=== PATIENT | female | born 1980 | race African-American/Black ===

== ENCOUNTER 2017-06-02 11:42 | Emergency (ER) | payer OTHER ==
[~2017-06-02] VITALS: Ht 177.8 cm; Wt 49.9 kg
[~2017-06-02 11:42] MED LIST: AMOX; SULFA
[2017-06-02 12:04] VITALS: BP 132/82
== END 2017-06-02 12:30 | disposition home or self-care (01) ==
LOC: ER 11:42 → EDBD 11:42 → ER 12:30
DX: S20.361A Insect bite (nonvenomous) of right front wall of thorax, initial encounter (principal); S10.96XA Insect bite of unspecified part of neck, initial encounter; S40.861A Insect bite (nonvenomous) of right upper arm, initial encounter; F20.9 Schizophrenia, unspecified; Z21 Asymptomatic human immunodeficiency virus [HIV] infection status; Z88.6 Allergy status to analgesic agent; W57.XXXA Bitten or stung by nonvenomous insect and other nonvenomous arthropods, initial encounter; Y93.89 Activity, other specified; Y99.8 Other external cause status; Y92.89 Other specified places as the place of occurrence of the external cause

== ENCOUNTER 2017-12-26 18:55 | Emergency (ER) | payer OTHER ==
[~2017-12-26] VITALS: Ht 177.8 cm; Wt 59.0 kg
[2017-12-26 19:03] VITALS: BP 123/80
[2017-12-26] MEDS ORDERED: cefTRIAXone SOD 1,000 MG VL IM ONE (22:00)
[2017-12-26] MEDS ORDERED: methylPREDNISolone SOD SUCC 125 MG/2 ML VL IM ONE (22:00)
== END 2017-12-26 21:53 | disposition home or self-care (01) ==
LOC: ER 18:55 → EDBD 18:55 → ER 21:53
DX: K04.7 Periapical abscess without sinus (principal); Z88.6 Allergy status to analgesic agent; Z79.899 Other long term (current) drug therapy
CPT/HCPCS: 96372; 99284; J0696; J2930

== ENCOUNTER 2018-02-01 09:22 | Emergency (ER) | payer OTHER ==
[~2018-02-01] VITALS: Ht 177.8 cm; Wt 61.2 kg
[2018-02-01 10:27] LABS: Urine Pregnacy Test Negative (Negative)
[2018-02-01 10:31] LABS: Alcohol, Urine < 3.0 mg/dL (0-5); Amphetamine Screen, Urine POSITIVE (NEGATIVE); Barbiturate Scree,Urine NEGATIVE (NEGATIVE); Benzodiazephine Screen, Urine NEGATIVE (NEGATIVE); Cannabinoid Screen, Urine POSITIVE (NEGATIVE); Cocaine Screen, Urine NEGATIVE (NEGATIVE); Opiate Scree,Urine NEGATIVE (NEGATIVE); Phencyclidine Screen, Urine NEGATIVE (NEGATIVE)
[2018-02-01 10:41] LABS: Urine Bacteria NONE SEEN /hpf (None Seen); Urine Blood Negative /uL (Negative); Urine Mucus FEW (None Seen); Urine Specific Gravity 1.028 (1.001-1.035); Urine WBC 1 /hpf (0 - 5)
[2018-02-01] MEDS ORDERED: cefTRIAXone SOD 1,000 MG VL IM ONE (10:45)
[2018-02-01] MEDS ORDERED: diphenhdrAMINE HCL 50 MG/1 ML VL IM ONE (10:45)
[2018-02-01 11:45] VITALS: BP 143/87
== END 2018-02-01 11:44 | disposition home or self-care (01) ==
LOC: ER 09:22
DX: N76.0 Acute vaginitis (principal); F15.10 Other stimulant abuse, uncomplicated; Z20.2 Contact with and (suspected) exposure to infections with a predominantly sexual mode of transmission; Z88.6 Allergy status to analgesic agent; Z21 Asymptomatic human immunodeficiency virus [HIV] infection status
CPT/HCPCS: 80307; 81001; 81025; 87210; 96372; 99283; J0696; J1200

== ENCOUNTER 2023-12-08 20:28 | Inpatient (IN) | payer MEDICAID, OTHER ==
[~2023-12-08] VITALS: Ht 179.1 cm; Wt 45.5 kg
[2023-12-08] MEDS: SULFAMETH-TRIMETH 80/16MG-ML 15 ML in D5W 5% 500 ML IV ONE (23:00)
[2023-12-08 23:05] LABS: Basophils # (auto) 0 10 ^3/uL (0-0.2); Eosinophils # (auto) 0 10 ^3/uL (0-0.8); Eosinophils % (auto) 0.2 % (0.0-7.0); Monocytes # (auto) 0.3 10 ^3/uL (0-1.3); Monocytes % (auto) 4.4 % (0.0-12.0)
[2023-12-08 23:08] LABS: Basophils % (auto) 0.1 % (0.0-2.0); Hematocrit 30.1 % (36.0-46.0); Lymphocytes % (auto) 12.6 % (10.0-50.0); Mean Corpuscular Hemoglobin 27.2 pg (28.0-32.0); Mean Corpuscular Volume 82.2 fL (80.0-100.0); Neutrophils # (auto) 6.4 10 ^3/uL (1.6-8.6); Neutrophils % (auto) 82.7 % (37.0-80.0); Platelet Count (auto) 380 10^3/uL (140-450); Red Blood Cells 3.66 10^6/uL (4.0-5.20); Red Cell Distribution Width 19.8 % (11.8-14.3); White Blood Cell 7.8 10^3/uL (4.4-10.8)
[2023-12-08 23:24] LABS: Alanine Aminotransferase 19 U/L (7-40); Albumin 3.4 g/dL (3.2-4.8); Alkaline Phosphatase 116 U/L (46-116); Anion Gap 5 (5-15); Aspartate Aminotransferase 22 U/L (13-40); BUN/Creatinine Ratio 9.4 (10.0-20.0); Bilirubin, Total 0.2 mg/dL (0.2-1.0); Blood Urea Nitrogen 6 mg/dL (9-23); Calcium 9.3 mg/dL (8.7-10.4); Carbon Dioxide 28 mmol/L (20-31); Chloride 103 mmol/L (98-107); Glucose 81 mg/dL (74-106); Potassium 3.4 mmol/L (3.5-5.1); Sodium 136 mmol/L (136-145); Total Protein 9.1 g/dL (5.7-8.2)
[2023-12-09] VITALS (11 sets, daily range): BP systolic 103; BP diastolic 51; PULSE 80–133; RESP 16–20; TEMP 98; O2SAT 95–100
[2023-12-09] MEDS: levoFLOXacin 500MG 100 ML IV ONE
[2023-12-09] MEDS: FLUCONAZOLE 200MG/100ML 100 ML IV ONE
[2023-12-09] MEDS ORDERED: ACETAMINOPHEN 500 MG TAB PO PRN (03:15)
[2023-12-09] MEDS ORDERED: MORPHINE SULFATE INJ 2 MG/ml SYRG IV PRN (03:15)
[2023-12-09] MEDS: PANTOPRAZOLE 40 MG/10 ML VIAL INJ IV ONE (03:15)
[2023-12-09] MEDS: SODIUM CHLORIDE 0.9% 1,000 ML IV ONE ×2 (03:15→08:01)
[2023-12-09] MEDS: POTASSIUM CHL 20MEQ/100ML 100 ML IV SCH (03:15)
[2023-12-09] MEDS: THIAMINE 100mg/ml INJ (200mg/2ml VIAL) IV ONE (03:30)
[2023-12-09] MEDS: cefTRIAXone 1GM/50ML D5W 50 ML IV SCH (03:45)
[2023-12-09] MEDS: metroNIDAZOLE 500MG/100ML 100 ML IV SCH (03:45)
[2023-12-09] MEDS: IPRATROPIUM BROM 0.5 MG/2.5ML INH SOL NEB SCH ×2 (07:23→12:20)
[2023-12-09 07:36] LABS: Anion Gap 6 (5-15); Carbon Dioxide 29 mmol/L (20-31); Chloride 102 mmol/L (98-107); Potassium 3.7 mmol/L (3.5-5.1); Sodium 137 mmol/L (136-145)
[2023-12-09 07:37] LABS: Calcium 9.5 mg/dL (8.7-10.4)
[2023-12-09 07:41] LABS: Glucose 78 mg/dL (74-106)
[2023-12-09 07:42] LABS: BUN/Creatinine Ratio 12.7 (10.0-20.0); Basophils # (auto) 0 10 ^3/uL (0-0.2); Basophils % (auto) 0.1 % (0.0-2.0); Blood Urea Nitrogen 8 mg/dL (9-23); Eosinophils # (auto) 0 10 ^3/uL (0-0.8); Eosinophils % (auto) 0.3 % (0.0-7.0); Hemoglobin 10.6 g/dL (12.2-16.2); Magnesium 2.2 mg/dL (1.6-2.6); Monocytes # (auto) 0.4 10 ^3/uL (0-1.3); Monocytes % (auto) 5.2 % (0.0-12.0); Neutrophils # (auto) 5.7 10 ^3/uL (1.6-8.6); White Blood Cell 7.5 10^3/uL (4.4-10.8)
[2023-12-09 07:44] LABS: INR 1.11 (0.9-1.15); Partial Thromboplastin Time 27.1 SEC (24.5-34.5); Phosphorus 3.1 mg/dL (2.4-5.1); Prothrombin Time 11.7 sec (9.3-11.8)
[2023-12-09 07:48] LABS: Hematocrit 31.7 % (36.0-46.0); Lymphocytes # (auto) 1.3 10 ^3/uL (0.4-5.4); Lymphocytes % (auto) 17.6 % (10.0-50.0); Mean Corpuscular Hemoglobin 27.5 pg (28.0-32.0); Mean Corpuscular Hgb Conc. 33.5 g/dL (32.0-36.0); Mean Corpuscular Volume 82.1 fL (80.0-100.0); Neutrophils % (auto) 76.8 % (37.0-80.0); Nucleated Red Blood Cells % 0.2 %; Platelet Count (auto) 407 10^3/uL (140-450); Red Blood Cells 3.86 10^6/uL (4.0-5.20); Red Cell Distribution Width 19.7 % (11.8-14.3)
[2023-12-09] MEDS ORDERED: OMNIPAQUE 12mg/ml 500ml ORAL SOLUTION PO ONE (07:57)
[2023-12-09] MEDS ORDERED: LEVALBUTEROL HCL 1.25 MG/3 ML NEB NEB SCH (08:30)
[2023-12-09] MEDS ORDERED: IPRATROPIUM BROM 0.5 MG/2.5ML INH SOL NEB SCH (08:30)
[2023-12-09] MEDS: PANTOPRAZOLE 40 MG/10 ML VIAL INJ IV SCH (10:13)
[2023-12-09] MEDS: LEVALBUTEROL HCL 1.25 MG/3 ML NEB NEB SCH (12:20)
[2023-12-09] MEDS: ERGOCALCIFEROL 50,000 UNIT(1.25MG) CAP PO SCH (13:29)
[2023-12-09 13:30] LABS: Free T3 2.01 pg/mL (2.3-4.2)
[2023-12-09 13:35] LABS: Free T4 (Free Thyroxine) 1.14 ng/dL (0.89-1.76)
[2023-12-09] MEDS ORDERED: IOHEXOL 300 MG/ML 100ML BOTTLE IJ ONE (14:00)
[2023-12-09 15:53] LABS: % Iron Saturation 19.7 % (15-50)
[2023-12-09] MEDS: PIPERACILLIN-TAZOB 3.375GM 100 ML IV ONE (16:25)
[2023-12-09] MEDS: FLUCONAZOLE 200MG/100ML 100 ML IV SCH (16:29)
[2023-12-09] MEDS ORDERED: VANCOMYCIN PER PHARMACY 0 MG IV SCH (16:45)
[2023-12-09] MEDS: VANCOMYCIN 750mg/150ml 150 ML IV ONE (17:00)
[2023-12-09] MEDS: MORPHINE SULFATE INJ 2 MG/ml SYRG IV PRN (19:29)
[2023-12-09] MEDS ORDERED: DEXTROSE (50%) 50ML SYRG IV PRN (22:00)
[2023-12-09] MEDS: SODIUM CHLORIDE 0.9% 1,000 ML IV SCH (22:32)
[2023-12-09 23:52] LABS: COVID19 ANTIGEN SOFIA FIA NEGATIVE (NEGATIVE)
[2023-12-09 23:53] LABS: Rapid Influenza A Negative (Negative); Rapid Influenza B Negative (Negative)
[2023-12-10] MEDS: InsuLIN REG 1unit/0.01ml Soln (100units/ml) SC SCH
[2023-12-10] MEDS: PIPERACILLIN-TAZOB 3.375GM 100 ML IV SCH (00:17)
[2023-12-10 00:31] VITALS: BP 141/77; PULSE 84; RESP 16; TEMP 98.2; O2SAT 96
[2023-12-10] MEDS: ACCU-CHEK COMFORT CURVE STRIP VI SCH (00:34)
[2023-12-10 05:00] VITALS: BP 130/50; PULSE 94; RESP 18; TEMP 98.6; O2SAT 97
[2023-12-10 07:15] VITALS: PULSE 78; RESP 18; O2SAT 98
[2023-12-10 07:21] VITALS: PULSE 85; RESP 18; O2SAT 100
[2023-12-10 07:29] LABS: Basophils # (auto) 0 10 ^3/uL (0-0.2); Basophils % (auto) 0.3 % (0.0-2.0); Eosinophils # (auto) 0 10 ^3/uL (0-0.8); Eosinophils % (auto) 0.6 % (0.0-7.0); Hematocrit 26.8 % (36.0-46.0); Lymphocytes % (auto) 16.3 % (10.0-50.0); Mean Corpuscular Hemoglobin 27.3 pg (28.0-32.0); Mean Corpuscular Hgb Conc. 33.5 g/dL (32.0-36.0); Mean Corpuscular Volume 81.5 fL (80.0-100.0); Monocytes # (auto) 0.3 10 ^3/uL (0-1.3); Monocytes % (auto) 4.4 % (0.0-12.0); Neutrophils # (auto) 4.8 10 ^3/uL (1.6-8.6); Neutrophils % (auto) 78.4 % (37.0-80.0); Platelet Count (auto) 396 10^3/uL (140-450); Red Blood Cells 3.29 10^6/uL (4.0-5.20); Red Cell Distribution Width 19.4 % (11.8-14.3); White Blood Cell 6.1 10^3/uL (4.4-10.8)
[2023-12-10 08:10] LABS: Alanine Aminotransferase 10 U/L (7-40); Albumin 2.8 g/dL (3.2-4.8); Alkaline Phosphatase 96 U/L (46-116); Anion Gap 6 (5-15); Aspartate Aminotransferase 11 U/L (13-40); Bilirubin, Total < 0.2 mg/dL (0.2-1.0); Calcium 8.5 mg/dL (8.7-10.4); Carbon Dioxide 24 mmol/L (20-31); Chloride 108 mmol/L (98-107); Glucose 82 mg/dL (74-106); Potassium 3.4 mmol/L (3.5-5.1); Sodium 138 mmol/L (136-145); Total Protein 7.8 g/dL (5.7-8.2)
[2023-12-10 08:53] LABS: BUN/Creatinine Ratio 7.6 (10.0-20.0); Blood Urea Nitrogen 5 mg/dL (9-23)
[2023-12-10 09:00] VITALS: BP 113/76; PULSE 94; RESP 18; TEMP 97.7; O2SAT 97
[2023-12-10] MEDS: FLUCONAZOLE 200MG/100ML 100 ML IV SCH (09:43)
[2023-12-10 10:38] VITALS: BP 121/83; PULSE 84; RESP 18
[2023-12-11 05:06] LABS: Basos 1 % (Not Estab.); Eos 1 % (Not Estab.); Eos (Absolute) 0.1 x10E3/uL (0.0-0.4); Hematocrit 28.3 % (34.0-46.6); Immature Granulocytes (Abs) 0 x10E3/uL (0.0-0.1); Lymphs 20 % (Not Estab.); Lymphs (Absolute) 1.2 x10E3/uL (0.7-3.1); MCH 26.4 pg (26.6-33.0); MCHC 31.8 g/dL (31.5-35.7); MCV 83 fL (79-97); Monocytes 4 % (Not Estab.); Monocytes (Absolute) 0.3 x10E3/uL (0.1-0.9); Neutrophils 74 % (Not Estab.); Neutrophils (Absolute) 4.7 x10E3/uL (1.4-7.0); Platelets 393 x10E3/uL (150-450); RBC 3.41 x10E6/uL (3.77-5.28); RDW 17.5 % (11.7-15.4); WBC 6.3 x10E3/uL (3.4-10.8)
[2023-12-12 11:06] LABS: % CD 4 Pos Lymph 8.8 % (30.8-58.5); % CD 8 Pos Lymph 79.1 % (12.0-35.5); Absolute CD 4 Helper 106 /uL (359-1519); CD4/CD8 Ratio 0.11 (0.92-3.72)
== END 2023-12-10 13:56 | disposition left against medical advice (07) | DRG 892 ==
LOC: ER 20:28 → TELE 12-09 03:13 → TELE-WESTW 12-09 18:50
PROVIDERS: ADMIT Internal Medicine; ATTEND Internal Medicine
DX: J15.69 Pneumonia due to other Gram-negative bacteria (principal); B20 Human immunodeficiency virus [HIV] disease; K22.3 Perforation of esophagus; E43 Unspecified severe protein-calorie malnutrition; K29.71 Gastritis, unspecified, with bleeding; E88.A Wasting disease (syndrome) due to underlying condition; J15.9 Unspecified bacterial pneumonia; Z20.822 Contact with and (suspected) exposure to COVID-19; E87.6 Hypokalemia; F17.200 Nicotine dependence, unspecified, uncomplicated; E55.9 Vitamin D deficiency, unspecified; F20.9 Schizophrenia, unspecified; D53.9 Nutritional anemia, unspecified; K44.9 Diaphragmatic hernia without obstruction or gangrene; Z87.11 Personal history of peptic ulcer disease; Z87.440 Personal history of urinary (tract) infections; Z68.1 Body mass index [BMI] 19.9 or less, adult; Z88.8 Allergy status to other drugs, medicaments and biological substances; Z79.899 Other long term (current) drug therapy
CPT/HCPCS: 36415; 71045; 71260; 74176; 74177; 80048; 80053; 80320; 82306; 82607; 82746; 82962; 83036; 83540; 83550; 83735; 83880; 84100; 84439; 84443; 84481; 84484; 84702; 85025; 85610; 85730; 86360; 86703; 87070; 87077; 87205; 87389; 87426; 87804; 94640; G0378; J1450; J2470; J2543; J3490

== ENCOUNTER 2024-09-27 18:11 | Inpatient (IN) | payer MEDICAID ==
[~2024-09-27] VITALS: Ht 167.6 cm; Wt 63.3 kg
--- NOTE | 2024-09-27 18:30 | ED.PDOC ---
History of Present Illness HPI Comments 44-year-old female who comes in with chief complaint of bilateral leg swelling since September 13. The patient was admitted to [facility] for seven days for pneumonia and then discharged from [facility] on the 13 of September. The patient states that she is having some shortness a breath with exertion but denies any chest pain, nausea or vomiting. There has been no diarrhea or fever. 911 was called and the patient was transported to our facility without any difficulty. Time Seen by MD: 18:14 Primary Care Provider: N/A Reviewed Notes: Nurses Notes, Medications, Allergies (No allergies to medications) Allergies: Coded Allergies: Ibuprofen (Verified Allergy, Unknown, 01/03/14) Uncoded Allergies: NO KNOWN (Allergy, Unknown, 12/08/23) Home Meds No Active Prescriptions or Reported Meds Information Source: Patient Mode of Arrival: EMS Severity: Moderate Duration: Since onset Past Medical History PAST MEDICAL HISTORY: Anxiety, HIV, PUD, Schizophrenia Surgical History: Denies all surgeries ABRADING MACHINE TENDER History: No Pertinent ABRADING MACHINE TENDER History Family History Family History: No family hx of Cancer, No family hx of DM Social History Smoker: Non-Smoker Alcohol: Denies ETOH Use Drugs: Denies Drug Use Lives In: Home Constitutional: denies: chills, diaphoresis, fatigue, fever, malaise, sweats, weakness, others EENTM: denies: blurred vision, double vision, ear bleeding, ear discharge, ear drainage, ear pain, ear ringing, eye pain, eye redness, hearing loss, mouth pain, mouth swelling, nasal discharge, nose bleeding, nose congestion, nose pain, photophobia, tearing, throat pain, throat swelling, voice changes, others Respiratory: denies: cough, hemoptysis, orthopnea, SOB at rest, shortness of breath, SOB with excertion, stridor, wheezing, others Cardiovascular: denies: chest pain, dizzy spells, diaphoresis, Dyspnea on exertion, edema, irregular heart beat, left arm pain, lightheadedness, palpitations, PND, syncope, others Gastrointestinal: denies: abdomen distended, abdominal pain, blood streaked bowels, constipated, diarrhea, dysphagia, difficulty swallowing, hematemesis, melena, nausea, poor appetite, poor fluid intake, rectal bleeding, rectal pain, vomiting, others Genitourinary: denies: abnormal vagina bleeding, burning, dyspareunia, dysuria, flank pain, frequency, hematuria, incontinence, pain, , vagina discharge, urgency, others Neurological: denies: dizziness, fainting, headache, left sided numbness, left sided weakness, numbness, paresthesia, pre-existing deficit, right sided numbness, right sided weakness, seizure, speech problems, tingling, tremors, weakness, others Musculoskeletal: reports: joint swelling (b/l lower extremity); denies: back pain, gout, joint pain, muscle pain, muscle stiffness, neck pain, others Integumetry: denies: bruises, change in color, change in hair/nails, dryness, laceration, lesions, lumps, rash, wounds, others Allergic/Immunocompromised: denies: Difficulty Healing, Frequent Infections, Hives, Itching, others Hematologic/Lymphatic: denies: anemia, blood clots, easy bleeding, easy b ruising, swollen glands, others Endocrine: denies: excessive hunger, excessive sweating, excessive thirst, excessive urination, flushing, intolerance to cold, intolerance to heat, unexplained weight gain, unexplained weight loss, others Psychiatric: denies: anxiety, bipolar disorder, depression, hopeless, panic disorder, schizophrenia, sleepless, suicidal, others Physical Exam General Appearance: Moderate Distress HEENT: Normal ENT Inspection, Pharynx Normal, TMs Normal Neck: Full Range of Motion, Non-Tender, Normal, Normal Inspection Respiratory: Chest Non-Tender, Lungs Clear, No Accessory Muscle Use, No Respiratory Distress, Normal Breath Sounds Cardiovascular: No Edema, No JVD, No Murmur, No Gallop, Regular Rate/Rhythm Breast Exam: Deferred Gastrointestinal: No Organomegaly, Non Tender, No Pulsatile Mass, Normal Bowel Sounds, Soft Genitalia: Deferred Pelvic: Deferred Rectal: Deferred Extremities: No calf tenderness, Normal capillary refill, Normal inspection, Normal range of motion, Non-tender, No pedal edema Musculoskeletal : Apperance: Normal Neurologic: Alert, technical inspector II-XII nml as Tested, No Motor Deficits, Normal Affect, Normal Mood, No Sensory Deficits Cerebellar Function: Normal Reflexes: Normal Skin: Dry, Normal Color, Warm Lymphatic: No Adenopathy Was a procedure done? Was a procedure done?: No EKG EKG : Pulse Rate (adult): 106 [place]: Normal Cardiac Rhythm: ST ST: Nonsp (Low voltage) Differential Dx Considerations may include: Acute on chronic diastolic heart failure, CHF, pedal edema, electrolyte imbalance, renal failure X-Ray, Labs, Meds, VS Vital Signs Date Time Temp Pulse Resp B/P (MAP) Pulse Ox O2 Delivery O2 Flow Rate FiO2 09/27/24 20:00 117 16 112/76 (88) 97 09/27/24 19:36 118/87 09/27/24 19:04 106 09/27/24 19:01 102 18 96 Room Air* 0 21 09/27/24 18:46 97.9 110 22 103/73 99 97.9 09/27/24 18:44 98.2 105 24 88/61 (70) 97 98.2 09/27/24 18:24 106 Lab Test 09/27/24 19:26 09/27/24 18:26 Range/Units Troponin I High Sensitivity 24 24 </=34 ng/L White Blood Count 5.1 4.4-10.8 10^3/uL Red Blood Count 3.71 L 4.0-5.20 10^6/uL Hemoglobin 8.7 L 12.2-16.2 g/dL Hematocrit 27.7 L 36.0-46.0 % Mean Corpuscular Volume 74.7 L 80.0-100.0 fL Mean Corpuscular Hemoglobin 23.5 L 28.0-32.0 pg Mean Corpuscular Hemoglobin Concent 31.5 L 32.0-36.0 g/dL Red Cell Distribution Width 19.6 H 11.8-14.3 % Platelet Count 360 140-450 10^3/uL Mean Platelet Volume 6.8 L 6.9-10.8 fL Neutrophils (%) (Auto) 45.9 37.0-80.0 % Lymphocytes (%) (Auto) 43.8 10.0-50.0 % Monocytes (%) (Auto) 8.0 0.0-12.0 % Eosinophils (%) (Auto) 1.4 0.0-7.0 % Basophils (%) (Auto) 0.9 0.0-2.0 % Neutrophils # (Auto) 2.3 1.6-8.6 10 ^3/uL Lymphocytes # (Auto) 2.2 0.4-5.4 10 ^3/uL Monocytes # (Auto) 0.4 0-1.3 10 ^3/uL Eosinophils # (Auto) 0.1 0-0.8 10 ^3/uL Basophils # (Auto) 0 0-0.2 10 ^3/uL Nucleated Red Blood Cells 0.3 % Sodium Level 143 136-145 mmol/L Potassium Level 3.5 3.5-5.1 mmol/L Chloride Level 110 H 98-107 mmol/L Carbon Dioxide Level 23 20-31 mmol/L Anion Gap 10 5-15 Blood Urea Nitrogen 12 9-23 mg/dL Creatinine 0.79 0.550-1.02 mg/dL Glomerular Filtration Rate Calc 93 >90 mL/min BUN/Creatinine Ratio 15.2 10.0-20.0 Serum Glucose 85 74-106 mg/dL Calcium Level 8.7 8.7-10.4 mg/dL B-Type Natriuretic Peptide 1028.34 0-100 pg/mL Current Medications Medications (Trade) Dose Ordered Sig/Dilip Route Start Time Stop Time Status Last Admin Furosemide (Lasix Injection) 40 mg ONCE ONCE IV 09/27/24 18:15 09/27/24 18:17 DC 09/27/24 19:36 EXAM: XY CHEST PORTABLE IMPRESSION: Cardiomegaly, pulmonary vascular congestion, and right pleural effusion. The CBC is within normal limits except for a hemoglobin of 8.7 and hematocrit of 27.7 The platelets of 360 The chemistry panel is within normal limits The BNP is elevated at 1028 The chest x-ray shows some cardiomegaly with pulmonary vascular congestion The chest x-ray shows a right pleural effusion At this time, the patient is being admitted to the hospitalist Images Reviewed?: Images reviewed and evaluated by me Time of 1ST Reevaluation: 19:03 Reevaluation 1ST: Unchanged Patient Education/Counseling: Diagnosis, Treatment, Prognosis Family Education/Counseling: No Family Present SEPSIS Sepsis Screen Physician Orders Urinalysis (09/27/24 18:14) Chest Portable (09/27/24 18:14) Heplock Iv (09/27/24 18:14) Pulse Oximetry (09/27/24 18:14) Outpatient Physical Therapist Assistant (09/27/24 18:14) Blood Pressure (09/27/24 18:14) Drug Screen (09/27/24 18:14) Troponin-I Hs (09/27/24 21:14) Electrocardigram (09/27/24 19:14) Electrocardigram (09/27/24 21:14) Vital Signs Date Time Temp Pulse Resp B/P (MAP) Pulse Ox O2 Delivery O2 Flow Rate FiO2 09/27/24 20:00 117 16 112/76 (88) 97 09/27/24 19:36 118/87 09/27/24 19:04 106 09/27/24 19:01 102 18 96 Room Air* 0 21 09/27/24 18:46 97.9 110 22 103/73 99 97.9 09/27/24 18:44 98.2 105 24 88/61 (70) 97 98.2 09/27/24 18:24 106 Laboratory Tests Test 09/27/24 18:26 White Blood Count 5.1 10^3/uL (4.4-10.8) Medications Medications Dose Ordered Sig/Dilip Route Start Time Stop Time Status Last Admin Dose Admin Furosemide 40 mg ONCE ONCE IV 09/27/24 18:15 09/27/24 18:17 DC 09/27/24 19:36 Departure 1 Departure Time of Disposition: 19:02 Impression: Primary Impression: Acute diastolic heart failure Additional Impressions: Pedal edema Pleural effusion, right Disposition: ADMITTED INPATIENT Admit to: Tele Condition: Fair e-Prescriptions No Active Prescriptions or Reported Meds Critical Care Note Critical Care Time?: Yes (45 min-critical care time only) Stability Stability form required: Yes Unstable for transfer: Telemetry monitoring (Telemetry monitoring required), ED Physician Assesment (Clinical assesment) Heart Score Heart Score: Heart Score Response (Comments) Value History Moderate Suspicious 1 EKG Normal 0 Age 45-64 1 Risk Factors 1 or 2 risk factors 1 Troponin Normal limit 0 Total 3 I personally scribed for MIKAL POST MD ([email or web address]) on 09/27/24 at 19:42. Electronically submitted by Shannan Euceda ([facility]). I personally scribed for MIKAL POST MD ([email or web address]) on 09/27/24 at 19:44. Electronically submitted by Shannan Euceda ([facility]). MIKAL POST MD Sep 27, 2024 18:30
[2024-09-27 18:42] LABS: Hemoglobin 8.7 g/dL (12.2-16.2)
[2024-09-27 18:43] LABS: Hematocrit 27.7 % (36.0-46.0); Mean Corpuscular Hemoglobin 23.5 pg (28.0-32.0); Mean Corpuscular Volume 74.7 fL (80.0-100.0); Nucleated Red Blood Cells % 0.3 %
[2024-09-27 18:50] LABS: Sodium 143 mmol/L (136-145)
[2024-09-27 18:51] LABS: Anion Gap 10 (5-15); Carbon Dioxide 23 mmol/L (20-31)
[2024-09-27 18:56] LABS: BUN/Creatinine Ratio 15.2 (10.0-20.0); Blood Urea Nitrogen 12 mg/dL (9-23); Glucose 85 mg/dL (74-106)
[2024-09-27 19:01] VITALS: PULSE 102; RESP 18; O2SAT 96
[2024-09-27 19:01] LABS: Calcium 8.7 mg/dL (8.7-10.4); Chloride 110 mmol/L (98-107); Potassium 3.5 mmol/L (3.5-5.1)
--- NOTE | 2024-09-27 19:01 | ECG ---
[facility] Test Date: 2024-09-27 Test Time: 18:20:07 Pat Name: LILLIAN RAMIREZ Department: ED Room: [facility]24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
--- NOTE | 2024-09-27 19:34 | DVH ---
EXAM: XY CHEST PORTABLE CLINICAL HISTORY: sob TECHNIQUE: Single AP view of the chest WID: COMPARISON: None FINDINGS: Lines and tubes: None Chest: Cardiomegaly and pulmonary vascular congestion. Small right pleural effusion. No pneumothorax or left pleural effusion. The osseous structures are grossly intact. IMPRESSION: Cardiomegaly, pulmonary vascular congestion, and right pleural effusion.
[2024-09-27] MEDS: FUROSEMIDE 40 MG/4 ML VIAL IV ONE (19:36)
[2024-09-27 20:28] LABS: Urine Protein, UAD Negative (Negative)
[2024-09-27 20:44] LABS: Amphetamine Screen, Urine Pos (NEGATIVE); Barbiturate Scree,Urine Neg (NEGATIVE); Benzodiazephine Screen, Urine Neg (NEGATIVE); Cannabinoid Screen, Urine Neg (NEGATIVE); Cocaine Screen, Urine Neg (NEGATIVE); Opiate Scree,Urine Neg (NEGATIVE); Phencyclidine Screen, Urine Neg (NEGATIVE)
[2024-09-27] MEDS ORDERED: ONDANSETRON HCL 4 MG/2 ML VIAL IV PRN (20:45)
--- NOTE | 2024-09-27 20:46 | DVHHP2 ---
History of Present Illness Reason for Visit: Lower extremity swelling History of Present Illness 44-year-old female presents for evaluation of lower extremity swelling. Patient reports not taking her Lasix for the past two days. She reports worsening lower extremity swelling with associated chest tightness and mild shortness for breath. Denies fever or chills. Past Medical History Schizophrenia, HIV, congestive heart failure Past Surgical History Denies Family History Noncontributory Smoke: No ALCOHOL: none Drugs: None Lives: with Family Review of Systems Review of Systems Review of systems are currently negative otherwise addressed in HPI. Allergies: Coded Allergies: Ibuprofen (Verified Allergy, Unknown, 01/03/14) Uncoded Allergies: NO KNOWN (Allergy, Unknown, 12/08/23) Exam Vital Signs Vital Signs Date Time Temp Pulse Resp B/P (MAP) Pulse Ox O2 Delivery O2 Flow Rate FiO2 09/27/24 20:00 117 16 112/76 (88) 97 09/27/24 19:01 Room Air* 0 21 09/27/24 18:46 97.9 97.9 Exam Gen: 44-year-old female in mild distress Skin: Warm, dry, normal color and texture, no rash. HEENT: Normocephalic atraumatic, mucous membranes moist and pink. Neck: Cervical and supraclavicular nodes normal without enlargement, trachea is midline, thyroid gland is normal without masses. Pulmonary: Clear to auscultation and percussion bilaterally. Cardiac: Regular rate and rhythm. No murmur Abdomen: Soft, nontender, nondistended, bowel sounds present all 4 quadrants, no guarding, no rigidity, no organomegaly. Extremities: No cyanosis, clubbing, plus two bilateral lower extremity edema Neuro: Cranial nerves II through XII grossly intact, normal affect and speech, no focal motor deficits. Labs/Xrays ORDERING PHYSICIAN: MIKAL POST MD PROCEDURE(s): CXRP - CHEST PORTABLE REASON: sob ORDER NUMBER(s): [id number], ACCESSION NUMBER(s): [id number] EXAM: XY CHEST PORTABLE CLINICAL HISTORY: sob TECHNIQUE: Single AP view of the chest WID: COMPARISON: None FINDINGS: Lines and tubes: None Chest: Cardiomegaly and pulmonary vascular congestion. Small right pleural effusion. No pneumothorax or left pleural effusion. The osseous structures are grossly intact. IMPRESSION: Cardiomegaly, pulmonary vascular congestion, and right pleural effusion. Labs Test 09/27/24 19:26 09/27/24 18:26 09/27/24 18:14 Range/Units Troponin I High Sensitivity 24 </=34 ng/L White Blood Count 5.1 4.4-10.8 10^3/uL Red Blood Count 3.71 L 4.0-5.20 10^6/uL Hemoglobin 8.7 L 12.2-16.2 g/dL Hematocrit 27.7 L 36.0-46.0 % Mean Corpuscular Volume 74.7 L 80.0-100.0 fL Mean Corpuscular Hemoglobin 23.5 L 28.0-32.0 pg Mean Corpuscular Hemoglobin Concent 31.5 L 32.0-36.0 g/dL Red Cell Distribution Width 19.6 H 11.8-14.3 % Platelet Count 360 140-450 10^3/uL Mean Platelet Volume 6.8 L 6.9-10.8 fL Neutrophils (%) (Auto) 45.9 37.0-80.0 % Lymphocytes (%) (Auto) 43.8 10.0-50.0 % Monocytes (%) (Auto) 8.0 0.0-12.0 % Eosinophils (%) (Auto) 1.4 0.0-7.0 % Basophils (%) (Auto) 0.9 0.0-2.0 % Neutrophils # (Auto) 2.3 1.6-8.6 10 ^3/uL Lymphocytes # (Auto) 2.2 0.4-5.4 10 ^3/uL Monocytes # (Auto) 0.4 0-1.3 10 ^3/uL Eosinophils # (Auto) 0.1 0-0.8 10 ^3/uL Basophils # (Auto) 0 0-0.2 10 ^3/uL Nucleated Red Blood Cells 0.3 % Sodium Level 143 136-145 mmol/L Potassium Level 3.5 3.5-5.1 mmol/L Chloride Level 110 H 98-107 mmol/L Carbon Dioxide Level 23 20-31 mmol/L Anion Gap 10 5-15 Blood Urea Nitrogen 12 9-23 mg/dL Creatinine 0.79 0.550-1.02 mg/dL Glomerular Filtration Rate Calc 93 >90 mL/min BUN/Creatinine Ratio 15.2 10.0-20.0 Serum Glucose 85 74-106 mg/dL Calcium Level 8.7 8.7-10.4 mg/dL B-Type Natriuretic Peptide 1028.34 0-100 pg/mL Urine Color Colorless Yellow Urine Clarity Clear Clear Urine pH 6.0 5.0-9.0 Urine Specific [place] 1.008 1.001-1.035 Urine Protein Negative Negative Urine Ketones Negative Negative Urine Blood Negative Negative /uL Urine Nitrite Negative Negative Urine Bilirubin Negative Negative Urine Urobilinogen Normal Negative mg/dL Urine Leukocyte Esterase Trace Negative /uL Urine RBC 1 0 - 4 /hpf Urine Microscopic WBC 2 0-5 /HPF Urine Squamous Epithelial Cells Few <5 /hpf Urine Bacteria Few H None Seen /hpf Urine Glucose Normal Normal mg/dL SEPSIS Sepsis Screen Date sepsis recognized/suspect: Sep 27, 2024 Time Sepsis recognized/suspect: 1809 Recent Procedure: No On Antibiotic Therapy: No Respiratory Rate >20: Yes Heart Rate >90: Yes Temp<36 C (96.8 F) or >38.3 C: No SBP <90 or MAP <65 mmHG: No New Acute Mental Status Change: No Is the patient on CPAP, BIPAP,: No Physician Orders Chest Portable (09/27/24 18:14) Heplock Iv (09/27/24 18:14) Pulse Oximetry (09/27/24 18:14) Educational Technology Specialist (09/27/24 18:14) Blood Pressure (09/27/24 18:14) Drug Screen (09/27/24 18:14) Electrocardigram (09/27/24 19:14) Electrocardigram (09/27/24 21:14) Admit (09/27/24 20:24) Vital Signs Date Time Temp Pulse Resp B/P (MAP) Pulse Ox O2 Delivery O2 Flow Rate FiO2 09/27/24 20:00 117 16 112/76 (88) 97 09/27/24 19:36 118/87 09/27/24 19:04 106 09/27/24 19:01 102 18 96 Room Air* 0 21 09/27/24 18:46 97.9 110 22 103/73 99 97.9 09/27/24 18:44 98.2 105 24 88/61 (70) 97 98.2 09/27/24 18:24 106 Laboratory Tests Test 09/27/24 18:26 White Blood Count 5.1 10^3/uL (4.4-10.8) Medications Medications Dose Ordered Sig/Dilip Route Start Time Stop Time Status Last Admin Dose Admin Furosemide 40 mg ONCE ONCE IV 09/27/24 18:15 09/27/24 18:17 DC 09/27/24 19:36 40 MG Assessment/Plan Assessment/Plan Assessment Acute on chronic congestive heart failure Plan Admit the patient to [facility] to the hospitalist OLLIE Archibald Resume home medications Continue treatment per orders. Plan discussed with: Patient My Orders Orders - PRERNA KAN Procedure Category Date Status Time Admit ADMIT 09/27/24 Transmitted 20:24 Date of Service: Sep 27, 2024 Billing Provider: PRERNA KAN Common Visit Codes: [id number] INP/OBS CARE (HIGH) PRERNA KAN Sep 27, 2024 20:46
[2024-09-27 21:30] VITALS: PULSE 109; RESP 18; O2SAT 96
[2024-09-27] MEDS: ATORVASTATIN 20 MG TAB PO SCH (22:25)
[2024-09-27] MEDS: CARVEDILOL 3.125 MG TAB PO SCH (22:26)
[2024-09-28] VITALS (8 sets, daily range): BP systolic 90–113; BP diastolic 63–82; PULSE 82–102; RESP 14–21; TEMP 97.7–98.3; O2SAT 95–99
[2024-09-28 05:55] LABS: Calcium 8.9 mg/dL (8.7-10.4); Sodium 143 mmol/L (136-145)
[2024-09-28 05:56] LABS: Anion Gap 9 (5-15); Carbon Dioxide 26 mmol/L (20-31)
[2024-09-28] MEDS: FUROSEMIDE 20 MG/2 ML VIAL IV SCH (06:00)
[2024-09-28 06:01] LABS: BUN/Creatinine Ratio 12.5 (10.0-20.0); Blood Urea Nitrogen 10 mg/dL (9-23); Glucose 89 mg/dL (74-106)
[2024-09-28 06:09] LABS: Chloride 108 mmol/L (98-107); Potassium 3.2 mmol/L (3.5-5.1)
[2024-09-28 09:49] LABS: Alanine Aminotransferase 28.0 U/L (7-40); Alkaline Phosphatase 108.0 U/L (46-116); Bilirubin, Direct 0.2 mg/dL (<0.3); Bilirubin, Total 0.5 mg/dL (0.2-1.0); Total Protein 8.0 g/dL (5.7-8.2)
[2024-09-28 09:50] LABS: Albumin 3.0 g/dL (3.2-4.8)
[2024-09-28 09:51] LABS: Hematocrit 28.9 % (36.0-46.0); Hemoglobin 9.1 g/dL (12.2-16.2); Mean Corpuscular Hemoglobin 23.6 pg (28.0-32.0); Mean Corpuscular Volume 74.6 fL (80.0-100.0)
[2024-09-28 10:09] LABS: Total Cells Counted 100.0 (100)
[2024-09-28 10:56] LABS: Hepatitis B Surface Antigen Negative (Negative)
[2024-09-28 10:57] LABS: Hepatitis C Antibody Negative (Negative)
[2024-09-28] MEDS: POTASSIUM EFFERVESENT TAB 25 MEQ PO ONE (11:08)
[2024-09-28] MEDS: FUROSEMIDE 20 MG/2 ML VIAL IV ONE (13:15)
--- NOTE | 2024-09-28 14:49 | DVHPNRES ---
Progress Note Date Seen: Sep 28, 2024 Resident Creating Document: CHRISTOPHER BOWMAN RESIDENT Medical Necessity Reason Pt with a Central, PICC or Fol: No Subjective Review of Systems Patient is a 44 year old female with prior medical history of CHF, AIDS, and methamphetamine use who presented to the ED with chief complaint of bilateral leg swelling. Per the patient, she began to notice the bilateral leg swelling beginning in her feet after her discharge from [facility] on September 13, where she was admitted for pneumonia. She states that the swelling progressed and extended to her thighs, associated with pain when ambulating, and shortness of breath when walking from her car to her room, which prompted her to seek medical care. She denied chest pain, shortness of breath at rest, palpitations, fevers, chills, nausea, vomiting, and other symptoms. On evaluation in the ED, 12 Lead EKG shows sinus tachycardia, initial labs show CBC and CMP within normal range, troponins negative, BNP 1028.34, and UDS positive for amphetamines use. Chest Xray shows cardiomegaly, pulmonary vascular congestion, and right pleural effusion. She was started on IV Lasix and was admitted for further work up and monitoring. Surgical: Reconstructive surgery of the eye socket Social: Refers amphetamine use stating she last used 4 days ago, refers she smoked 1-2 cigarettes a week for about 9 years with cessation in May of 2024, denies alcohol use. Currently is a resident at [facility]. Patient seen at bedside. Patient is AOx3, states she feels better, leg swelling as reduced and she is able to ambulate better, and shortness of breath has resolved. She denies chest pain, shortness of breath, leg pain, palpitations, fever, nausea and vomiting. No adverse events over night. Patient was slightly hypotensive, but otherwise stable. Per the patient, in May she had an Echocardiogram done at [facility] which showed an EF of 15%, however she still has not seen a wood casket assembler and isn't on any treatment as of yet. Pending echocardiogram. Cardiology has been consulted for initiation of GDMT. Review of Systems: Constitutional: Denies weight loss, fever and chills. HEENT: Denies changes in vision and hearing. Respiratory: Denies shortness of breath and cough Cardiovascular: Denies chest discomfort or palpitations GI: Denies abdominal distention, abdominal pain, diarrhea : Denies dysuria and urinary frequency. Musculoskeletal: Denies symptoms Skin: Denies rash and pruritus. Neurological: denies dizziness headache vision or hearing problems Objective vital signs Vital Sign Date Time Temp Pulse Resp B/P (MAP) Pulse Ox O2 Delivery O2 Flow Rate FiO2 09/28/24 13:15 102/75 09/28/24 12:09 101 09/28/24 09:00 98.3 18 95 98.3 09/28/24 08:00 Room Air* 0 21 Total Intake and Output 09/27/24 09/27/24 09/28/24 15:00 23:00 07:00 Intake Total 200 ml Output Total 675 ml Balance -475 ml medications Current Medications Medications Dose Ordered Sig/Dilip Route Start Time Stop Time Status Last Admin Dose Admin Furosemide 20 mg BIDD IV 09/28/24 06:00 Aspirin 81 mg DAILY PO 09/28/24 10:00 09/28/24 11:09 81 MG Atorvastatin Calcium 40 mg HS PO 09/27/24 22:00 09/27/24 22:25 40 MG Acetaminophen 650 mg Q6HP PRN PO 09/27/24 20:45 Carvedilol 3.125 mg Q12HR PO 09/27/24 22:00 09/28/24 11:09 3.125 MG Examination General: Patient is comfortable, alert and oriented in person place and time. Patient following commands HEENT: Normocephalic, atraumatic, EOM intact, pink conjunctiva, pink moist mucous membrane Respiratory/pulmonary: Bilateral chest expansion, clear lungs bilaterally, vesicular murmurs present in almost all lung juarez, with crackles and inspiratory wheezes mainly in R lower lung field. Cardiovascular: Normal RRR, normal S1 and S2 Abdomen: Abdomen nondistended, normal bowel sounds, soft, no pain to palpation in any of the abdominal quadrants, no palpable masses. Extremities: No deformities, bilateral pedal edema present +1, normal pulses. Skin: No rashes or pruritus Neurological: Intact cranial nerves with no focal neurologic deficits laboratory and microbiology Laboratory Tests 09/28/24 05:10 09/28/24 05:01 Test 09/28/24 05:10 Range/Units Serum Glucose 89 74-106 mg/dL Problem List/Assessment/Plan Problem List/Assessment/Plan Assessment and Plan: Acute on Chronic HFrEF exacerbation -Furosemide 20 mg IV daily -Carvedilol 3.125 mg q12 hr PO -Pending Echo -Cardiology has been consulted -Fluid restriction: 1200 mL -Cardiac consistent diet -Strict Is and Os Right Pleural Effusion -Chest Xray: Cardiomegaly, pulmonary vascular congestion, and right pleural effusion. History of AIDS -CD4/CD8 ratio profile Methamphetamine Use -UDS: + amphetamine -Counseled on cessation for over 15 minutes Non-compliance with medications DVT prophylaxis: Ambulatory Case discussed with Dr. Tucker. Goals of care discussed with the patient for over 30 minutes. States she understands and agrees. Plan discussed with: Patient My Orders My Orders Orders - CHRISTOPHER BOWMAN Procedure Category Date Status Time * Cardiology Consult CONS 09/28/24 Transmitted 14:26 Date of Service: Sep 28, 2024 Billing Provider: LUDIVINA TUCKER MD Common Visit Codes: [id number] INP/OBS CARE(HIGH) Secondary Visit Codes: [id number] CARE PLAN 30 MINUTES CHRISTOPHER BOWMAN RESIDENT Sep 28, 2024 14:49 LUDIVINA TUCKER MD Sep 29, 2024 21:03
--- NOTE | 2024-09-28 16:08 | DVHINCON2 ---
Date Seen: Sep 28, 2024 Referring Physician MD Amrit resident History of Present Illness This is a 44-year-old female patient who presents to emergency room with chief complaint of bilateral lower extremity edema for two weeks prior to emergency room arrival. Cardiology has been consulted at this time for patient's history of congestive heart failure. Initial twelve lead electrocardiogram reveals sinus tachycardia with prolonged QTc interval. Initial troponin level of 24ng/L with flat trend thereafter. Initial BNP level of 1028.34pg/mL. Significant past medical history includes congestive heart failure, AIDS, tobacco use, and methamphetamine use. 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 Past Medical History Past medical history reviewed. No other significant than mentioned above. Past Surgical History Reconstruction of the eye socket Family History: Diabetes mellitus G8 MOTHER Hypertension G8 MOTHER Family History Family history reviewed. Social History Patient has history of tobacco use, states that she has recently tried to smoke cigarette and became on short of breath (prior history of 1-2 cigarettes per week) Patient admits to recent methamphetamine use, approximately four days prior to emergency room arrival Denies alcohol use Allergies: Coded Allergies: Ibuprofen (Verified Allergy, Unknown, 01/03/14) Uncoded Allergies: NO KNOWN (Allergy, Unknown, 12/08/23) Home Meds No Active Prescriptions or Reported Meds Current Medications Current Medications Medications (Trade) Dose Ordered Sig/Dilip Route PRN Reason Start Time Stop Time Status Last Admin Furosemide (Lasix Injection) 20 mg BIDD IV 09/28/24 06:00 Aspirin 81 mg DAILY PO 09/28/24 10:00 09/28/24 11:09 Atorvastatin Calcium (Lipitor) 40 mg HS PO 09/27/24 22:00 09/27/24 22:25 Ondansetron HCl (Zofran) 4 mg Q4HP PRN IV NAUSEA / VOMITING 09/27/24 20:45 09/28/24 09:30 DC Acetaminophen (Tylenol Tablet) 650 mg Q6HP PRN PO PAIN SCALE 1-3 OR TEMP>100.4 09/27/24 20:45 Carvedilol (Coreg Tablet) 3.125 mg Q12HR PO 09/27/24 22:00 09/28/24 11:09 Review of Systems Constitutional: No symptom reported Ears, Nose, & Throat: No symptom reported Eyes: No symptom reported Neurological: No symptoms reported Pulmonary/Respiratory: Shortness of breath Cardiovascular: Bilateral lower extremity edema Gastrointestinal: No symptom reported Genitourinary: No symptom reported Musculoskeletal: No symptom reported Skin: No symptom reported Psychiatric: No symptom reported Endocrine: No symptom reported Hematologic/Lymphatic: No symptom reported Vital Signs Vital Signs Date Time Temp Pulse Resp B/P (MAP) Pulse Ox O2 Delivery O2 Flow Rate FiO2 09/28/24 13:15 102/75 09/28/24 13:00 98.3 101 17 98 98.3 09/28/24 08:00 Room Air* 0 21 Physical Exam General Appearance: Cooperative. Well-developed. Well-nourished. No acute distress. Pulmonary/Respiratory: Coarse sounds throughout all lung juarez Cardiovascular/Chest: Regular rate and rhythm. Peripheral Pulses: 2+ Radial (R). 2+ Radial (L). 2+ Pedal (R). 2+ Pedal (L) Abdominal Exam: Normal bowel sounds. Ankle Exam: +pitting edema Lower extremities: 1+ pitting edema Neuro/Mental Status: A/OX4, coherent. Thoughts/Psych: Normal thought pattern. Appropriate mood and affect. Good ju dgment and insight. Appearance: No acute distress. Skin Exam: Normal inspection. Normal color. Warm and dry. Labs/Diagnostic Data Labs Test 09/28/24 14:58 09/28/24 05:10 09/28/24 05:01 09/27/24 19:26 Range/Units Sodium Level 143 136-145 mmol/L Potassium Level 3.2 L 3.5-5.1 mmol/L Chloride Level 108 H 98-107 mmol/L Carbon Dioxide Level 26 20-31 mmol/L Anion Gap 9 5-15 Blood Urea Nitrogen 10 9-23 mg/dL Creatinine 0.80 0.550-1.02 mg/dL Glomerular Filtration Rate Calc 92 >90 mL/min BUN/Creatinine Ratio 12.5 10.0-20.0 Serum Glucose 89 74-106 mg/dL Calcium Level 8.9 8.7-10.4 mg/dL Hepatitis B Surface Antigen Negative Negative Hepatitis C Antibody Negative Negative Mean Platelet Volume 7.4 6.9-10.8 fL Neutrophils # (Auto) 1.6-8.6 10 ^3/uL Lymphocytes # (Auto) 0.4-5.4 10 ^3/uL Monocytes # (Auto) 0-1.3 10 ^3/uL Differential Total Cells Counted 100.0 100 Neutrophils % (Manual) 41 37.0-80.0 Band Neutrophils % (Manual) 0 Lymphocytes % (Manual) 52 H 10.0-50.0 Monocytes % (Manual) 3 0-12 Eosinophils % (Manual) 3 0-7 Basophils % (Manual) 0 0.0-2.0 Metamyelocytes % (manual) 0 Myelocytes % (Manual) 0 Promyelocytes % (Manual) 0 Blast Cells % (Manual) 0 Reactive Lymphocytes 1 Platelet Estimate Adequate Hypochromasia (manual) Slight Microcytosis Moderate Magnesium Level 2.0 1.6-2.6 mg/dL Total Bilirubin 0.5 0.2-1.0 mg/dL Direct Bilirubin 0.2 <0.3 mg/dL Aspartate Amino Transferase (AST) 40 13-40 U/L Alanine Aminotransferase (ALT) 28 7-40 U/L Alkaline Phosphatase 108 46-116 U/L Total Protein 8.0 5.7-8.2 g/dL Albumin 3.0 L 3.2-4.8 g/dL Troponin I High Sensitivity 24 </=34 ng/L Test 09/27/24 18:26 09/27/24 18:14 Range/Units Eosinophils # (Auto) 0.1 0-0.8 10 ^3/uL Basophils # (Auto) 0 0-0.2 10 ^3/uL B-Type Natriuretic Peptide 1028.34 0-100 pg/mL Urine Color Colorless Yellow Urine Clarity Clear Clear Urine pH 6.0 5.0-9.0 Urine Specific [place] 1.008 1.001-1.035 Urine Protein Negative Negative Urine Ketones Negative Negative Urine Blood Negative Negative /uL Urine Nitrite Negative Negative Urine Bilirubin Negative Negative Urine Urobilinogen Normal Negative mg/dL Urine Leukocyte Esterase Trace Negative /uL Urine RBC 1 0 - 4 /hpf Urine Microscopic WBC 2 0-5 /HPF Urine Squamous Epithelial Cells Few <5 /hpf Urine Bacteria Few H None Seen /hpf Urine Glucose Normal Normal mg/dL Urine Opiates Screen Neg NEGATIVE Urine Fentanyl Screen Neg NEGATIVE Urine Barbiturates Screen Neg NEGATIVE Urine Phencyclidine Screen Neg NEGATIVE Urine Amphetamines Screen Pos NEGATIVE Urine Benzodiazepines Screen Neg NEGATIVE Urine Cocaine Screen Neg NEGATIVE Urine Cannabinoids Screen Neg NEGATIVE Assessment Acute on chronic decompensated HFrEF, NYHA class III Pleural effusion, right-sided Hypokalemia History of AIDS/HIV Methamphetamine use Tobacco use Medical noncompliance Plan/Recommendation We will continue with the following plan/recommendations (Dr. Stringer): * Transthoracic echocardiogram to evaluate cardiac function * Initiate guideline directed medical therapy for CHF as tolerated by BP * Add SGLT2i (Jardiance) if BP remains stable * Strict intake and output, daily weights, maintain fluid restriction * Preload and afterload reduction * Close Cardiac surveillance * Risk factor modifications, counseled * Cessation of amphetamine use After discussion with the patient, patient is unsure if she ever underwent coronary angiogram for ischemic workup. Given the patient's medical noncompliance and current amphetamine use, patient not an ideal candidate at this time. The patient may benefit from eventual ischemic workup. In the meantime, we will continue with medical management. Thank you for allowing us to care for this patient. Please call with any questions or concerns. Critical care time spent: 44 minutes This medical document was created using an electronic medical record system with voice recognition software and computerized dictation system. Although this document has been carefully reviewed, there might still be some phonetic and typographical errors. Occasional wrong-word or ``sound-alike substitutions may have occurred due to the inherent limitations of voice recognition software. These areas are purely typographical due to imperfections of the software programs and do not reflect any compromise in the patient's medical care. Please read the chart carefully and recognize, using context, where these substitutions have occurred. Plan discussed with: Patient NYHA Physical activity limitations: Class3(Marked) ordinary (activity causes symtoms) Date of Service: Sep 28, 2024 Billing Provider: LAURA CHAVEZ Cardiology Common Codes: 26710-WVBDDMX INP/OBS CARE (High) Cardiology Consultation Codes: [id number] CONSULT <45MIN LAURA CHAVEZ Sep 28, 2024 16:08
[2024-09-28 17:12] LABS: Triglycerides 81 mg/dL (< 150)
[2024-09-28 17:14] LABS: Cholesterol 89 mg/dL (< 200)
[2024-09-28 17:32] LABS: HDL Cholesterol 24 mg/dL (40-59)
[2024-09-28] MEDS: SACUBITRIL-VALSARTAN 24mg/26mg TAB PO SCH (21:18)
[2024-09-29] VITALS (7 sets, daily range): BP systolic 97–106; BP diastolic 62–85; PULSE 89–102; RESP 20; TEMP 97.4–98.1; O2SAT 96–99
[2024-09-29] MEDS: ACETAMINOPHEN 325 MG TAB PO PRN (02:01)
[2024-09-29 07:14] LABS: Hematocrit 29.6 % (36.0-46.0); Hemoglobin 9.5 g/dL (12.2-16.2); Mean Corpuscular Hemoglobin 23.8 pg (28.0-32.0); Mean Corpuscular Volume 74.3 fL (80.0-100.0); Nucleated Red Blood Cells % 0.2 %
[2024-09-29 07:21] LABS: Anion Gap 8 (5-15); Carbon Dioxide 27 mmol/L (20-31); Chloride 106 mmol/L (98-107); Sodium 141 mmol/L (136-145)
[2024-09-29 07:27] LABS: BUN/Creatinine Ratio 13.1 (10.0-20.0); Blood Urea Nitrogen 13 mg/dL (9-23)
[2024-09-29 07:28] LABS: Calcium 8.1 mg/dL (8.7-10.4); Glucose 125 mg/dL (74-106); Potassium 3.3 mmol/L (3.5-5.1)
[2024-09-29] MEDS: POTASSIUM CHL 20 Meq TABLET PO ONE (08:45)
[2024-09-29] MEDS: SPIRONOLACTONE 25 MG TAB PO SCH (09:26)
--- NOTE | 2024-09-29 15:03 | DVHSR ---
APPROVED REPORT EXAM: Two-dimensional and M-mode echocardiogram with Doppler and color Doppler. Blood Pressure: 93/65 mmHg INDICATION Heart Failure RISK FACTORS Height: 5'6", Weight: 132 DIMENSIONS LVDd6.0 (3.8-5.7cm)LA (2D)4.4 (1.9-4.0cm)Aortic Root3.0 (2.0-3.7cm) LVDs5.5 (2.5-4.0cm)LA (MM) (1.9-4.0cm)Aortic Cusp Exc1.8 (1.5-2.0cm) EF (%) 18.0 (55-70%)Rt. Atrium5.8 (1.9-4.0cm)Asc. Aorta2.7 cm IVSd0.7 (0.7-1.1cm)RV (D)4.7 (1.8-2.4cm) PWd0.7 (0.7-1.1cm) Mitral Valve MitralMitral Stenosis E wave1.15m/sMV Mean GR.mmHg A wave0.73m/sMV Peak GR.mmHg E/A ratio1.62D MVAcm2 DECEL [id number] 1/2 Timems Aortic Valve Aortic ValveAortic Stenosis V10.72m/Adenike Mean GR.3mmHg V21.07m/Adenike Peak GR.5mmHg LVOT Diameter2.1 (1.8-2.4cm)Doppler AVA2.33cm2 Pulmonic Valve V20.79m/s Tricuspid Valve TR Velocity2.75m/s [id number] Conclusion REMARKABLY DILATED ALL CARDIAC CHAMBERS SEVERE GLOBAL LV AND RV HYPOKINESIS LV EF IS ONLY 18% IT IS END STAGE DILATED CARDIOMYOPATHY NORMAL VALVES SEVERE MR NO EFFUSION
--- NOTE | 2024-09-29 15:28 | DVHPNRES ---
Progress Note Date Seen: Sep 29, 2024 Resident Creating Document: CHRISTOPHER BOWMAN RESIDENT Medical Necessity Reason Pt with a Central, PICC or Fol: No Subjective Review of Systems Patient is a 44 year old female with prior medical history of CHF, AIDS, and methamphetamine use who presented to the ED with chief complaint of bilateral leg swelling. Per the patient, she began to notice the bilateral leg swelling beginning in her feet after her discharge from [facility] on September 13, where she was admitted for pneumonia. She states that the swelling progressed and extended to her thighs, associated with pain when ambulating, and shortness of breath when walking from her car to her room, which prompted her to seek medical care. She denied chest pain, shortness of breath at rest, palpitations, fevers, chills, nausea, vomiting, and other symptoms. On evaluation in the ED, 12 Lead EKG shows sinus tachycardia, initial labs show CBC and CMP within normal range, troponins negative, BNP 1028.34, and UDS positive for amphetamines use. Chest Xray shows cardiomegaly, pulmonary vascular congestion, and right pleural effusion. She was started on IV Lasix and was admitted for further work up and monitoring. Per the patient, in May she had an Echocardiogram done at [facility] which showed an EF of 15%, she was discharged with PO Lasix, however the patient was noncompliant and hadn't established care with a shaker out. Patient seen at bedside. Patient is AOx4, states she feels well, refers some pain in her leg, but is able to ambulate with no difficulty. Additionally, complains of intermittent wet cough. She denies chest pain, shortness of breath, palpitations, fever, nausea and vomiting. No adverse events over night. blood pressure has improved and vitals have remained stable overnight. Follow up labs indicative of microcytic anemia, hepatitis panel negative. Patient was slightly hypokalemic, PO potassium was ordered however patient refused. She was educated on the importance of adherence, she still refused. Preliminary blood cultures show no growth after 24 hours. He was seen by echocardiogram shows remarkably dilated all cardiac chambers, severe global LV and RV hypokinesis, LVEF 18%, end stage dilated cardiomyopathy, severe MR. Cardiology who recommended initiation of GDM T, Jardiance will be started once her blood pressure permits. Objective vital signs Vital Sign Date Time Temp Pulse Resp B/P (MAP) Pulse Ox O2 Delivery O2 Flow Rate FiO2 09/29/24 13:00 97.9 102 20 100/62 (75) 98 97.9 09/29/24 08:00 Room Air* 0 21 Total Intake and Output 09/28/24 09/28/24 09/29/24 15:00 23:00 07:00 Intake Total 650 ml 600 ml Output Total 2200 ml 1200 ml Balance -1550 ml -600 ml medications Current Medications Medications Dose Ordered Sig/Dilip Route Start Time Stop Time Status Last Admin Dose Admin Furosemide 20 mg BIDD IV 09/28/24 06:00 Aspirin 81 mg DAILY PO 09/28/24 10:00 09/29/24 09:22 81 MG Atorvastatin Calcium 40 mg HS PO 09/27/24 22:00 09/27/24 22:25 40 MG Acetaminophen 650 mg Q6HP PRN PO 09/27/24 20:45 09/29/24 02:01 650 MG Carvedilol 3.125 mg Q12HR PO 09/27/24 22:00 09/29/24 09:22 3.125 MG Spironolactone 25 mg DAILY PO 09/29/24 10:00 Sacubitril/ Valsartan 0.5 tab BID PO 09/28/24 22:00 09/29/24 09:23 0.5 TAB laboratory and microbiology Laboratory Tests 09/29/24 06:00 Test 09/29/24 06:00 Range/Units Serum Glucose 125 H 74-106 mg/dL Microbiology Date/Time Source Procedure Growth Status 09/28/24 11:37 Blood Blood Culture - Preliminary NO GROWTH AFTER 24 HOURS OF INCUBATION. Resulted 09/27/24 00:00 Voided Urine Urine Culture - Preliminary Resulted Problem List/Assessment/Plan Problem List/Assessment/Plan Assessment and Plan: Acute on Chronic HFrEF exacerbation -Furosemide 20 mg IV daily -> held by nursing due low blood pressure -Carvedilol 3.125 mg q12 hr PO -Spirinolactone 25 mg PO daily -Entresto 0.5 mg PO BID -Echocardiogram: Remarkably dilated all cardiac chambers, severe global LV and RV hypokinesis, LVEF is only 18%, it is end stage dilated cardiomyopathy, normal valves, severe MR, no effusion. -Cardiology: Initiate GDMT as tolerated by BP, will start Jardiance if BP remains stable. Patient is not a candidate for angiogram at this time due to noncompliance and amphetamine use. 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 Hypokalemia, 3.3 -Potassium 40 mEq PO once, patient refused medication Microcytic anemia History of HIV/AIDS -CD4/CD8 ratio profile pending Methamphetamine Use -UDS: + amphetamine -Counseled on cessation for over 15 minutes Medical noncompliance DVT prophylaxis: Ambulatory Case discussed with Dr. Tucker. Goals of care discussed with the patient for over 30 minutes. States she understands and agrees. Plan discussed with: Patient Date of Service: Sep 29, 2024 Billing Provider: LUDIVINA TUCKER MD Common Visit Codes: [id number] INP/OBS CARE(HIGH) [place] RESIDENT Sep 29, 2024 15:28 LUDIVINA TUCKER MD Sep 29, 2024 21:03
--- NOTE | 2024-09-29 23:37 | ECG ---
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
[2024-09-30] VITALS (7 sets, daily range): BP systolic 101–112; BP diastolic 70–79; PULSE 81–95; RESP 16–20; TEMP 36.5; O2SAT 96–100
[2024-09-30 05:07] LABS: Hematocrit 32.1 % (34.0-46.6); Hemoglobin 9.8 g/dL (11.1-15.9); MCH 23.5 pg (26.6-33.0); MCHC 30.5 g/dL (31.5-35.7); MCV 77 fL (79-97); RBC 4.17 x10E6/uL (3.77-5.28); RDW 17.6 % (11.7-15.4); WBC 4.4 x10E3/uL (3.4-10.8)
[2024-09-30 07:30] LABS: Hematocrit 32.8 % (36.0-46.0); Hemoglobin 10.4 g/dL (12.2-16.2); Mean Corpuscular Hemoglobin 23.5 pg (28.0-32.0); Mean Corpuscular Volume 74.1 fL (80.0-100.0); Nucleated Red Blood Cells % 0.2 %
[2024-09-30 07:41] LABS: Chloride 107 mmol/L (98-107); Sodium 143 mmol/L (136-145)
[2024-09-30 07:42] LABS: Anion Gap 9 (5-15); Carbon Dioxide 27 mmol/L (20-31); Potassium 3.5 mmol/L (3.5-5.1)
[2024-09-30 07:43] LABS: Calcium 8.3 mg/dL (8.7-10.4)
[2024-09-30 07:47] LABS: BUN/Creatinine Ratio 12.9 (10.0-20.0); Blood Urea Nitrogen 11 mg/dL (9-23); Glucose 104 mg/dL (74-106)
[2024-09-30] MEDS: POTASSIUM CHL 20 Meq TABLET PO ONE (11:45)
[2024-09-30 15:06] LABS: CD4/CD8 Ratio 0.08 (0.92-3.72)
--- NOTE | 2024-09-30 15:13 | DVHDSRES ---
Discharge Summary Date of Admission Resident Creating Document: CHRISTOPHER BOWMAN RESIDENT Sep 27, 2024 at 20:24 Date of Discharge: Sep 30, 2024 Admitting Diagnosis Bilateral leg swelling Labs/Diagnostic Data: Laboratory Results Test 09/30/24 07:02 09/29/24 15:41 09/28/24 17:30 09/28/24 05:10 White Blood Count 5.1 10^3/uL (4.4-10.8) Red Blood Count 4.42 10^6/uL (4.0-5.20) Hemoglobin 10.4 g/dL (12.2-16.2) Hematocrit 32.8 % (36.0-46.0) Mean Corpuscular Volume 74.1 fL (80.0-100.0) Mean Corpuscular Hemoglobin 23.5 pg (28.0-32.0) Mean Corpuscular Hemoglobin Concent 31.7 g/dL (32.0-36.0) Red Cell Distribution Width 19.8 % (11.8-14.3) Platelet Count 342 10^3/uL (140-450) Mean Platelet Volume 7.0 fL (6.9-10.8) Neutrophils (%) (Auto) 41.4 % (37.0-80.0) Lymphocytes (%) (Auto) 45.8 % (10.0-50.0) Monocytes (%) (Auto) 9.1 % (0.0-12.0) Eosinophils (%) (Auto) 3.0 % (0.0-7.0) Basophils (%) (Auto) 0.7 % (0.0-2.0) Neutrophils # (Auto) 2.1 10 ^3/uL (1.6-8.6) Lymphocytes # (Auto) 2.4 10 ^3/uL (0.4-5.4) Monocytes # (Auto) 0.5 10 ^3/uL (0-1.3) Eosinophils # (Auto) 0.2 10 ^3/uL (0-0.8) Basophils # (Auto) 0 10 ^3/uL (0-0.2) Nucleated Red Blood Cells 0.2 % Sodium Level 143 mmol/L (136-145) Potassium Level 3.5 mmol/L (3.5-5.1) Chloride Level 107 mmol/L (98-107) Carbon Dioxide Level 27 mmol/L (20-31) Anion Gap 9 (5-15) Blood Urea Nitrogen 11 mg/dL (9-23) Creatinine 0.85 mg/dL (0.550-1.02) Glomerular Filtration Rate Calc 86 mL/min (>90) BUN/Creatinine Ratio 12.9 (10.0-20.0) Serum Glucose 104 mg/dL (74-106) Calcium Level 8.3 mg/dL (8.7-10.4) Absolute Neutrophils (auto) 1.4 x10E3/uL (1.4-7.0) Absolute Lymphocytes (auto) 2.4 x10E3/uL (0.7-3.1) Absolute Monocytes (auto) 0.4 x10E3/uL (0.1-0.9) Absolute Eosinophils (auto) 0.1 x10E3/uL (0.0-0.4) Absolute Basophils (auto) 0.1 x10E3/uL (0.0-0.2) Immature Granulocytes % 0 % (Not Estab.) Immature Granulocytes # 0 x10E3/uL (0.0-0.1) Immature Blood Cells (.) Hematology Comments (.) Percent CD4 Cells 6.7 % (30.8-58.5) Absolute CD4 Count 161 /uL (359-1519) T-Lymphocyte CD4/CD8 Ratio 0.08 (0.92-3.72) Percent CD8 Cells 88.0 % (12.0-35.5) Absolute CD8 Count 2112 /uL (109-897) Hemoglobin A1c 6.5 % A1C (<5.7) Hepatitis B Surface Antigen Negative (Negative) Hepatitis C Antibody Negative (Negative) Test 09/28/24 05:01 09/27/24 19:26 09/27/24 18:26 09/27/24 18:14 Differential Total Cells Counted 100.0 (100) Neutrophils % (Manual) 41 (37.0-80.0) Band Neutrophils % (Manual) 0 Lymphocytes % (Manual) 52 (10.0-50.0) Monocytes % (Manual) 3 (0-12) Eosinophils % (Manual) 3 (0-7) Basophils % (Manual) 0 (0.0-2.0) Metamyelocytes % (manual) 0 Myelocytes % (Manual) 0 Promyelocytes % (Manual) 0 Blast Cells % (Manual) 0 Reactive Lymphocytes 1 Platelet Estimate Adequate Hypochromasia (manual) Slight Microcytosis Moderate Magnesium Level 2.0 mg/dL (1.6-2.6) Total Bilirubin 0.5 mg/dL (0.2-1.0) Direct Bilirubin 0.2 mg/dL (<0.3) Aspartate Amino Transferase (AST) 40 U/L (13-40) Alanine Aminotransferase (ALT) 28 U/L (7-40) Alkaline Phosphatase 108 U/L (46-116) Total Protein 8.0 g/dL (5.7-8.2) Albumin 3.0 g/dL (3.2-4.8) Triglycerides Level 81 mg/dL (< 150) Cholesterol Level 89 mg/dL (< 200) LDL Cholesterol 58 mg/dL (< 100) HDL Cholesterol 24 mg/dL (40-59) Thyroid Stimulating Hormone (TSH) 0.68 uIU/mL (0.55-4.78) Troponin I High Sensitivity 24 ng/L (</=34) B-Type Natriuretic Peptide 1028.34 pg/mL (0-100) Urine Color Colorless (Yellow) Urine Clarity Clear (Clear) Urine pH 6.0 (5.0-9.0) Urine Specific [place] 1.008 (1.001-1.035) Urine Protein Negative (Negative) Urine Ketones Negative (Negative) Urine Blood Negative /uL (Negative) Urine Nitrite Negative (Negative) Urine Bilirubin Negative (Negative) Urine Urobilinogen Normal mg/dL (Negative) Urine Leukocyte Esterase Trace /uL (Negative) Urine RBC 1 /hpf (0 - 4) Urine Microscopic WBC 2 /HPF (0-5) Urine Squamous Epithelial Cells Few /hpf (<5) Urine Bacteria Few /hpf (None Seen) Urine Glucose Normal mg/dL (Normal) Urine Opiates Screen Neg (NEGATIVE) Urine Fentanyl Screen Neg (NEGATIVE) Urine Barbiturates Screen Neg (NEGATIVE) Urine Phencyclidine Screen Neg (NEGATIVE) Urine Amphetamines Screen Pos (NEGATIVE) Urine Benzodiazepines Screen Neg (NEGATIVE) Urine Cocaine Screen Neg (NEGATIVE) Urine Cannabinoids Screen Neg (NEGATIVE) Other Laboratory Tests 09/30/24 07:02 Brief Hx & Hospital Course: Patient is a 44 year old female with prior medical history of CHF, AIDS, and methamphetamine use who presented to the ED with chief complaint of bilateral leg swelling. Per the patient, she began to notice the bilateral leg swelling beginning in her feet after her discharge from [place] on September 13, where she was admitted for pneumonia. She states that the swelling progressed and extended to her thighs, associated with pain when ambulating, and shortness of breath when walking from her car to her room, which prompted her to seek medical care. She denied chest pain, shortness of breath at rest, palpitations, fevers, chills, nausea, vomiting, and other symptoms. On evaluation in the ED, 12 Lead EKG shows sinus tachycardia, initial labs show CBC and CMP within normal range, troponins negative, BNP 1028.34, and UDS positive for amphetamines use. Chest Xray shows cardiomegaly, pulmonary vascular congestion, and right pleural effusion. She was started on IV Lasix and was admitted for further work up and monitoring. Per the patient, in May she had an Echocardiogram done at [facility] which showed an EF of 15%, she was discharged with PO Lasix, however the patient was noncompliant and hadn't established care with a caster operator. Patient seen at bedside. Patient is AOx4, states she feels well, refers some pain in her leg, but is able to ambulate with no difficulty. Additionally, complains of intermittent wet cough. She denies chest pain, shortness of breath, palpitations, fever, nausea and vomiting. No adverse events over night. blood pressure has improved and vitals have remained stable overnight. Follow up labs indicative of microcytic anemia, hepatitis panel negative. Patient was slightly hypokalemic, PO potassium was ordered however patient refused. She was educated on the importance of adherence, she still refused. Preliminary blood cultures show no growth after 24 hours. He was seen by echocardiogram shows remarkably dilated all cardiac chambers, severe global LV and RV hypokinesis, LVEF 18%, end stage dilated cardiomyopathy, severe MR. Cardiology who recommended initiation of GDM T, Jardiance will be started once her blood pressure permits. On evaluation today, she states she is well, pain is manageable. Her vitals have remained stable for discharge home, follow up visit in discharge clinic within 1 week. All medications and recommendations were thoroughly explained and the patient states he understands and agrees. Detailed discussion held with patient at bedside were all questions were answered and concerns were addressed. Electrocardiogram shows Sinus rhythm, Borderline T abnormalities, lateral leads, Prolonged QT interval. Operations or Procedures EXAM: XY CHEST PORTABLE CLINICAL HISTORY: sob TECHNIQUE: Single AP view of the chest WID: COMPARISON: None FINDINGS: Lines and tubes: None Chest: Cardiomegaly and pulmonary vascular congestion. Small right pleural effusion. No pneumothorax or left pleural effusion. The osseous structures are grossly intact. IMPRESSION: Cardiomegaly, pulmonary vascular congestion, and right pleural effusion. --------- PROCEDURE(s): EKG - ELECTROCARDIGRAM ORDER NUMBER(s): [id number], ACCESSION NUMBER(s): [id number] [facility] Test Date: 2024-09-29 Test Time: 23:33:01 Pat Name: LILLIAN RAMIREZ Department: Room: 0244A 3 Gender: F Foot Gatherer: : 1980 Requested By: CHRISTOPHER BOWMAN Order Number: [id number] Reading MD: Measurements Intervals [place] Rate: 98 P: 50 MO: 127 QRS: 46 QRSD: 71 T: 27 QT: 415 QTc: 530 Interpretive Statements Sinus rhythm Borderline T abnormalities, lateral leads Prolonged QT interval Please click the below link to view image of tracing. DICTATED BY: DICTATED DATE/TIME:09/29/24 2333 --------- EXAM: Two-dimensional and M-mode echocardiogram with Doppler and color Doppler. Blood Pressure: 93/65 mmHg INDICATION Heart Failure RISK FACTORS Height: 5'6", Weight: 132 DIMENSIONS LVDd 6.0 (3.8-5.7cm) LA (2D) 4.4 (1.9-4.0cm) Aortic Root 3.0 (2.0- 3.7cm) LVDs 5.5 (2.5-4.0cm) LA (MM) (1.9-4.0cm) Aortic Cusp Exc 1.8 (1.5- 2.0cm) EF (%) 18.0 (55-70%) Rt. Atrium 5.8 (1.9-4.0cm) Asc. Aorta 2.7 cm IVSd 0.7 (0.7-1.1cm) RV (D) 4.7 (1.8-2.4cm) PWd 0.7 (0.7-1.1cm) Mitral Valve Mitral Mitral Stenosis E wave 1.15m/s MV Mean GR. mmHg A wave 0.73m/s MV Peak GR. mmHg E/A ratio 1.6 2D MVA cm2 DECEL Time 115ms PRESS 1/2 Time ms Aortic Valve Aortic Valve Aortic Stenosis V1 0.72m/s AO Mean GR. 3mmHg V2 1.07m/s AO Peak GR. 5mmHg LVOT Diameter 2.1 (1.8-2.4cm) Doppler BRANDON 2.33cm2 Pulmonic Valve V2 0.79m/s Tricuspid Valve TR Velocity 2.75m/s RVSP 33mmHg Conclusion REMARKABLY DILATED ALL CARDIAC CHAMBERS SEVERE GLOBAL LV AND RV HYPOKINESIS LV EF IS ONLY 18% IT IS END STAGE DILATED CARDIOMYOPATHY NORMAL VALVES SEVERE MR NO EFFUSION SIGNED BY: TAMMI SIMS MD SIGNED DATE/TIME: 09/29/24 1503 --------- PROCEDURE(s): EKG - ELECTROCARDIGRAM ORDER NUMBER(s): [id number], ACCESSION NUMBER(s): [id number] Date: 2024-09-27 Test Time: 18:20:07 Pat Name: LILLIAN RAMIREZ Department: ED Room: Gender: F Foot Gatherer: BRIDGETT : 1980 Requested By: MIKAL POST Order Number: [id number] Reading MD: Measurements Intervals [place] Rate: 106 P: 60 MO: 134 QRS: 79 QRSD: 67 T: 5 QT: 392 QTc: 521 Interpretive Statements Sinus tachycardia Borderline low voltage, extremity leads Prolonged QT interval Please click the below link to view image of tracing. DICTATED BY: DICTATED DATE/TIME:09/27/24 1820 - -------- RUN DATE: 09/30/24 PAGE 1 RUN TIME: 1356 [facility] [address] [place] [address] Belia Carlisle M.D., Laboratory [employer] - PATIENT: LILLIAN RAMIREZ ACCT: [id number] LOC: [facility] U: [id number] AGE/SX: 44/F ROOM: 0244ADS RE09/27/[address]: SB LUJAN : 1980 BED: 3 DIS: STATUS: ADM IN TLOC: - SPEC #: [id number] MICA: 09/28/24 STATUS: RES REQ #: [id number] RECD: 09/28/24 [facility] DR: DAINA MERINO SOURCE: BLOOD ENTR: 09/28/[address]: PRERNA KAN AGACNP [facility]: ORDERED: BCULT - Procedure Result - Blood Culture Preliminary NO GROWTH AFTER 48 HOURS OF INCUBATION. NO GROWTH AFTER 48 HOURS OF INCUBATION. RUN DATE: 09/30/24 PAGE 1 RUN TIME: 4170 [facility] [address] [place], [place] [address] Belia Carlisle M.D., Laboratory [employer] - PATIENT: LILLIAN RAMIREZ ACCT: [id number] LOC: [facility] U: [id number] AGE/SX: 44/F ROOM: 0244ADS RE09/27/[address]: SB LUJAN : 1980 BED: 3 DIS: STATUS: ADM IN TLOC: - SPEC #: [id number] MICA: 09/28/24-1109 STATUS: RES REQ #: [id number] RECD: 09/28/24-[address]: DAINA MERINO [facility] SOURCE: BLOOD ENTR: 09/28/[address]: PRERNA KAN AGACNP [facility]: ORDERED: BCULT - Procedure Result - Blood Culture Preliminary NO GROWTH AFTER 48 HOURS OF INCUBATION. NO GROWTH AFTER 48 HOURS OF INCUBATION. --------- RUN DATE: 09/30/24 PAGE 1 RUN TIME: 5076 [facility] [address] [address] [place] [address] Belia Carlisle M.D., Laboratory [employer] - PATIENT: LILLIAN RAMIREZ ACCT: [id number] LOC: [facility] U: [id number] AGE/SX: 44/F ROOM: 0244ADS RE09/27/[address]: SB LUJAN : 1980 BED: 3 DIS: STATUS: ADM IN TLOC: - SPEC #: [id number] MICA: 09/27/24-0000 STATUS: COMP REQ #: [id number] RECD: 09/28/24-[address]: DAINA MERINO RESIDENT SOURCE: VOID ENTR: 09/28/[address] [facility] DR: PRERNA KAN AGACNP [facility]: ORDERED: URC - Procedure Result - Urine Bacterial Culture Final Organism 1 Escherichia coli - ESBL QUANTITATION APPROXIMATELY 80,000 CFU/ML NOTE: 1. Escherichia coli - ESBL This organism is an Extended Spectrum Beta Lactamase (ESBL) event producer exhibiting unusual resistance. Consultation with an infectious disease practitioner and/or pharmacist is recommended. Called results to: BABS GARRETT RN at 09/30/24,1352 by [employer]. Verbal readback confirmed. Left message to [facility] - Infection Control Department (ext. [phone]) at 1352 on 09/30/24 by [employer]. 2. Approximately 20,000 CFU/mL Mixed Gram Positive [place]. Resembles urogenital contaminants. CONTINUED ON NEXT PAGE RUN DATE: 09/30/24 PAGE 2 RUN TIME: 1356 [facility] [address] [place], [place] [address] Belia Carlisle M.D., Laboratory [employer] - SPEC: [id number] PATIENT: LILLIAN RAMIREZ [id number] (Continued) - - Procedure Result - Urine Bacterial Culture Final (continued) EC ESBL M.I.C. RX --------- --- Ampicillin >16 R Ampicillin/Sulbactam 16/8 I Aztreonam >16 R Cefepime >16 R Ceftazidime >16 R Ceftriaxone >2 R Ciprofloxacin >2 R Ertapenem <=0.5 S Gentamicin >8 R Levofloxacin >4 R Meropenem <=1 S Nitrofurantoin <=32 S Tobramycin >8 R Trimethoprim/Sulfamethoxazole >2/38 R Piperacillin/Tazobactam <=8 S *SERAFIN value in ug/ml Condition at Discharge: Stable (RN) Final Diagnosis/Problems List # Acute on Chronic HFrEF exacerbation # End Stage Dilated Cardiomyopathy, likely drug induced # Right Pleural Effusion # Hypokalemia, 3.3 # Microcytic anemia # History of HIV/AIDS # Methamphetamine Use Discharge Disposition: Home Discharge Instruct/Medications Diet: Cardiac 2g Na,low cholest Activity: No Restrictions, As Tolerated Follow Up/Referral: Follow up with d/c clinic within 1 week. Follow up with PCP within 1 week. Medications: -as per EMR -continue home medications Scheduled Aspirin (Aspirin Low Dose), 81 MG PO DAILY Atorvastatin Calcium (Atorvastatin Calcium), 40 MG PO HS Carvedilol (Coreg), 3.125 MG PO Q12HR Furosemide (Lasix), 1 TAB PO DAILY Nitrofurantoin (Nitrofurantoin), 1 CAP PO BID Sacubitril-Valsartan (Entresto 24-26 mg), 0.5 TAB PO BID Spironolactone (Aldactone), 25 MG PO DAILY Discharge Statement: "Patient was advised to return to the ER or call 911 if any headaches, dizziness, shortness of breath, chest pain, abdominal pain, bleeding, fevers, or worsening of medical condition. Patient was counseled about treatment plan, medications, possible side effects, patientverbalized understanding. All questions were answered to the best of my ability. This discharge took greater then 30 minutes in planning, reviewing documentation, counseling the patient, and discussing with other team members." ASSESSMENT ASSESSMENT Assessment # Acute on Chronic HFrEF exacerbation # End Stage Dilated Cardiomyopathy, likely drug induced # Right Pleural Effusion # Hypokalemia, 3.3 # Microcytic anemia # History of HIV/AIDS # Methamphetamine Use Date of Service: Sep 30, 2024 Billing Provider: LUDIVINA PARRA MD Common Visit Codes: 61137-AXL/OBS DISCH DAY >30min ELVA ZEPEDA RESIDENT Sep 30, 2024 15:13 LUDIVINA PARRA MD Sep 30, 2024 21:55
[2024-09-30] MEDS ORDERED: NITR-52 PO (15:32)
[2024-09-30] MEDS ORDERED: FURO1TAB33 PO (15:33)
[2024-09-30] MEDS ORDERED: SACU1TAB PO (15:33)
[2024-09-30] MEDS ORDERED: ASPI-325 PO (15:33)
[2024-09-30] MEDS ORDERED: SPIR25TA PO (15:33)
[2024-09-30] MEDS ORDERED: CARV-214 PO (15:33)
[2024-09-30] MEDS ORDERED: ATOR20TA50 PO (15:33)
== END 2024-09-30 16:30 | disposition home or self-care (01) | DRG 194 ==
LOC: EDUNIT# 18:11 → ER 18:11 → EDBD 18:11 → OVERFLOW 20:24 → EAST 23:47
PROVIDERS: ADMIT Internal Medicine Geriatric Medicine; ATTEND Internal Medicine Geriatric Medicine
DX: I50.23 Acute on chronic systolic (congestive) heart failure (principal); I42.0 Dilated cardiomyopathy; E88.09 Other disorders of plasma-protein metabolism, not elsewhere classified; E87.6 Hypokalemia; F15.90 Other stimulant use, unspecified, uncomplicated; F41.9 Anxiety disorder, unspecified; F17.210 Nicotine dependence, cigarettes, uncomplicated; D64.9 Anemia, unspecified; F20.9 Schizophrenia, unspecified; Z82.49 Family history of ischemic heart disease and other diseases of the circulatory system; Z83.3 Family history of diabetes mellitus; Z87.11 Personal history of peptic ulcer disease; Z88.6 Allergy status to analgesic agent; Z91.199 Patient's noncompliance with other medical treatment and regimen due to unspecified reason
CPT/HCPCS: 36415; 71045; 80048; 80061; 80076; 80307; 81001; 83036; 83735; 83880; 84443; 84484; 85007; 85025; 85027; 86360; 86803; 87040; 87070; 87086; 87088; 87186; 87205; 87340; 93005; 93306; 96374; 96376; 99291; G0378

== ENCOUNTER 2024-10-16 18:23 | Inpatient (IN) | payer MEDICAID ==
[~2024-10-16] VITALS: Ht 177.8 cm; Wt 49.7 kg
[~2024-10-16 18:23] MED LIST changes: -AMOX; +ASPI-325 PO; +ATOR20TA50 PO; +CARV-214 PO; +FURO1TAB33 PO; +NITR-52 PO; +SACU1TAB PO; +SPIR25TA PO; -SULFA
--- NOTE | 2024-10-16 18:56 | ED.PDOC ---
SOB-HPI HPI Comments 44 year old female presents to the ED with a chief complaint of shortness of breath onset 1 day. Patient states she began experiencing shortness of breath yesterday as well as chest pain, worsens with ambulation. Patient states she was recently admitted at [facility] due to CHF exacerbation, was discharged about 4 days ago. 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 She has not been able to take medication prescribed to her. Denies fever, chills, abdominal pain, nausea, vomiting, diarrhea, headache, dizziness, numbness/tingling. No other symptoms or modifying factors present at this time. Chief Complaint: Shortness of Breath Time Seen by MD: 18:40 Primary Care Provider: N/A Reviewed notes: Medications, Allergies Information Source: Patient Mode of Arrival: Ambulatory Severity: Moderate Timing: Days Duration: Since onset Context: At Rest PE Risk Factors: None History of: CHF Prehospital treatment: None Modifying Factors: Nothing Associated Signs and Symptoms: Chest Pain Quality: Sharp Radiation: No Radiation Location: Chest (L) Past Medical History PAST MEDICAL HISTORY: Anxiety, CHF, HIV, PUD, Schizophrenia Surgical History: Denies all surgeries DYNAMITE RECLAIMER History: No Pertinent DYNAMITE RECLAIMER History Family History Family History: No family hx of Cancer, No family hx of DM Social History Smoker: Non-Smoker Alcohol: Denies ETOH Use Drugs: Methamphetamine Lives In: Home Constitutional: denies: chills, diaphoresis, fatigue, fever, malaise, sweats, weakness, others EENTM: denies: blurred vision, double vision, ear bleeding, ear discharge, ear drainage, ear pain, ear ringing, eye pain, eye redness, hearing loss, mouth pain, mouth swelling, nasal discharge, nose bleeding, nose congestion, nose pain, photophobia, tearing, throat pain, throat swelling, voice changes, others Respiratory: reports: shortness of breath; denies: cough, hemoptysis, orthopnea, SOB at rest, SOB with excertion, stridor, wheezing, others Cardiovascular: reports: chest pain; denies: dizzy spells, diaphoresis, Dyspnea on exertion, edema, irregular heart beat, left arm pain, lightheadedness, palpi tations, PND, syncope, others Gastrointestinal: denies: abdomen distended, abdominal pain, blood streaked bowels, constipated, diarrhea, dysphagia, difficulty swallowing, hematemesis, melena, nausea, poor appetite, poor fluid intake, rectal bleeding, rectal pain, vomiting, others Genitourinary: denies: abnormal vagina bleeding, burning, dyspareunia, dysuria, flank pain, frequency, hematuria, incontinence, pain, , vagina discharge, urgency, others Neurological: denies: dizziness, fainting, headache, left sided numbness, left sided weakness, numbness, paresthesia, pre-existing deficit, right sided numbness, right sided weakness, seizure, speech problems, tingling, tremors, weakness, others Musculoskeletal: denies: back pain, gout, joint pain, joint swelling, muscle pain, muscle stiffness, neck pain, others Integumetry: denies: bruises, change in color, change in hair/nails, dryness, laceration, lesions, lumps, rash, wounds, others Allergic/Immunocompromised: denies: Difficulty Healing, Frequent Infections, Hives, Itching, others Hematologic/Lymphatic: denies: anemia, blood clots, easy bleeding, easy bru ising, swollen glands, others Endocrine: denies: excessive hunger, excessive sweating, excessive thirst, e xcessive urination, flushing, intolerance to cold, intolerance to heat, unexplained weight gain, unexplained weight loss, others Psychiatric: denies: anxiety, bipolar disorder, depression, hopeless, panic disorder, schizophrenia, sleepless, suicidal, others All Other Systems: Reviewed and Negative Physical Exam General Appearance: Normal HEENT: Normal ENT Inspection, Pharynx Normal, TMs Normal Neck: Full Range of Motion, Non-Tender, Normal, Normal Inspection Respiratory: Chest Non-Tender, Lungs Clear, No Accessory Muscle Use, No Respiratory Distress, Normal Breath Sounds Cardiovascular: No Edema, No JVD, No Murmur, No Gallop, Normal Peripheral Pulses, Regular Rate/Rhythm Breast Exam: Deferred Gastrointestinal: No Organomegaly, Non Tender, No Pulsatile Mass, Normal Bowel Sounds, Soft Genitalia: Deferred Pelvic: Deferred Rectal: Deferred Extremities: No calf tenderness, Normal capillary refill, Normal inspection, Normal range of motion, Non-tender, No pedal edema Musculoskeletal : Apperance: Normal Neurologic: Alert, applied behavior specialist II-XII nml as Tested, No Motor Deficits, Normal Affect, Normal Mood, No Sensory Deficits Cerebellar Function: Normal Reflexes: Normal Skin: Dry, Normal Color, Warm Lymphatic: No Adenopathy EKG EKG : Pulse Rate (adult): 120 Cardiac Rhythm: ST Was a procedure done? Was a procedure done?: No Differential Dx Differential Diagnosis: Asthma, CHF, COPD, Hypertension, Myocardial infarction, Pneumonia, Pneumothorax, Other X-Ray, Labs, Meds, VS Vital Signs Date Time Temp Pulse Resp B/P (MAP) Pulse Ox O2 Delivery O2 Flow Rate FiO2 10/16/24 20:13 97.5 120 17 120/75 (90) 94 97.5 10/16/24 18:56 120 10/16/24 18:32 120 10/16/24 18:25 98.3 117 22 124/85 97 98.3 Lab Test 10/16/24 21:46 10/16/24 20:45 Range/Units Troponin I High Sensitivity Pending 24 </=34 ng/L White Blood Count 6.6 4.4-10.8 10^3/uL Red Blood Count 4.74 4.0-5.20 10^6/uL Hemoglobin 11.2 L 12.2-16.2 g/dL Hematocrit 35.3 L 36.0-46.0 % Mean Corpuscular Volume 74.5 L 80.0-100.0 fL Mean Corpuscular Hemoglobin 23.6 L 28.0-32.0 pg Mean Corpuscular Hemoglobin Concent 31.7 L 32.0-36.0 g/dL Red Cell Distribution Width 21.0 H 11.8-14.3 % Platelet Count 452 H 140-450 10^3/uL Mean Platelet Volume 7.1 6.9-10.8 fL Neutrophils (%) (Auto) 54.8 37.0-80.0 % Lymphocytes (%) (Auto) 33.8 10.0-50.0 % Monocytes (%) (Auto) 9.0 0.0-12.0 % Eosinophils (%) (Auto) 2.1 0.0-7.0 % Basophils (%) (Auto) 0.3 0.0-2.0 % Neutrophils # (Auto) 3.6 1.6-8.6 10 ^3/uL Lymphocytes # (Auto) 2.2 0.4-5.4 10 ^3/uL Monocytes # (Auto) 0.6 0-1.3 10 ^3/uL Eosinophils # (Auto) 0.1 0-0.8 10 ^3/uL Basophils # (Auto) 0 0-0.2 10 ^3/uL Nucleated Red Blood Cells 0.4 % Prothrombin Time 11.9 H 9.3-11.8 sec Prothrombin Time INR 1.14 0.9-1.15 Activated Partial Thromboplast Time 24.7 24.5-34.5 SEC Sodium Level 140 136-145 mmol/L Potassium Level 3.7 3.5-5.1 mmol/L Chloride Level 105 98-107 mmol/L Carbon Dioxide Level 27 20-31 mmol/L Anion Gap 8 5-15 Blood Urea Nitrogen 10 9-23 mg/dL Creatinine 0.77 0.550-1.02 mg/dL Glomerular Filtration Rate Calc 96 >90 mL/min BUN/Creatinine Ratio 13.0 10.0-20.0 Serum Glucose 89 74-106 mg/dL Calcium Level 9.3 8.7-10.4 mg/dL Total Bilirubin 0.3 0.2-1.0 mg/dL Aspartate Amino Transferase (AST) 53 H 13-40 U/L Alanine Aminotransferase (ALT) 42 H 7-40 U/L Alkaline Phosphatase 146 H 46-116 U/L B-Type Natriuretic Peptide Pending Total Protein 10.1 H 5.7-8.2 g/dL Albumin 4.3 3.2-4.8 g/dL Time of 1ST Reevaluation: 19:10 Reevaluation 1ST: Unchanged Patient Education/Counseling: Diagnosis, Treatment, Prognosis Family Education/Counseling: No Family Present SEPSIS Sepsis Screen Date sepsis recognized/suspect: Oct 16, 2024 Time Sepsis recognized/suspect: 1826 Recent Procedure: No On Antibiotic Therapy: No Respiratory Rate >20: No Heart Rate >90: Yes Temp<36 C (96.8 F) or >38.3 C: No SBP <90 or MAP <65 mmHG: No New Acute Mental Status Change: No Is the patient on CPAP, BIPAP,: No Physician Orders Electrocardigram (10/16/24 18:40) Troponin-I Hs (10/17/24 00:00) Troponin-I Hs (10/17/24 03:00) Troponin-I Hs (10/17/24 06:00) Chest Portable (10/16/24 20:14) Troponin-I Hs (10/16/24 23:14) B-Type Natriuretic Peptide (10/16/24 20:14) Vital Signs Date Time Temp Pulse Resp B/P (MAP) Pulse Ox O2 Delivery O2 Flow Rate FiO2 10/16/24 20:13 97.5 120 17 120/75 (90) 94 97.5 10/16/24 18:56 120 10/16/24 18:32 120 10/16/24 18:25 98.3 117 22 124/85 97 98.3 Laboratory Tests Test 10/16/24 20:45 White Blood Count 6.6 10^3/uL (4.4-10.8) Departure 1 Departure Time of Disposition: 22:08 Impression: Primary Impression: Acute diastolic heart failure Additional Impressions: HIV (human immunodeficiency virus infection) Pleural effusion, right Drug abuse Disposition: ADMITTED INPATIENT Admit to: Tele Condition: Guarded Comments 44-year-old female with a history of HIV and congestive heart failure now with shortness of breath even at rest. Chest x-ray shows recurrent pleural effusion and pulmonary vascular congestion. I ordered aspirin and Lasix. Patient admits to cocaine/methamphetamine abuse. Patient will need admission for supportive care and further workup Critical Care Note Critical Care Time?: Yes (35 min-critical care time only) Critical care comment: Total critical care time: Approximately 36 minutes Due to a high probability of clinically significant, life threatening deterio ration, the patient required my highest level of preparedness to intervene emergently and I personally spent this critical care time directly and personally managing the patient. This critical care time included obtaining a history; examining the patient; pulse oximetry; ordering and review of studies; arranging urgent treatment with development of a management plan; evaluation of patient's response to treatment; frequent reassessment; and, discussions with other providers. This critical care time was performed to assess and manage the high probability of imminent, life-threatening deterioration that could result in multi-organ failure. It was exclusive of separately billable procedures and treating other patients. Stability Stability form required: No Heart Score Heart Score: Heart Score Response (Comments) Value History Moderate Suspicious 1 EKG Repolarization Disturb 1 Age 45-64 1 Risk Factors >3 or Hx ASHD 2 Troponin Normal limit 0 Total 5 I personally scribed for NIGEL DE JESUS MD ([email or web address]) on 10/16/24 at 18:56. Electronically submitted by Mana Gtz ([email or web address]). NIGEL DE JESUS MD Oct 16, 2024 18:56
--- NOTE | 2024-10-16 20:46 | DVH ---
CHEST RADIOGRAPH Indication: SOB Technique: Single frontal view of the chest was obtained Comparison: XY CHEST PORTABLE on DOS: 09/27/24, CT CT CHEST/AB/PL W CON- IV ONLY on DOS: 12/09/23, XY CHEST XRAY 1 VIEW on DOS: 12/09/23 FINDINGS: Lines and Tubes: None Lungs: Improving pulmonary vascular congestion. No significant change in the right pleural effusion. Pleura: No effusion. No pneumothorax. Cardiomediastinal contours: Stable cardiomegaly Bones: No acute osseous abnormality. IMPRESSION: 1. Stable cardiomegaly. 2. Improving pulmonary vascular persistent infiltrate or atelectasis in the right base.
[2024-10-16 20:59] LABS: Hematocrit 35.3 % (36.0-46.0); Hemoglobin 11.2 g/dL (12.2-16.2); Mean Corpuscular Hemoglobin 23.6 pg (28.0-32.0)
[2024-10-16 21:01] LABS: Mean Corpuscular Volume 74.5 fL (80.0-100.0); Nucleated Red Blood Cells % 0.4 %
[2024-10-16 21:14] LABS: Albumin 4.3 g/dL (3.2-4.8); Anion Gap 8 (5-15); BUN/Creatinine Ratio 13.0 (10.0-20.0); Bilirubin, Total 0.3 mg/dL (0.2-1.0); Blood Urea Nitrogen 10 mg/dL (9-23); Calcium 9.3 mg/dL (8.7-10.4); Carbon Dioxide 27 mmol/L (20-31); Chloride 105 mmol/L (98-107); Glucose 89 mg/dL (74-106); Potassium 3.7 mmol/L (3.5-5.1); Sodium 140 mmol/L (136-145)
[2024-10-16 21:20] LABS: Alanine Aminotransferase 42 U/L (7-40); Alkaline Phosphatase 146 U/L (46-116); Total Protein 10.1 g/dL (5.7-8.2)
[2024-10-16 21:24] LABS: INR 1.14 (0.9-1.15); Partial Thromboplastin Time 24.7 SEC (24.5-34.5); Prothrombin Time 11.9 sec (9.3-11.8)
[2024-10-16 23:35] LABS: Urine Amorphous Crystal FEW /hpf (None Seen); Urine Protein, UAD 1+ (Negative)
[2024-10-16 23:42] LABS: Opiate Scree,Urine Neg (NEGATIVE)
[2024-10-16 23:46] LABS: Amphetamine Screen, Urine Neg (NEGATIVE); Barbiturate Scree,Urine Neg (NEGATIVE); Benzodiazephine Screen, Urine Neg (NEGATIVE); Cannabinoid Screen, Urine Neg (NEGATIVE); Cocaine Screen, Urine Neg (NEGATIVE); Phencyclidine Screen, Urine Neg (NEGATIVE)
[2024-10-17] VITALS (7 sets, daily range): BP systolic 96–127; BP diastolic 69–87; PULSE 96–111; RESP 16–22; TEMP 97.6–98.6; O2SAT 95–97
[2024-10-17] MEDS: FUROSEMIDE 20 MG/2 ML VIAL IV ONE (00:21)
[2024-10-17] MEDS: ACETAMINOPHEN 325 MG TAB PO PRN (02:23)
--- NOTE | 2024-10-17 04:16 | DVHHP2 ---
History of Present Illness Reason for Visit: Shortness for breath History of Present Illness 44-year-old female presents for evaluation of shortness for breath. Patient endorses a one day history of shortness for breath with associated chest tightness. Patient reports not taking her medications for the past two days. Denies cough or fever. No other acute complaints reported. Past Medical History Schizophrenia, HIV, CHF, hypertension, anxiety Past Surgical History Denies Family History Noncontributory Smoke: No ALCOHOL: none Drugs: Other (Methamphetamine) Lives: with Family Review of Systems Review of Systems Review of systems are currently negative otherwise addressed in HPI. Allergies: Coded Allergies: Ibuprofen (Verified Allergy, Unknown, 01/03/14) Uncoded Allergies: NO KNOWN (Allergy, Unknown, 12/08/23) Medications Current Medications Medications Dose Ordered Sig/Dilip Route Start Time Stop Time Status Last Admin Dose Admin Furosemide 20 mg DAILY IV 10/17/24 10:00 Atorvastatin Calcium 40 mg HS PO 10/17/24 22:00 Sacubitril/ Valsartan 0.5 tab BID PO 10/17/24 10:00 UNV Spironolactone 25 mg DAILY PO 10/17/24 10:00 Losartan Potassium 25 mg DAILY PO 10/17/24 10:00 UNV Temazepam 15 mg QHSP PRN PO 10/16/24 23:45 Ondansetron HCl 4 mg Q4HP PRN IV 10/16/24 23:45 Acetaminophen 650 mg Q6HP PRN PO 10/16/24 23:45 10/17/24 02:23 650 MG Exam Vital Signs Vital Signs Date Time Temp Pulse Resp B/P (MAP) Pulse Ox O2 Delivery O2 Flow Rate FiO2 10/17/24 03:43 110 16 96 Room Air* 0 21 21 10/17/24 02:21 98.6 111/82 (92) 98.6 Exam Gen: 44-year-old female in mild distress Skin: Warm, dry, normal color and texture, no rash. HEENT: Normocephalic atraumatic, mucous membranes moist and pink. Neck: Cervical and supraclavicular nodes normal without enlargement, trachea is midline, thyroid gland is normal without masses. Pulmonary: Clear to auscultation and percussion bilaterally. Cardiac: Regular rate and rhythm. No murmur Abdomen: Soft, nontender, nondistended, bowel sounds present all 4 quadrants, no guarding, no rigidity, no organomegaly. Extremities: No cyanosis, clubbing, no edema Neuro: Cranial nerves II through XII grossly intact, normal affect and speech, no focal motor deficits. Labs/Xrays ORDERING PHYSICIAN: PRERNA KAN PROCEDURE(s): ECIDC - ECHO 2D MODE CARDIAC DOP REASON: CHF ORDER NUMBER(s): [id number], ACCESSION NUMBER(s): [id number] APPROVED REPORT EXAM: Two-dimensional and M-mode echocardiogram with Doppler and color Doppler. Blood Pressure: 93/65 mmHg INDICATION Heart Failure RISK FACTORS Height: 5'6", Weight: 132 DIMENSIONS LVDd 6.0 (3.8-5.7cm) LA (2D) 4.4 (1.9-4.0cm) Aortic Root 3.0 (2.0- 3.7cm) LVDs 5.5 (2.5-4.0cm) LA (MM) (1.9-4.0cm) Aortic Cusp Exc 1.8 (1.5- 2.0cm) EF (%) 18.0 (55-70%) Rt. Atrium 5.8 (1.9-4.0cm) Asc. Aorta 2.7 cm IVSd 0.7 (0.7-1.1cm) RV (D) 4.7 (1.8-2.4cm) PWd 0.7 (0.7-1.1cm) Mitral Valve Mitral Mitral Stenosis E wave 1.15m/s MV Mean GR. mmHg A wave 0.73m/s MV Peak GR. mmHg E/A ratio 1.6 2D MVA cm2 DECEL Time 115ms PRESS 1/2 Time ms Aortic Valve Aortic Valve Aortic Stenosis V1 0.72m/s AO Mean GR. 3mmHg V2 1.07m/s AO Peak GR. 5mmHg LVOT Diameter 2.1 (1.8-2.4cm) Doppler BRANDON 2.33cm2 Pulmonic Valve V2 0.79m/s Tricuspid Valve TR Velocity 2.75m/s RVSP 33mmHg Conclusion REMARKABLY DILATED ALL CARDIAC CHAMBERS SEVERE GLOBAL LV AND RV HYPOKINESIS LV EF IS ONLY 18% IT IS END STAGE DILATED CARDIOMYOPATHY NORMAL VALVES SEVERE MR NO EFFUSION SIGNED BY: TAMMI SIMS MD SIGNED DATE/TIME: 09/29/24 0272 ORDERING PHYSICIAN: NIGEL DE JESUS MD PROCEDURE(s): CXRP - CHEST PORTABLE REASON: SOB ORDER NUMBER(s): [id number], ACCESSION NUMBER(s): [id number] CHEST RADIOGRAPH Indication: SOB Technique: Single frontal view of the chest was obtained Comparison: XY CHEST PORTABLE on DOS: 09/27/24, CT CT CHEST/AB/PL W CON- IV ONLY on DOS: 12/09/23, XY CHEST XRAY 1 VIEW on DOS: 12/09/23 FINDINGS: Lines and Tubes: None Lungs: Improving pulmonary vascular congestion. No significant change in the right pleural effusion. Pleura: No effusion. No pneumothorax. Cardiomediastinal contours: Stable cardiomegaly Bones: No acute osseous abnormality. IMPRESSION: 1. Stable cardiomegaly. 2. Improving pulmonary vascular persistent infiltrate or atelectasis in the right base. Labs Test 10/16/24 22:22 10/16/24 21:46 10/16/24 20:45 Range/Units Urine Color Light-yellow Yellow Urine Clarity Turbid H Clear Urine pH 7.5 5.0-9.0 Urine Specific [place] 1.022 1.001-1.035 Urine Protein 1+ H Negative Urine Ketones Negative Negative Urine Blood Negative Negative /uL Urine Nitrite Negative Negative Urine Bilirubin Negative Negative Urine Urobilinogen Normal Negative mg/dL Urine Leukocyte Esterase Negative Negative /uL Urine RBC None seen 0 - 4 /hpf Urine Microscopic WBC < 1 0-5 /HPF Urine Squamous Epithelial Cells Few <5 /hpf Urine Amorphous Crystals Few None Seen /hpf Urine Bacteria None seen None Seen /hpf Urine Glucose Trace Normal mg/dL Urine Opiates Screen Neg NEGATIVE Urine Fentanyl Screen Neg NEGATIVE Urine Barbiturates Screen Neg NEGATIVE Urine Phencyclidine Screen Neg NEGATIVE Urine Amphetamines Screen Neg NEGATIVE Urine Benzodiazepines Screen Neg NEGATIVE Urine Cocaine Screen Neg NEGATIVE Urine Cannabinoids Screen Neg NEGATIVE Troponin I High Sensitivity 26 </=34 ng/L White Blood Count 6.6 4.4-10.8 10^3/uL Red Blood Count 4.74 4.0-5.20 10^6/uL Hemoglobin 11.2 L 12.2-16.2 g/dL Hematocrit 35.3 L 36.0-46.0 % Mean Corpuscular Volume 74.5 L 80.0-100.0 fL Mean Corpuscular Hemoglobin 23.6 L 28.0-32.0 pg Mean Corpuscular Hemoglobin Concent 31.7 L 32.0-36.0 g/dL Red Cell Distribution Width 21.0 H 11.8-14.3 % Platelet Count 452 H 140-450 10^3/uL Mean Platelet Volume 7.1 6.9-10.8 fL Neutrophils (%) (Auto) 54.8 37.0-80.0 % Lymphocytes (%) (Auto) 33.8 10.0-50.0 % Monocytes (%) (Auto) 9.0 0.0-12.0 % Eosinophils (%) (Auto) 2.1 0.0-7.0 % Basophils (%) (Auto) 0.3 0.0-2.0 % Neutrophils # (Auto) 3.6 1.6-8.6 10 ^3/uL Lymphocytes # (Auto) 2.2 0.4-5.4 10 ^3/uL Monocytes # (Auto) 0.6 0-1.3 10 ^3/uL Eosinophils # (Auto) 0.1 0-0.8 10 ^3/uL Basophils # (Auto) 0 0-0.2 10 ^3/uL Nucleated Red Blood Cells 0.4 % Prothrombin Time 11.9 H 9.3-11.8 sec Prothrombin Time INR 1.14 0.9-1.15 Activated Partial Thromboplast Time 24.7 24.5-34.5 SEC Sodium Level 140 136-145 mmol/L Potassium Level 3.7 3.5-5.1 mmol/L Chloride Level 105 98-107 mmol/L Carbon Dioxide Level 27 20-31 mmol/L Anion Gap 8 5-15 Blood Urea Nitrogen 10 9-23 mg/dL Creatinine 0.77 0.550-1.02 mg/dL Glomerular Filtration Rate Calc 96 >90 mL/min BUN/Creatinine Ratio 13.0 10.0-20.0 Serum Glucose 89 74-106 mg/dL Calcium Level 9.3 8.7-10.4 mg/dL Total Bilirubin 0.3 0.2-1.0 mg/dL Aspartate Amino Transferase (AST) 53 H 13-40 U/L Alanine Aminotransferase (ALT) 42 H 7-40 U/L Alkaline Phosphatase 146 H 46-116 U/L B-Type Natriuretic Peptide 520.86 0-100 pg/mL Total Protein 10.1 H 5.7-8.2 g/dL Albumin 4.3 3.2-4.8 g/dL SEPSIS Sepsis Screen Date sepsis recognized/suspect: Oct 16, 2024 Time Sepsis recognized/suspect: 1826 Recent Procedure: No On Antibiotic Therapy: No Respiratory Rate >20: No Heart Rate >90: Yes Temp<36 C (96.8 F) or >38.3 C: No SBP <90 or MAP <65 mmHG: No New Acute Mental Status Change: No Is the patient on CPAP, BIPAP,: No Physician Orders Chest Portable (10/16/24 20:14) Furosemide Injection (Lasix Injection) (10/17/24 10:00) Atorvastatin (Lipitor) (10/17/24 22:00) Sacubitril-Valsartan (Entresto 24-26 Mg (10/17/24 10:00) Spironolactone (Aldactone) (10/17/24 10:00) Losartan Tablet (Cozaar Tablet) (10/17/24 10:00) Admit (10/16/24 23:41) Temazepam (Restoril) (10/16/24 23:45) Ondansetron Hcl (Zofran) (10/16/24 23:45) Cardiac Diet-2gna,Lofat,Lochol (10/17/24 Breakfast) Condition: Stable (10/16/24 23:41) Acetaminophen Tablet (Tylenol Tablet) (10/16/24 23:45) Bedrest With Bathroom Privileg (10/16/24 23:41) Vital Signs Date Time Temp Pulse Resp B/P (MAP) Pulse Ox O2 Delivery O2 Flow Rate FiO2 10/17/24 03:43 110 16 96 Room Air* 0 21 21 10/17/24 02:21 98.6 113 16 111/82 (92) 96 98.6 10/17/24 00:23 115 16 95 Room Air 10/17/24 00:08 98.1 115 16 104/78 (87) 95 98.1 10/16/24 22:30 97.9 59 16 111/76 (88) 97 97.9 10/16/24 20:13 97.5 120 17 120/75 (90) 94 97.5 Laboratory Tests Test 10/16/24 20:45 White Blood Count 6.6 10^3/uL (4.4-10.8) Medications Medications Dose Ordered Sig/Dilip Route Start Time Stop Time Status Last Admin Dose Admin Acetaminophen 650 mg Q6HP PRN PO 10/16/24 23:45 10/17/24 02:23 650 MG Assessment/Plan Assessment/Plan Assessment Acute on chronic congestive heart failure History of HIV Noncompliant Hypertension Plan Admit the patient to Med surge to the hospitalist OLLIE Archibald Resume medications Continue treatment per orders. Plan discussed with: Patient My Orders Orders - PRERNA KAN Procedure Category Date Status Time Furosemide Injection PHA 10/17/24 In Process (Lasix Injection) 10:00 Atorvastatin (Lipitor) PHA 10/17/24 In Process 22:00 Sacubitril-Valsartan PHA 10/17/24 Pending (Entresto 24-26 Mg 10:00 Spironolactone PHA 10/17/24 In Process (Aldactone) 10:00 Losartan Tablet PHA 10/17/24 Pending (Cozaar Tablet) 10:00 Admit ADMIT 10/16/24 Transmitted 23:41 Temazepam (Restoril) PHA 10/16/24 In Process 23:45 Ondansetron Hcl PHA 10/16/24 In Process (Zofran) 23:45 Cardiac DIET 10/17/24 Transmitted Diet-2gna,Lofat,Lochol Breakfast Condition: Stable PEDRO LUIS 10/16/24 In Process 23:41 Acetaminophen Tablet PHA 10/16/24 In Process (Tylenol Tablet) 23:45 Bedrest With Bathroom PEDRO LUIS 10/16/24 In Process Privileg 23:41 Date of Service: Oct 16, 2024 Billing Provider: PRERNA KAN Common Visit Codes: [id number] INP/OBS CARE (HIGH) PRERNA KAN Oct 17, 2024 04:16
--- NOTE | 2024-10-17 08:59 | DVHPNRES ---
Progress Note Date Seen: Oct 17, 2024 Resident Creating Document: TITI STRICKLAND RESIDENT Medical Necessity Reason Pt with a Central, PICC or Fol: No Subjective Review of Systems Geeta Monet 44-year-old female with past medical history of HFrEF, recurrent pneumonia, PTSD, AIDS, presented to the ER with chief complain of chest pain, shortness of breaths. Chest pain was sharp, 8 on 10, substernal, increases with coughing and inspiration. Shortness of breath worsens when talking and walking. No history of fever, chills, palpitations, change in bowel or bladder movements, abdominal pain. Vitals show tachycardia, tachypnea on admission PMHx: HFrEF, recurrent pneumonia, PTSD, AIDS PSHx: Reconstructive surgery of left eye 2012 Social history: Reports quitting smoking 2 months ago, denies alcohol use, history of drug use polysubstance abuse, quit methamphetamine 2 weeks back Home medication: Donavat, Bactrim Allergic history: Ibuprofen ROS: Constitutional: Denies weight loss, fever and chills. HEENT: Denies changes in vision and hearing. Respiratory: Shortness of breath and cough Cardiovascular: Chest pain, palpitations GI: Denies abdominal pain, nausea, vomiting and diarrhea. : Denies dysuria and urinary frequency. Musculoskeletal: Denies myalgias and joint pain Skin: Denies rash and pruritus. Neurological: Denies dizziness, headache, vision or hearing problems She was examined at bedside today, vitals show tachycardia, tachypnea. She complains of shortness of breaths. Echo ordered Objective vital signs Vital Sign Date Time Temp Pulse Resp B/P (MAP) Pulse Ox O2 Delivery O2 Flow Rate FiO2 10/17/24 04:30 111 20 110/68 (82) 100 10/17/24 03:43 Room Air* 0 21 21 10/17/24 02:21 98.6 98.6 medications Current Medications Medications Dose Ordered Sig/Dilip Route Start Time Stop Time Status Last Admin Dose Admin Furosemide 20 mg DAILY IV 10/17/24 10:00 Atorvastatin Calcium 40 mg HS PO 10/17/24 22:00 Sacubitril/ Valsartan 0.5 tab BID PO 10/17/24 10:00 Future Hold Spironolactone 25 mg DAILY PO 10/17/24 10:00 Losartan Potassium 25 mg DAILY PO 10/17/24 10:00 Future Hold Temazepam 15 mg QHSP PRN PO 10/16/24 23:45 Ondansetron HCl 4 mg Q4HP PRN IV 10/16/24 23:45 Acetaminophen 650 mg Q6HP PRN PO 10/16/24 23:45 10/17/24 02:23 650 MG Examination General: Patient alert and oriented in person, place and time. Patient following commands. HEENT: Normocephalic, atraumatic, moist mucous membranes Respiratory/pulmonary: Bilateral wheezing lungs Cardiovascular: Hyperdynamic precordium Abdomen: Abdomen nondistended, there is no pain to palpation in any of the abdominal quadrants, no palpable masses. Extremities: There is no peripheral edema present at the lower extremities. Peripheral Pulses: 3+ Radial (R). 3+ Radial (L). 3+ Dorsalis pedis (R). 3+ Dorsalis pedis(L) Skin: No rashes or pruritus, there is no sacral edema present at this time. Neurological: Intact cranial nerves with no focal neurologic deficits laboratory and microbiology Laboratory Tests 10/16/24 20:45 Test 10/16/24 20:45 Range/Units Serum Glucose 89 74-106 mg/dL Problem List/Assessment/Plan Problem List/Assessment/Plan Acute exacerbation of HFrEF Pleural effusion Labs show BNP elevated. Negative toxicology screen, UA turbid, PT elevated CXR: Stable cardiomegaly. Improving pulmonary vascular persistent infiltrate or atelectasis in the right base. EKG reveals sinus rhythm CT chest ordered Continue atorvastatin, losartan, spironolactone, Entresto, furosemide Pain control, Zofran Chronic insomnia Immunocompromised state History of recurrent pneumonia History of HIV, AIDS Microcytic, microchromic anemia, due to ALAYNA Reactive thrombocytosis Hypertension, ruled out on history History of polysubstance abuse Health to moderate Protein calorie malnutrition DIET: Cardiac DVT PROPHYLAXIS: Ambulatory CODE STATUS: Goals of care discussed with patient at bedside for more than 35 minutes. Full code DISPOSITION: Med/surge Patient's status and plan discussed with the patient. Case discussed with Dr. Cramer. Plan discussed with: Patient Date of Service: Oct 17, 2024 Billing Provider: SCOOTER CRAMER MD Common Visit Codes: [id number] INP/OBS CARE(HIGH) TITI STRICKLAND RESIDENT Oct 17, 2024 08:59 SCOOTER CRAMER MD Oct 17, 2024 22:35
[2024-10-17] MEDS ORDERED: LOS25T PO (09:52)
[2024-10-17] MEDS ORDERED: FAMO-12 PO (09:52)
[2024-10-17] MEDS ORDERED: FLUC40SU7 (09:52)
[2024-10-17] MEDS ORDERED: METO25TA93 PO (09:52)
[2024-10-17] MEDS ORDERED: LOSARTAN POTASSIUM 25 MG TAB PO SCH (10:00)
[2024-10-17] MEDS ORDERED: SACUBITRIL-VALSARTAN 24mg/26mg TAB PO SCH (10:00)
--- NOTE | 2024-10-17 11:48 | ECG ---
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
--- NOTE | 2024-10-17 12:15 | ECG ---
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
[2024-10-17] MEDS: FUROSEMIDE 20 MG/2 ML VIAL IV SCH (12:23)
[2024-10-17] MEDS: SPIRONOLACTONE 25 MG TAB PO SCH (12:23)
[2024-10-17] MEDS: ACETAMINOPHEN 325 MG TAB PO SCH (14:00)
[2024-10-17] MEDS: KETOROLAC TROMETH 30 MG/ML 1ML VIAL IV ONE (14:27)
[2024-10-17] MEDS: ONDANSETRON HCL 4 MG/2 ML VIAL IV PRN (14:28)
[2024-10-17] MEDS ORDERED: KETOROLAC TROMETH 30 MG/ML 1ML VIAL IV PRN (20:00)
[2024-10-17] MEDS: ATORVASTATIN 20 MG TAB PO SCH (21:11)
[2024-10-18] VITALS (7 sets, daily range): BP systolic 92–110; BP diastolic 61–81; PULSE 68–131; RESP 18–20; TEMP 97.6–98.7; O2SAT 97–100
[2024-10-18] MEDS: HYDROcodone-ACET 5/325MG TAB PO ONE (02:40)
--- NOTE | 2024-10-18 08:32 | DVH ---
Procedure: CT CHEST WITHOUT CONTRAST Reason for study/Clinical History: to eval nodule seen on CXR Comparison Study: XY CHEST PORTABLE on DOS: 10/16/24, XY CHEST PORTABLE on DOS: 09/27/24, XY CHEST XRAY 1 VIEW on DOS: 12/09/23 TECHNIQUE: Multidetector CT of the chest was performed from the lung apices to the upper abdomen with out the use of intravenous contract. Axial, coronal and sagittal multiplanar reformats were performed . Radiation Dose Information: CT Dose: CTDI volume is 4.56 mGy. Dose-length product is 182.71 mGy*cm The dose indicators for CT are the volume Computed Tomography (CT) Dose Index (CTDIvol) and the Dose Length Product (DLP), and are measured in units of mGy and mGy-cm, respectively. These indicators are not patient dose, but values generated from the CT scanner acquisition factors. The report includes radiation exposure data for exposures received during this examination. FINDINGS: Lower neck: Moderate to severe nonspecific thickening of the mid to distal esophagus. Lungs: Right lower lobe posteromedial airspace consolidation. Patchy multifocal airspace opacities an d nodularity are likely infectious or inflammatory. Heart/Vascular Structures: Normal heart size. No pericardial effusion. Lymph Nodes: No adenopathy Pleura: No pleural effusion or significant pneumothorax. Musculoskeletal: No acute osseous abnormality. Soft tissues: Normal. Upper abdomen: Limited portions of the upper abdomen are unremarkable. IMPRESSION: Multifocal airspace disease with more focal consolidation in the posteromedial right lower lobe. Perez mmend repeat imaging after treatment to ensure complete resolution. Nonspecific indeterminate moderate to severe thickening of the mid to distal esophagus. EGD could be considered to further evaluate if clinically indicated.
[2024-10-18 11:55] LABS: Hematocrit 34.8 % (36.0-46.0); Hemoglobin 10.8 g/dL (12.2-16.2); Mean Corpuscular Hemoglobin 23.0 pg (28.0-32.0); Mean Corpuscular Volume 73.7 fL (80.0-100.0); Nucleated Red Blood Cells % 0.1 %
[2024-10-18 11:56] LABS: Chloride 102 mmol/L (98-107); Potassium 4.3 mmol/L (3.5-5.1)
[2024-10-18 11:57] LABS: Anion Gap 9 (5-15); Calcium 8.9 mg/dL (8.7-10.4); Carbon Dioxide 24 mmol/L (20-31)
[2024-10-18 11:59] LABS: Sodium 135 mmol/L (136-145)
[2024-10-18 12:02] LABS: BUN/Creatinine Ratio 18.2 (10.0-20.0); Blood Urea Nitrogen 16 mg/dL (9-23); Glucose 94 mg/dL (74-106)
--- NOTE | 2024-10-18 13:35 | DVHPNRES ---
Progress Note Date Seen: Oct 18, 2024 Resident Creating Document: TITI STRICKLAND RESIDENT Medical Necessity Reason Pt with a Central, PICC or Fol: No Subjective Review of Systems Geeta Monet 44-year-old female with past medical history of HFrEF, recurrent pneumonia, PTSD, AIDS, presented to the ER with chief complain of chest pain, shortness of breaths. Chest pain was sharp, 8 on 10, substernal, increases with coughing and inspiration. Shortness of breath worsens when talking and walking. No history of fever, chills, palpitations, change in bowel or bladder movements, abdominal pain. Vitals show tachycardia, tachypnea on admission PMHx: HFrEF, recurrent pneumonia, PTSD, AIDS PSHx: Reconstructive surgery of left eye 2012 Social history: Reports quitting smoking 2 months ago, denies alcohol use, history of drug use polysubstance abuse, quit methamphetamine 2 weeks back Home medication: Donavat, Bactrim Allergic history: Ibuprofen ROS: Constitutional: Denies weight loss, fever and chills. HEENT: Denies changes in vision and hearing. Respiratory: Shortness of breath and cough Cardiovascular: Chest pain, palpitations GI: Denies abdominal pain, nausea, vomiting and diarrhea. : Denies dysuria and urinary frequency. Musculoskeletal: Denies myalgias and joint pain Skin: Denies rash and pruritus. Neurological: Denies dizziness, headache, vision or hearing problems She was examined at bedside today, vitals show tachycardia, tachypnea. She complains of shortness of breaths. Echo ordered Objective vital signs Vital Sign Date Time Temp Pulse Resp B/P (MAP) Pulse Ox O2 Delivery O2 Flow Rate FiO2 10/18/24 10:42 96/68 10/18/24 08:30 97.7 110 18 98 97.7 10/18/24 08:00 Room Air* 0 21 Total Intake and Output 10/17/24 10/17/24 10/18/24 15:00 23:00 07:00 Intake Total 250 ml 0 ml Output Total 4 ml Balance 246 ml 0 ml medications Current Medications Medications Dose Ordered Sig/Dilip Route Start Time Stop Time Status Last Admin Dose Admin Furosemide 20 mg DAILY IV 10/17/24 10:00 10/18/24 10:42 20 MG Atorvastatin Calcium 40 mg HS PO 10/17/24 22:00 10/17/24 21:11 40 MG Sacubitril/ Valsartan 0.5 tab BID PO 10/17/24 10:00 Hold Spironolactone 25 mg DAILY PO 10/17/24 10:00 10/18/24 09:31 25 MG Losartan Potassium 25 mg DAILY PO 10/17/24 10:00 Hold Temazepam 15 mg QHSP PRN PO 10/16/24 23:45 Ondansetron HCl 4 mg Q4HP PRN IV 10/16/24 23:45 10/17/24 14:28 4 MG Acetaminophen 650 mg Q6H PO 10/17/24 14:00 10/18/24 08:15 650 MG Ketorolac Tromethamine 15 mg Q6HPRN PRN IV 10/17/24 20:00 10/22/24 12:00 Examination General: Patient alert and oriented in person, place and time. Patient following commands. HEENT: Normocephalic, atraumatic, moist mucous membranes Respiratory/pulmonary: Bilateral wheezing lungs Cardiovascular: Hyperdynamic precordium Abdomen: Abdomen nondistended, there is no pain to palpation in any of the abdominal quadrants, no palpable masses. Extremities: There is no peripheral edema present at the lower extremities. Peripheral Pulses: 3+ Radial (R). 3+ Radial (L). 3+ Dorsalis pedis (R). 3+ Dorsalis pedis(L) Skin: No rashes or pruritus, there is no sacral edema present at this time. Neurological: Intact cranial nerves with no focal neurologic deficits laboratory and microbiology Laboratory Tests 10/18/24 10:31 Test 10/18/24 10:31 Range/Units Serum Glucose 94 74-106 mg/dL Problem List/Assessment/Plan Problem List/Assessment/Plan Acute exacerbation of HFrEF Pleural effusion Labs show BNP elevated. Negative toxicology screen, UA turbid, PT elevated CXR: Stable cardiomegaly. Improving pulmonary vascular persistent infiltrate or atelectasis in the right base. EKG reveals sinus rhythm Continue atorvastatin, losartan, spironolactone, Entresto, furosemide Pain control, Zofran Continue diuresis History of HIV, AIDS Continue home medications Chronic insomnia Immunocompromised state History of recurrent pneumonia Microcytic, microchromic anemia, due to ALAYNA Reactive thrombocytosis Hypertension, ruled out on history History of polysubstance abuse Health to moderate Protein calorie malnutrition DIET: Cardiac DVT PROPHYLAXIS: Ambulatory CODE STATUS: Goals of care discussed with patient at bedside for more than 35 minutes. Full code DISPOSITION: Med/surge Patient's status and plan discussed with the patient. Case discussed with Dr. Cramer. Plan discussed with: Patient My Orders My Orders Orders - TITI STRICKLAND Procedure Category Date Status Time Mrsa Screen SERAFIN 10/17/24 In Process 20:28 Cd4/Cd8 Ratio Profile LAB 10/18/24 In Process 12:19 Complete Blood Count LAB 10/19/24 Verified 04:00 Basic Metabolic Panel LAB 10/19/24 Verified 04:00 Date of Service: Oct 18, 2024 Billing Provider: SCOOTER CRAMER MD Common Visit Codes: [id number] INP/OBS CARE(HIGH) TITI STRICKLAND Oct 18, 2024 13:35 SCOOTER CRAMER MD Oct 25, 2024 21:18
[2024-10-18 16:49] LABS: Alanine Aminotransferase 49.0 U/L (7-40); Albumin 4.1 g/dL (3.2-4.8); Alkaline Phosphatase 118.0 U/L (46-116); Bilirubin, Direct 0.1 mg/dL (<0.3); Bilirubin, Total 0.4 mg/dL (0.2-1.0); Total Protein 9.8 g/dL (5.7-8.2)
[2024-10-18] MEDS: TEMAZEPAM 15 MG CAP PO PRN (22:22)
[2024-10-19 01:00] VITALS: BP 107/77; PULSE 111; RESP 20; TEMP 98.2; O2SAT 97
[2024-10-19 05:00] VITALS: BP 107/79; PULSE 118; RESP 20; TEMP 97.8; O2SAT 97
[2024-10-19 05:08] LABS: Hematocrit 36.4 % (34.0-46.6); Hemoglobin 10.5 g/dL (11.1-15.9); MCH 22.4 pg (26.6-33.0); MCHC 28.8 g/dL (31.5-35.7); MCV 78 fL (79-97); RBC 4.68 x10E6/uL (3.77-5.28); RDW 18.5 % (11.7-15.4); WBC 6.5 x10E3/uL (3.4-10.8)
[2024-10-19 06:53] LABS: Anion Gap 9 (5-15); Carbon Dioxide 24 mmol/L (20-31); Chloride 103 mmol/L (98-107); Potassium 4.5 mmol/L (3.5-5.1); Sodium 136 mmol/L (136-145)
[2024-10-19 06:54] LABS: Calcium 9.1 mg/dL (8.7-10.4)
[2024-10-19 06:59] LABS: BUN/Creatinine Ratio 17.2 (10.0-20.0); Blood Urea Nitrogen 15 mg/dL (9-23); Glucose 85 mg/dL (74-106)
[2024-10-19 07:04] LABS: Hemoglobin 9.5 g/dL (12.2-16.2)
[2024-10-19 07:07] LABS: Hematocrit 30.1 % (36.0-46.0); Mean Corpuscular Hemoglobin 23.4 pg (28.0-32.0); Mean Corpuscular Volume 73.9 fL (80.0-100.0); Nucleated Red Blood Cells % 0.2 %
[2024-10-19 08:00] VITALS: PULSE 68; O2SAT 97
[2024-10-19 08:43] VITALS: BP 104/78; PULSE 117; RESP 19; TEMP 98; O2SAT 97
[2024-10-19] MEDS: METOPROLOL SUCCINATE XL 50 MG TAB PO SCH (09:45)
[2024-10-19 11:07] LABS: CD4/CD8 Ratio 0.10 (0.92-3.72)
[2024-10-19] MEDS: FUROSEMIDE 40 MG TAB PO ONE (11:44)
[2024-10-19 12:38] VITALS: BP 123/58; TEMP 36.7
--- NOTE | 2024-10-19 13:58 | DVHDSRES ---
Discharge Summary Date of Admission Resident Creating Document: TITI STRICKLAND RESIDENT Oct 16, 2024 at 23:41 Date of Discharge: Oct 19, 2024 Labs/Diagnostic Data: Laboratory Results Test 10/19/24 11:50 10/19/24 04:36 10/18/24 12:59 10/17/24 13:15 Lactic Acid Level 1.6 mmol/L (0.4-2.0) White Blood Count 5.0 10^3/uL (4.4-10.8) Red Blood Count 4.08 10^6/uL (4.0-5.20) Hemoglobin 9.5 g/dL (12.2-16.2) Hematocrit 30.1 % (36.0-46.0) Mean Corpuscular Volume 73.9 fL (80.0-100.0) Mean Corpuscular Hemoglobin 23.4 pg (28.0-32.0) Mean Corpuscular Hemoglobin Concent 31.7 g/dL (32.0-36.0) Red Cell Distribution Width 20.7 % (11.8-14.3) Platelet Count 416 10^3/uL (140-450) Mean Platelet Volume 7.4 fL (6.9-10.8) Neutrophils (%) (Auto) 63.5 % (37.0-80.0) Lymphocytes (%) (Auto) 24.1 % (10.0-50.0) Monocytes (%) (Auto) 10.9 % (0.0-12.0) Eosinophils (%) (Auto) 0.7 % (0.0-7.0) Basophils (%) (Auto) 0.8 % (0.0-2.0) Neutrophils # (Auto) 3.2 10 ^3/uL (1.6-8.6) Lymphocytes # (Auto) 1.2 10 ^3/uL (0.4-5.4) Monocytes # (Auto) 0.5 10 ^3/uL (0-1.3) Eosinophils # (Auto) 0 10 ^3/uL (0-0.8) Basophils # (Auto) 0 10 ^3/uL (0-0.2) Nucleated Red Blood Cells 0.2 % Erythrocyte Sedimentation Rate 71 mm/hr (0-20) Sodium Level 136 mmol/L (136-145) Potassium Level 4.5 mmol/L (3.5-5.1) Chloride Level 103 mmol/L (98-107) Carbon Dioxide Level 24 mmol/L (20-31) Anion Gap 9 (5-15) Blood Urea Nitrogen 15 mg/dL (9-23) Creatinine 0.87 mg/dL (0.550-1.02) Glomerular Filtration Rate Calc 83 mL/min (>90) BUN/Creatinine Ratio 17.2 (10.0-20.0) Serum Glucose 85 mg/dL (74-106) Calcium Level 9.1 mg/dL (8.7-10.4) C-Reactive Protein High Sensitivity 0.43 mg/dL (<1.0) Absolute Neutrophils (auto) 4.5 x10E3/uL (1.4-7.0) Absolute Lymphocytes (auto) 1.4 x10E3/uL (0.7-3.1) Absolute Monocytes (auto) 0.5 x10E3/uL (0.1-0.9) Absolute Eosinophils (auto) 0.1 x10E3/uL (0.0-0.4) Absolute Basophils (auto) 0.0 x10E3/uL (0.0-0.2) Immature Granulocytes % 0 % (Not Estab.) Immature Granulocytes # 0 x10E3/uL (0.0-0.1) Immature Blood Cells (.) Hematology Comments (.) Total Bilirubin 0.4 mg/dL (0.2-1.0) Direct Bilirubin 0.1 mg/dL (<0.3) Aspartate Amino Transferase (AST) 59 U/L (13-40) Alanine Aminotransferase (ALT) 49 U/L (7-40) Alkaline Phosphatase 118 U/L (46-116) Total Protein 9.8 g/dL (5.7-8.2) Albumin 4.1 g/dL (3.2-4.8) Percent CD4 Cells 8.6 % (30.8-58.5) Absolute CD4 Count 120 /uL (359-1519) T-Lymphocyte CD4/CD8 Ratio 0.10 (0.92-3.72) Percent CD8 Cells 83.2 % (12.0-35.5) Absolute CD8 Count 1165 /uL (109-897) Beta HCG, Quantitative 0.2 mIU/mL (1.5-4.2) Test 10/16/24 22:22 10/16/24 21:46 10/16/24 20:45 Urine Color Light-yellow (Yellow) Urine Clarity Turbid (Clear) Urine pH 7.5 (5.0-9.0) Urine Specific [place] 1.022 (1.001-1.035) Urine Protein 1+ (Negative) Urine Ketones Negative (Negative) Urine Blood Negative /uL (Negative) Urine Nitrite Negative (Negative) Urine Bilirubin Negative (Negative) Urine Urobilinogen Normal mg/dL (Negative) Urine Leukocyte Esterase Negative /uL (Negative) Urine RBC None seen /hpf (0 - 4) Urine Microscopic WBC < 1 /HPF (0-5) Urine Squamous Epithelial Cells Few /hpf (<5) Urine Amorphous Crystals Few /hpf (None Seen) Urine Bacteria None seen /hpf (None Seen) Urine Glucose Trace mg/dL (Normal) Urine Opiates Screen Neg (NEGATIVE) Urine Fentanyl Screen Neg (NEGATIVE) Urine Barbiturates Screen Neg (NEGATIVE) Urine Phencyclidine Screen Neg (NEGATIVE) Urine Amphetamines Screen Neg (NEGATIVE) Urine Benzodiazepines Screen Neg (NEGATIVE) Urine Cocaine Screen Neg (NEGATIVE) Urine Cannabinoids Screen Neg (NEGATIVE) Troponin I High Sensitivity 26 ng/L (</=34) Prothrombin Time 11.9 sec (9.3-11.8) Prothrombin Time INR 1.14 (0.9-1.15) Activated Partial Thromboplast Time 24.7 SEC (24.5-34.5) B-Type Natriuretic Peptide 520.86 pg/mL (0-100) Other Laboratory Tests 10/19/24 04:36 Brief Hx & Hospital Course: Brief history on admission: Geeta Monet 44-year-old female with past medical history of HFrEF, recurrent pneumonia, PTSD, AIDS, presented to the ER with chief complain of chest pain, shortness of breaths. Chest pain was sharp, 8 on 10, substernal, increases with coughing and inspiration. Shortness of breath worsens when talking and walking. No history of fever, chills, palpitations, change in bowel or bladder movements, abdominal pain. Hospital course: She was admitted along the lines of acute worsening of heart failure and was treated with diuresis, pain control, Zofran. During her stay, her BNP was elevated, chest x-ray revealed pulmonary vascular infiltrates and strict I&O was maintained. Her home medications were reconciled. Her vitals stabilized and symptoms improved eventually. She is stable for discharge, we will continue follow with PCP and Cardiology as outpatient. Conditions managed during hospital stay: Acute exacerbation of HFrEF (EF 10%) Pleural effusion Continue atorvastatin, losartan, spironolactone, Entresto, furosemide History of HIV, AIDS, on antivirals and prophylaxis Chronic insomnia Immunocompromised state History of recurrent pneumonia Microcytic, microchromic anemia, due to ALAYNA Reactive thrombocytosis Hypertension, ruled out on history History of polysubstance abuse Mild to moderate Protein calorie malnutrition Sinus tachycardia Discharge plan: Please follow-up with PCP in 1 week. Please follow with Cardiology outpatient. Please continue home medications as per EHR Condition at Discharge: Stable Final Diagnosis/Problems List Acute exacerbation of HFrEF (EF 10%) Pleural effusion Continue atorvastatin, losartan, spironolactone, Entresto, furosemide History of HIV, AIDS, on antivirals and prophylaxis Chronic insomnia Immunocompromised state History of recurrent pneumonia Microcytic, microchromic anemia, due to ALAYNA Reactive thrombocytosis Hypertension, ruled out on history History of polysubstance abuse Mild to moderate Protein calorie malnutrition Sinus tachycardia Discharge Disposition: Home Discharge Instruct/Medications Diet: Cardiac 2g Na,low cholest Activity: No Restrictions, As Tolerated Follow Up/Referral: PCP within 7 days 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 Medications: As per EHR Scheduled Aspirin (Aspirin Low Dose), 81 MG PO DAILY Atorvastatin Calcium (Atorvastatin Calcium), 40 MG PO HS Carvedilol (Coreg), 3.125 MG PO Q12HR Famotidine (Famotidine), 1 TAB PO BID, (Reported) Furosemide (Lasix), 1 TAB PO DAILY Losartan Potassium (Losartan Potassium), 1 TAB PO DAILY, (Reported) Metoprolol Succinate (Metoprolol Succinate Er), 1 TAB PO DAILY, (Reported) Nitrofurantoin (Nitrofurantoin), 1 CAP PO BID Sacubitril-Valsartan (Entresto 24-26 mg), 0.5 TAB PO BID Spironolactone (Aldactone), 25 MG PO DAILY Miscellaneous Medications Fluconazole (Fluconazole), (Reported) Discharge Statement: "Patient was advised to return to the ER or call 911 if any headaches, dizziness, shortness of breath, chest pain, abdominal pain, bleeding, fevers, or worsening of medical condition. Patient was counseled about treatment plan, medications, possible side effects, patientverbalized understanding. All questions were answered to the best of my ability. This discharge took greater then 30 minutes in planning, reviewing documentation, counseling the patient, and discussing with other team members." ASSESSMENT ASSESSMENT Assessment HFrEF Acute on chronic CHF AIDS on home medications Prophylaxis for lower CD4 Mild-Moderate Protein energy Malnutrition Date of Service: Oct 19, 2024 Billing Provider: SCOOTER CRAMER MD Common Visit Codes: [id number] DISCH DAY >30min TITI STRICKLAND RESIDENT Oct 19, 2024 13:58 SCOOTER CRAMER MD Oct 25, 2024 21:56
[2024-10-20] MEDS ORDERED: FUROSEMIDE 40 MG TAB PO SCH (10:00)
== END 2024-10-19 13:20 | disposition home or self-care (01) | DRG 194 ==
LOC: ER 18:23 → OVERFLOW 23:41 → CENTRAL 10-17 12:03
PROVIDERS: ADMIT Student in an Organized Health Care Education/Training Program; ATTEND Emergency Medicine
DX: I50.23 Acute on chronic systolic (congestive) heart failure (principal); D84.9 Immunodeficiency, unspecified; E44.0 Moderate protein-calorie malnutrition; D50.9 Iron deficiency anemia, unspecified; F20.9 Schizophrenia, unspecified; D75.838 Other thrombocytosis; F19.10 Other psychoactive substance abuse, uncomplicated; F41.9 Anxiety disorder, unspecified; R00.0 Tachycardia, unspecified; G47.00 Insomnia, unspecified; Z68.1 Body mass index [BMI] 19.9 or less, adult; Z91.199 Patient's noncompliance with other medical treatment and regimen due to unspecified reason; Z87.11 Personal history of peptic ulcer disease; Z88.6 Allergy status to analgesic agent
CPT/HCPCS: 36415; 71045; 71250; 80048; 80053; 80076; 80307; 81001; 83605; 83880; 84484; 84702; 85025; 85610; 85652; 85730; 86141; 86360; 87081; 93005; 99291; G0378; J1885; J2405

== ENCOUNTER 2024-11-17 06:04 | Inpatient (IN) | payer MEDICAID ==
[~2024-11-17] VITALS: Ht 177.8 cm; Wt 56.5 kg
[~2024-11-17 06:04] MED LIST changes: +FAMO-12 PO; +FLUC40SU7; +LOS25T PO; +METO25TA93 PO
--- NOTE | 2024-11-17 06:11 | ECG ---
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
--- NOTE | 2024-11-17 06:22 | ED.PDOC ---
History of Present Illness HPI Comments 44-year-old female presents here with generalized weakness x5 days. Patient states she has a history of CHF and she [facility] and not been taking her Lasix regularly as prescribed as she states that she only has a chance to shower at the wellness Center once a week and when she takes Lasix she ends up being on herself and unable to clean herself up. She states since then she feels with the fluid has overloaded in her system and she has decreased appetite even though when she tries to eat she is unable to eat very much. She states she has been starting to feel weak because of that. And recently over the last 4 5 days she has also developed a cough that is worsening and chest discomfort. She states the discomfort is in her chest and feels like there is tightness and pain throughout her body. Denies any fevers. Positive chills. No sick contacts. Chief Complaint: General Weakness Time Seen by MD: 07:10 Primary Care Provider: N/A Reviewed Notes: Medications, Allergies Allergies: Coded Allergies: Ibuprofen (Verified Allergy, Unknown, 01/03/14) Uncoded Allergies: NO KNOWN (Allergy, Unknown, 12/08/23) Home Meds Active Scripts Furosemide (Lasix) 20 Mg Tb, 1 TAB PO DAILY, #30 TAB 5 Refills Prov:ASAD RAY 09/30/24 Carvedilol (COREG) 3.125 Mg Tab, 3.125 MG PO Q12HR for 30 Days, #60 TAB Prov:ASAD RAY 09/30/24 Spironolactone (Aldactone) 25 Mg Tab, 25 MG PO DAILY for 30 Days, #30 TAB Prov:ASAD RAY 09/30/24 Sacubitril-Valsartan (Entresto 24-26 mg) 1 Tab Tab, 0.5 TAB PO BID for 30 Days, #30 TAB Prov:ASAD RAY 09/30/24 Atorvastatin Calcium (ATORVASTATIN CALCIUM) 20 Mg Tab, 40 MG PO HS for 30 Days, #60 TAB Prov:ASAD RAY 09/30/24 Aspirin (Aspirin Low Dose) 81 Mg Tab, 81 MG PO DAILY for 30 Days, #30 TAB Prov:ASAD RAY 09/30/24 Nitrofurantoin (Nitrofurantoin) 100 Mg Cap, 1 CAP PO BID for 7 Days, #14 CAP Prov:MICHAELKAHSMIRASAD RESIDENT 09/30/24 Reported Medications Famotidine (Famotidine) 20 Mg Tab, 1 TAB PO BID 10/17/24 Losartan Potassium (Losartan Potassium) 25 Mg Tab, 1 TAB PO DAILY 10/17/24 Metoprolol Succinate (Metoprolol Succinate Er) 25 Mg Tab, 1 TAB PO DAILY 10/17/24 Fluconazole (Fluconazole) 40 Mg/Ml [facility] 10/17/24 Information Source: Patient, Emergency Med Personnel Mode of Arrival: EMS Severity: Moderate Timing: Days Duration: Since onset Prehospital treatment: None Past Medical History PAST MEDICAL HISTORY: Anxiety, CHF, HIV, PUD, Schizophrenia Surgical History: Denies all surgeries SEWER PIPE OFFBEARER History: No Pertinent SEWER PIPE OFFBEARER History Family History Family History: No family hx of Cancer, No family hx of DM Social History Smoker: Non-Smoker Alcohol: Denies ETOH Use Drugs: Methamphetamine Lives In: Other Constitutional: reports: chills, weakness; denies: diaphoresis, fatigue, fever, malaise, sweats, others EENTM: denies: blurred vision, double vision, ear bleeding, ear discharge, ear drainage, ear pain, ear ringing, eye pain, eye redness, hearing loss, mouth pain, mouth swelling, nasal discharge, nose bleeding, nose congestion, nose pain, photophobia, tearing, throat pain, throat swelling, voice changes, others Respiratory: reports: cough; denies: hemoptysis, orthopnea, SOB at rest, shortness of breath, SOB with excertion, stridor, wheezing, others Cardiovascular: reports: chest pain; denies: dizzy spells, diaphoresis, Dyspnea on exertion, edema, irregular heart beat, left arm pain, lightheadedness, palpitations, PND, syncope, others Gastrointestinal: denies: abdomen distended, abdominal pain, blood streaked bowels, constipated, diarrhea, dysphagia, difficulty swallowing, hematemesis, melena, nausea, poor appetite, poor fluid intake, rectal bleeding, rectal pain, vomiting, others Genitourinary: denies: abnormal vagina bleeding, burning, dyspareunia, dysuria, flank pain, frequency, hematuria, incontinence, pain, , vagina discharge, urgency, others Neurological: reports: weakness; denies: dizziness, fainting, headache, left sided numbness, left sided weakness, numbness, paresthesia, pre-existing deficit, right sided numbness, right sided weakness, seizure, speech problems, tingling, tremors, others Musculoskeletal: reports: others (BLE swelling); denies: back pain, gout, joint pain, joint swelling, muscle pain, muscle stiffness, neck pain Integumetry: denies: bruises, change in color, change in hair/nails, dryness, laceration, lesions, lumps, rash, wounds, others Allergic/Immunocompromised: denies: Difficulty Healing, Frequent Infections, Hives, Itching, others Hematologic/Lymphatic: denies: anemia, blood clots, easy bleeding, easy bruising, swollen glands, others Endocrine: denies: excessive hunger, excessive sweating, excessive thirst, excessive urination, flushing, intolerance to cold, intolerance to heat, unexplained weight gain, unexplained weight loss, others Psychiatric: denies: anxiety, bipolar disorder, depression, hopeless, panic disorder, schizophrenia, sleepless, suicidal, others All Other Systems: Reviewed and Negative Physical Exam General Appearance: Mild Distress, Normal HEENT: Normal ENT Inspection, Pharynx Normal, TMs Normal Neck: Full Range of Motion, Non-Tender, Normal, Normal Inspection Respiratory: Chest Non-Tender, Lungs Clear, No Accessory Muscle Use, No Respiratory Distress, Other (Crackles to bilateral lung base) Cardiovascular: Normal Peripheral Pulses, Regular Rate/Rhythm, Other (2 to 3+ edema of bilateral lower extremities) Breast Exam: Deferred Gastrointestinal: No Organomegaly, Non Tender, No Pulsatile Mass, Normal Bowel Sounds, Soft Genitalia: Deferred Pelvic: Deferred Rectal: Deferred Extremities: No calf tenderness, Normal capillary refill, Normal inspection, Normal range of motion, Non-tender Musculoskeletal : Apperance: Normal Neurologic: Alert, internet developer II-XII nml as Tested, No Motor Deficits, Normal Affect, Normal Mood, No Sensory Deficits Cerebellar Function: Normal Reflexes: Normal Skin: Dry, Normal Color, Warm Lymphatic: No Adenopathy Was a procedure done? Was a procedure done?: No EKG EKG : Comments Rate of 93 sinus rhythm prolonged QT interval at 499 inverted T-waves in V6. Differential Dx Considerations may include: CHF exacerbation, pneumonia, I will try disturbance, dehydration, lack of nutrition X-Ray, Labs, Meds, VS Vital Signs Date Time Temp Pulse Resp B/P (MAP) Pulse Ox O2 Delivery O2 Flow Rate FiO2 11/17/24 13:11 98.7 100 18 113/75 (88) 98 98.7 11/17/24 09:29 91 18 95 Room Air* 0 21 11/17/24 09:17 97.1 91 18 117/80 (92) 95 97.1 11/17/24 09:17 91 18 95 Room Air 11/17/24 06:06 93 11/17/24 06:04 97.8 97 16 125/94 98 97.8 Lab Test 11/17/24 12:46 11/17/24 08:00 11/17/24 06:54 Range/Units Lactic Acid Level Pending 2.2 *H 0.4-2.0 mmol/L Troponin I High Sensitivity 22 23 </=34 ng/L White Blood Count 3.8 L 4.4-10.8 10^3/uL Red Blood Count 4.62 4.0-5.20 10^6/uL Hemoglobin 10.5 L 12.2-16.2 g/dL Hematocrit 34.0 L 36.0-46.0 % Mean Corpuscular Volume 73.5 L 80.0-100.0 fL Mean Corpuscular Hemoglobin 22.7 L 28.0-32.0 pg Mean Corpuscular Hemoglobin Concent 30.9 L 32.0-36.0 g/dL Red Cell Distribution Width 21.2 H 11.8-14.3 % Platelet Count 332 140-450 10^3/uL Mean Platelet Volume 7.5 6.9-10.8 fL Neutrophils (%) (Auto) 49.1 37.0-80.0 % Lymphocytes (%) (Auto) 39.3 10.0-50.0 % Monocytes (%) (Auto) 8.8 0.0-12.0 % Eosinophils (%) (Auto) 2.3 0.0-7.0 % Basophils (%) (Auto) 0.5 0.0-2.0 % Neutrophils # (Auto) 1.9 1.6-8.6 10 ^3/uL Lymphocytes # (Auto) 1.5 0.4-5.4 10 ^3/uL Monocytes # (Auto) 0.3 0-1.3 10 ^3/uL Eosinophils # (Auto) 0.1 0-0.8 10 ^3/uL Basophils # (Auto) 0 0-0.2 10 ^3/uL Nucleated Red Blood Cells 0.2 % Sodium Level 138 136-145 mmol/L Potassium Level 3.4 L 3.5-5.1 mmol/L Chloride Level 105 98-107 mmol/L Carbon Dioxide Level 22 20-31 mmol/L Anion Gap 11 5-15 Blood Urea Nitrogen 7 L 9-23 mg/dL Creatinine 0.85 0.550-1.02 mg/dL Glomerular Filtration Rate Calc 86 >90 mL/min BUN/Creatinine Ratio 8.2 L 10.0-20.0 Serum Glucose 75 74-106 mg/dL Calcium Level 8.4 L 8.7-10.4 mg/dL B-Type Natriuretic Peptide 1229.06 0-100 pg/mL Current Medications Medications (Trade) Dose Ordered Sig/Dilip Route Start Time Stop Time Status Last Admin Ceftriaxone Sodium 50 ml @ 100 mls/hr ONCE ONCE IV 11/17/24 07:30 11/17/24 07:59 DC 11/17/24 10:37 Azithromycin 250 ml @ 125 mls/hr ONCE ONCE IV 11/17/24 07:30 11/17/24 09:29 DC 11/17/24 11:54 [place] [address] Ph: [phone] DIAGNOSTIC IMAGING Diagnostic Imaging Report : [id number] Signed PATIENT: LILLIAN RAMIREZ ACCT: [id number] UNIT: [id number] : 1980 LOC: ER ROOM / BED: / AGE / SEX: 44 / F ADM STATUS: REG ER SERVICE 06 ORDERING PHYSICIAN: EDA LARKIN MD PROCEDURE(s): CXR2 - CHEST TWO VIEWS ROUTINE REASON: Chest pain ORDER NUMBER(s): [id number], ACCESSION NUMBER(s): [id number] XY CHEST TWO VIEWS ROUTINE CLINICAL HISTORY: Chest pain COMPARISON: CT CHEST WITHOUT CONTRAST on DOS: 10/18/24, XY CHEST PORTABLE on DOS: 10/16/24, XR CHEST 1 VIEW on DOS: 10/06/24, XY CHEST PORTABLE on DOS: 09/27/24, XR CHEST 2 VIEWS on DOS: 08/07/24, XY CHEST PORTABLE on DOS: 10/16/24 TECHNIQUE: Single frontal view of the chest was obtained FINDINGS: Lines and Tubes: None Lungs: pulmonary vascular congestion. No significant change in the right pleural effusion. Pleura: small right pleural effusion No pneumothorax. Cardiomediastinal contours: Stable cardiomegaly Bones: No acute osseous abnormality. IMPRESSION: 1. Stable cardiomegaly. 2. pulmonary vascular persistent infiltrate or atelectasis in the right base. ATED BY: JEFF PHILIPPE MD DICTATED DATE/TIME: 11/17/24655 SIGNED BY: JEFF PHILIPPE MD SIGNED DATE/TIME: 11/17/24655 CC: 44-year-old female presents here with generalized weakness, chest discomfort, cough and fluid overload. Patient has a known history of CHF but has not been able to take her Lasix regularly. Since then this is led to decreased appetite, and increased weakness, with increased chest discomfort now and worsening cough. On examination she has 2 to 3+ pitting edema bilateral lower extremities and crackles in her lungs. Suspect likely CHF exacerbation. I have written for Lasix IV. Additionally I had ordered a chest x-ray which has returned which demonstrates stable cardiomegaly and also pulmonary vascular persistent inf iltrate and atelectasis in the right lung base. Given her recent cough suspect likely pneumonia. I have started her on azithromycin and Rocephin IV. Blood cultures and lactic acid has been drawn. I am unable to give her a 30 cc/kilos bolus due to her CHF status. And current fluid overload. I have ordered additional labs that are pending including a CBC BMP, BNP troponin. CBC BMP within normal limits. Troponin is negative. BNP is elevated at 1200. Lactic acid has returned at 2.2. However patient unable to tolerate 30 cc/kilos bolus due to her CHF exacerbation. At this time hospitalist team has been contacted for admission. Time of 1ST Reevaluation: 07:40 Reevaluation 1ST: Unchanged Patient Education/Counseling: Diagnosis, Treatment Family Education/Counseling: No Family Present SEPSIS Sepsis Screen Date sepsis recognized/suspect: Nov 17, 2024 Time Sepsis recognized/suspect: 0604 Recent Procedure: No On Antibiotic Therapy: No Respiratory Rate >20: No Heart Rate >90: No Temp<36 C (96.8 F) or >38.3 C: No SBP <90 or MAP <65 mmHG: No New Acute Mental Status Change: No Is the patient on CPAP, BIPAP,: No Physician Orders Urinalysis (11/17/24 06:26) Chest Two Views Routine (11/17/24 06:26) Blood Culture (11/17/24 07:16) Vital Signs Date Time Temp Pulse Resp B/P (MAP) Pulse Ox O2 Delivery O2 Flow Rate FiO2 11/17/24 13:11 98.7 100 18 113/75 (88) 98 98.7 11/17/24 09:29 91 18 95 Room Air* 0 21 11/17/24 09:17 97.1 91 18 117/80 (92) 95 97.1 11/17/24 09:17 91 18 95 Room Air 11/17/24 06:06 93 11/17/24 06:04 97.8 97 16 125/94 98 97.8 Laboratory Tests Test 11/17/24 06:54 11/17/24 08:00 11/17/24 12:46 White Blood Count 3.8 10^3/uL (4.4-10.8) L Lactic Acid Level 2.2 mmol/L (0.4-2.0) *H Pending Medications Medications Dose Ordered Sig/Dilip Route Start Time Stop Time Status Last Admin Dose Admin Azithromycin 250 ml @ 125 mls/hr ONCE ONCE IV 11/17/24 07:30 11/17/24 09:29 DC 11/17/24 11:54 Ceftriaxone Sodium 50 ml @ 100 mls/hr ONCE ONCE IV 11/17/24 07:30 11/17/24 07:59 DC 11/17/24 10:37 Departure 1 Departure Time of Disposition: 07:22 Impression: Primary Impression: CHF exacerbation Qualified Codes: I50.9 - Heart failure, unspecified Additional Impression: Pneumonia Qualified Codes: J18.9 - Pneumonia, unspecified organism Disposition: ADMITTED INPATIENT Condition: Fair Critical Care Note Critical Care Time?: No Stability Stability form required: No Heart Score Heart Score: Heart Score Response (Comments) Value History N/A 0 EKG N/A 0 Age N/A 0 Risk Factors N/A 0 Troponin N/A 0 Total 0 I personally scribed for FENSTER,AAKANKSHA M MD ([email or web address]) on 11/17/24 at 06:24. Electronically submitted by Mana Gtz ([email or web address]). I personally scribed for EDA LARKIN MD ([email or web address]) on 11/17/24 at 06:53. Electronically submitted by Mana Gtz ([email or web address]). I personally scribed for EDA LARKIN MD ([email or web address]) on 11/17/24 at 07:00. Electronically submitted by Mana Gtz ([email or web address]). I personally scribed for EDA LARKIN MD ([email or web address]) on 11/17/24 at 07:24. Electronically submitted by Mana Gtz ([email or web address]). EDA LARKIN MD Nov 17, 2024 06:21
--- NOTE | 2024-11-17 06:58 | DVH ---
XY CHEST TWO VIEWS ROUTINE CLINICAL HISTORY: Chest pain COMPARISON: CT CHEST WITHOUT CONTRAST on DOS: 10/18/24, XY CHEST PORTABLE on DOS: 10/16/24, XR CHEST 1 VIEW on DOS: 10/06/24, XY CHEST PORTABLE on DOS: 09/27/24, XR CHEST 2 VIEWS on DOS: 08/07/24, XY CHEST PO RTABLE on DOS: 10/16/24 TECHNIQUE: Single frontal view of the chest was obtained FINDINGS: Lines and Tubes: None Lungs: pulmonary vascular congestion. No significant change in the right pleural effusion. Pleura: small right pleural effusion No pneumothorax. Cardiomediastinal contours: Stable cardiomegaly Bones: No acute osseous abnormality. IMPRESSION: 1. Stable cardiomegaly. 2. pulmonary vascular persistent infiltrate or atelectasis in the right base.
[2024-11-17] MEDS: FUROSEMIDE 40 MG/4 ML VIAL IV ONE (07:30)
[2024-11-17 07:33] LABS: Hematocrit 34.0 % (36.0-46.0); Hemoglobin 10.5 g/dL (12.2-16.2); Mean Corpuscular Hemoglobin 22.7 pg (28.0-32.0); Mean Corpuscular Volume 73.5 fL (80.0-100.0); Nucleated Red Blood Cells % 0.2 %
[2024-11-17 07:38] LABS: Chloride 105 mmol/L (98-107); Sodium 138 mmol/L (136-145)
[2024-11-17 07:39] LABS: Anion Gap 11 (5-15); Carbon Dioxide 22 mmol/L (20-31)
[2024-11-17 07:44] LABS: BUN/Creatinine Ratio 8.2 (10.0-20.0); Blood Urea Nitrogen 7 mg/dL (9-23); Calcium 8.4 mg/dL (8.7-10.4); Glucose 75 mg/dL (74-106); Potassium 3.4 mmol/L (3.5-5.1)
[2024-11-17 09:29] VITALS: PULSE 91; RESP 18; O2SAT 95
[2024-11-17 09:34] LABS: Lactic Acid w/Reflex 2.2 mmol/L (0.4-2.0)
[2024-11-17] MEDS: AZITHROMYCIN 500MG/ 250ML 250 ML IV ONE (11:54)
--- NOTE | 2024-11-17 13:31 | DVHHP2 ---
History of Present Illness Reason for Visit: Chest pain History of Present Illness Tierney Connor is a 44-year-old female with past medical history of anxiety, CHF, HIV, PUD, and schizophrenia who presents to the ED with chest pain and bilateral lower extremity pain with swelling x3 days. Patient endorses that the chest pain is 10/10 constant and sharp. She states that there are no alleviating or triggering factors. She also states that it is difficult for her to wear her sandals that she has been having bilateral feet pain due to the swelling. Patient also endorses that she uses meth. Patient denies any recent travels, recent trauma or injury, recent sick contacts, recent ingestion of spoiled food, shortness of breath, fever, chills, lightheadedness, weakness, dizziness, abdominal pain, nausea, vomiting, diarrhea, or urinary symptoms. Patient endorses that she did not went out want to take the Lasix here in the ER because she said that she would have to go use he restroom and does not want to use the facilities here in the ER. Patient reports that she stays at the [facility]. Cardiovascular: CHF GI: Peptic Ulcer disease Psych: Anxiety, Schizophrenia Infectious disease: HIV Past Surgical History: None Family History: None Smoke: No ALCOHOL: none Drugs: Other (Meth) Lives: Other (Recuperative care) Domestic Violence: Neg Review of Systems Cardiovascular: Chest Pain Musculoskeletal: foot pain Allergies: Coded Allergies: Ibuprofen (Verified Allergy, Unknown, 01/03/14) Uncoded Allergies: NO KNOWN (Allergy, Unknown, 12/08/23) Exam Vital Signs Vital Signs Date Time Temp Pulse Resp B/P (MAP) Pulse Ox O2 Delivery O2 Flow Rate FiO2 11/17/24 13:11 98.7 100 18 113/75 (88) 98 98.7 11/17/24 09:29 Room Air* 0 21 General Appearance: Alert, Oriented X3, Cooperative, No acute distress HEENT: Atraumatic, PERRLA, EOMI, Mucous membr. moist/pink Respiratory: Clear to auscultation, Normal air movement Cardiovascular: Regular rate, Normal S1, Normal S2, No murmurs Abdominal: Normal bowel sounds, Soft Extremities: Normal pulses Skin: No significant lesion Neuro: Normal speech, Strength at 5/5 X4 ext, Normal tone, Sensation intact Psych/Mental Status: Mental status NL, Mood NL Labs/Xrays Labs Test 11/17/24 12:46 11/17/24 06:54 Range/Units Troponin I High Sensitivity 22 </=34 ng/L White Blood Count 3.8 L 4.4-10.8 10^3/uL Red Blood Count 4.62 4.0-5.20 10^6/uL Hemoglobin 10.5 L 12.2-16.2 g/dL Hematocrit 34.0 L 36.0-46.0 % Mean Corpuscular Volume 73.5 L 80.0-100.0 fL Mean Corpuscular Hemoglobin 22.7 L 28.0-32.0 pg Mean Corpuscular Hemoglobin Concent 30.9 L 32.0-36.0 g/dL Red Cell Distribution Width 21.2 H 11.8-14.3 % Platelet Count 332 140-450 10^3/uL Mean Platelet Volume 7.5 6.9-10.8 fL Neutrophils (%) (Auto) 49.1 37.0-80.0 % Lymphocytes (%) (Auto) 39.3 10.0-50.0 % Monocytes (%) (Auto) 8.8 0.0-12.0 % Eosinophils (%) (Auto) 2.3 0.0-7.0 % Basophils (%) (Auto) 0.5 0.0-2.0 % Neutrophils # (Auto) 1.9 1.6-8.6 10 ^3/uL Lymphocytes # (Auto) 1.5 0.4-5.4 10 ^3/uL Monocytes # (Auto) 0.3 0-1.3 10 ^3/uL Eosinophils # (Auto) 0.1 0-0.8 10 ^3/uL Basophils # (Auto) 0 0-0.2 10 ^3/uL Nucleated Red Blood Cells 0.2 % Sodium Level 138 136-145 mmol/L Potassium Level 3.4 L 3.5-5.1 mmol/L Chloride Level 105 98-107 mmol/L Carbon Dioxide Level 22 20-31 mmol/L Anion Gap 11 5-15 Blood Urea Nitrogen 7 L 9-23 mg/dL Creatinine 0.85 0.550-1.02 mg/dL Glomerular Filtration Rate Calc 86 >90 mL/min BUN/Creatinine Ratio 8.2 L 10.0-20.0 Serum Glucose 75 74-106 mg/dL Calcium Level 8.4 L 8.7-10.4 mg/dL B-Type Natriuretic Peptide 1229.06 0-100 pg/mL Technique: Real-time ultrasound imaging, with color Doppler and compression of the bilateral common femoral vein, femoral vein, greater saphenous vein, and popliteal vein. Indication: r/o dvt Comparison: CV VENOUS DOPPLER EXTREM BILAT on DOS: 10/06/24 Findings: There is normal compressibility and flow augmentation in all of the imaged deep veins. There are no filling defects. Impression: No evidence of DVT in the lower extremities XY CHEST TWO VIEWS ROUTINE CLINICAL HISTORY: Chest pain COMPARISON: CT CHEST WITHOUT CONTRAST on DOS: 10/18/24, XY CHEST PORTABLE on DOS: 10/16/24, XR CHEST 1 VIEW on DOS: 10/06/24, XY CHEST PORTABLE on DOS: 09/27/24, XR CHEST 2 VIEWS on DOS: 08/07/24, XY CHEST PORTABLE on DOS: 10/16/24 TECHNIQUE: Single frontal view of the chest was obtained FINDINGS: Lines and Tubes: None Lungs: pulmonary vascular congestion. No significant change in the right pleural effusion. Pleura: small right pleural effusion No pneumothorax. Cardiomediastinal contours: Stable cardiomegaly Bones: No acute osseous abnormality. IMPRESSION: 1. Stable cardiomegaly. 2. pulmonary vascular persistent infiltrate or atelectasis in the right base. SEPSIS Sepsis Screen Date sepsis recognized/suspect: Nov 17, 2024 Time Sepsis recognized/suspect: 06 Recent Procedure: No On Antibiotic Therapy: No Respiratory Rate >20: No Heart Rate >90: No Temp<36 C (96.8 F) or >38.3 C: No SBP <90 or MAP <65 mmHG: No New Acute Mental Status Change: No Is the patient on CPAP, BIPAP,: No Physician Orders Urinalysis (11/17/24 06:26) Chest Two Views Routine (11/17/24 06:26) Blood Culture (11/17/24 07:16) Vital Signs Date Time Temp Pulse Resp B/P (MAP) Pulse Ox O2 Delivery O2 Flow Rate FiO2 11/17/24 13:11 98.7 100 18 113/75 (88) 98 98.7 11/17/24 09:29 91 18 95 Room Air* 0 21 11/17/24 09:17 97.1 91 18 117/80 (92) 95 97.1 11/17/24 09:17 91 18 95 Room Air 11/17/24 06:06 93 11/17/24 06:04 97.8 97 16 125/94 98 97.8 Laboratory Tests Test 11/17/24 06:54 11/17/24 08:00 11/17/24 12:46 White Blood Count 3.8 10^3/uL (4.4-10.8) L Lactic Acid Level 2.2 mmol/L (0.4-2.0) *H Pending Medications Medications Dose Ordered Sig/Dilip Route Start Time Stop Time Status Last Admin Dose Admin Azithromycin 250 ml @ 125 mls/hr ONCE ONCE IV 11/17/24 07:30 11/17/24 09:29 DC 11/17/24 11:54 125 MLS/HR Ceftriaxone Sodium 50 ml @ 100 mls/hr ONCE ONCE IV 11/17/24 07:30 11/17/24 07:59 DC 11/17/24 10:37 100 MLS/HR Assessment/Plan Assessment/Plan Assessment Chest pain Lactic acidosis likely sepsis Cardiomegaly Hypokalemia Meth use Atelectasis versus pulmonary infiltrates History of systolic heart failure, HFrEF 18% History of CHF History of anxiety History HIV History of PUD History of schizophrenia Medication noncompliance Plan Admit to tele GDMT for HF Aspirin + statin Bilateral lower extremity venous ultrasound ordered to rule out DVT Replete lytes IV antibiotics-ceftriaxone Lactic level noted Diurese Blood cultures Chest x-ray UA BNP Last echo on 09/28/2024 EF 18% Troponin noted negative x2 EKG ACS workup Strict I&Os Daily weight Diet Home medications reconciled DVT prophylaxis-SCDs PUD prophylaxis-PPIs Discussed plan of care with patient and nurse Cardiology consult Counseled patient on cessation of meth use [id number] Behavior change smoking greater than 10 minutes about use of other options also gave option of nicotine patch [id number] Preventive counseling healthy eating habits, physical activity, and regular checkups 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
[2024-11-17] MEDS: POTASSIUM CHL 20 Meq TABLET PO ONE (13:45)
[2024-11-17] MEDS ORDERED: ONDANSETRON HCL 4 MG/2 ML VIAL IV PRN (15:00)
[2024-11-17] MEDS ORDERED: MORPHINE SULFATE INJ 2 MG/ml SYRG IV PRN (15:00)
[2024-11-17] MEDS ORDERED: ACETAMINOPHEN 325 MG TAB PO PRN (15:00)
[2024-11-17] MEDS ORDERED: NITROGLYCERIN 0.4 MG SL TAB SL PRN ×2 (15:00)
--- NOTE | 2024-11-17 15:35 | DVH ---
Technique: Real-time ultrasound imaging, with color Doppler and compression of the bilateral common femoral vein, femoral vein, greater saphenous vein, and popliteal vein. Indication: r/o dvt Comparison: CV VENOUS DOPPLER EXTREM BILAT on DOS: 10/06/24 Findings: There is normal compressibility and flow augmentation in all of the imaged deep veins. There are no f illing defects. Impression: No evidence of DVT in the lower extremities
[2024-11-17] MEDS ORDERED: ATORVASTATIN 20 MG TAB PO SCH (22:00)
[2024-11-17] MEDS ORDERED: CARVEDILOL 3.125 MG TAB PO SCH (22:00)
[2024-11-17] MEDS: FAMOTIDINE 20 MG TAB PO SCH (23:09)
[2024-11-17] MEDS: SACUBITRIL-VALSARTAN 24mg/26mg TAB PO SCH (23:09)
[2024-11-17] MEDS: ATORVASTATIN 20 MG TAB PO SCH (23:09)
[2024-11-18] MEDS: MORPHINE SULFATE 4 MG/ML SYR/VIAL IV PRN (00:59)
[2024-11-18 01:26] VITALS: BP 116/81; PULSE 110; RESP 18; TEMP 98.2; O2SAT 98
[2024-11-18 04:20] LABS: Hematocrit 30.5 % (36.0-46.0)
[2024-11-18 04:23] LABS: Hemoglobin 9.6 g/dL (12.2-16.2); Mean Corpuscular Hemoglobin 22.6 pg (28.0-32.0); Mean Corpuscular Volume 72.0 fL (80.0-100.0); Nucleated Red Blood Cells % 0.4 %
[2024-11-18 04:26] LABS: Potassium 3.5 mmol/L (3.5-5.1); Sodium 139 mmol/L (136-145)
[2024-11-18 04:27] LABS: Anion Gap 9 (5-15); Carbon Dioxide 23 mmol/L (20-31)
[2024-11-18 04:29] LABS: Calcium 7.9 mg/dL (8.7-10.4); Chloride 107 mmol/L (98-107)
[2024-11-18 04:32] LABS: BUN/Creatinine Ratio 12.3 (10.0-20.0); Blood Urea Nitrogen 9 mg/dL (9-23); Glucose 103 mg/dL (74-106); Magnesium 1.9 mg/dL (1.6-2.6); Triglycerides 84 mg/dL (< 150)
[2024-11-18 04:34] LABS: Cholesterol 99 mg/dL (< 200)
[2024-11-18 04:40] LABS: HDL Cholesterol 18 mg/dL (40-59)
--- NOTE | 2024-11-18 09:27 | DVHINCON2 ---
Date Seen: Nov 18, 2024 Referring Physician DERICK Queen Reason for Consultation Chest pain, low EF History of Present Illness 44-year-old female with a history of end-stage cardiomyopathy (EF 18%), HIV, schizophrenia, anxiety, tobacco and amphetamine use, and medication noncompliance presents to the ED with generalized weakness. She reports that she has not been taking her prescribed Lasix because it causes her to urinate too frequently. She was initially diagnosed with CHF at [facility] in May 2024 and does not follow up with a etcher apprentice. She denies chest pain, diaphoresis, or syncope. A 12 lead EKG in the ED shows sinus rhythm with prolonged QT interval Past Medical History As stated in HPI Past Surgical History Denies Family History: Diabetes mellitus G8 MOTHER Hypertension G8 MOTHER Family History Reviewed, non-contributory to the management of this case. Social History Tobacco and amphetamine use Allergies: Coded Allergies: Ibuprofen (Verified Allergy, Unknown, 01/03/14) Uncoded Allergies: NO KNOWN (Allergy, Unknown, 12/08/23) Home Meds Active Scripts Furosemide (Lasix) 20 Mg Tb, 1 TAB PO DAILY, #30 TAB 5 Refills Prov:ASAD RAY 09/30/24 Carvedilol (COREG) 3.125 Mg Tab, 3.125 MG PO Q12HR for 30 Days, #60 TAB Prov:ASAD RAY 09/30/24 Spironolactone (Aldactone) 25 Mg Tab, 25 MG PO DAILY for 30 Days, #30 TAB Prov:ASAD RAY 09/30/24 Sacubitril-Valsartan (Entresto 24-26 mg) 1 Tab Tab, 0.5 TAB PO BID for 30 Days, #30 TAB Prov:ASAD RAY 09/30/24 Atorvastatin Calcium (ATORVASTATIN CALCIUM) 20 Mg Tab, 40 MG PO HS for 30 Days, #60 TAB Prov:ASAD RAY 09/30/24 Aspirin (Aspirin Low Dose) 81 Mg Tab, 81 MG PO DAILY for 30 Days, #30 TAB Prov:ASAD RAY 09/30/24 Nitrofurantoin (Nitrofurantoin) 100 Mg Cap, 1 CAP PO BID for 7 Days, #14 CAP Prov:ASAD RAY 09/30/24 Reported Medications Famotidine (Famotidine) 20 Mg Tab, 1 TAB PO BID 10/17/24 Losartan Potassium (Losartan Potassium) 25 Mg Tab, 1 TAB PO DAILY 10/17/24 Metoprolol Succinate (Metoprolol Succinate Er) 25 Mg Tab, 1 TAB PO DAILY 10/17/24 Fluconazole (Fluconazole) 40 Mg/Ml [place] 10/17/24 Current Medications Current Medications Medications (Trade) Dose Ordered Sig/Dilip Route PRN Reason Start Time Stop Time Status Last Admin Ceftriaxone Sodium 50 ml @ 100 mls/hr DAILY@09 IV 11/18/24 09:00 Furosemide (Lasix Injection) 40 mg DAILY IV 11/18/24 10:00 Aspirin (Ecotrin Enteric Coated Tablet) 81 mg DAILY PO 11/18/24 10:00 11/17/24 15:06 DC Atorvastatin Calcium (Lipitor) 40 mg HS PO 11/17/24 22:00 11/17/24 15:05 DC Carvedilol (Coreg Tablet) 3.125 mg Q12HR PO 11/17/24 22:00 11/17/24 15:09 DC Famotidine (Pepcid Tablet) 20 mg BID PO 11/17/24 22:00 11/17/24 23:09 Losartan Potassium (Cozaar Tablet) 25 mg DAILY PO 11/18/24 10:00 11/17/24 13:36 DC Sacubitril/ Valsartan (Entresto 24-26 Mg tab) 0.5 tab BID PO 11/17/24 22:00 11/17/24 23:09 Metoprolol Succinate (Toprol Xl) 25 mg DAILY PO 11/18/24 10:00 Aspirin 81 mg DAILY PO 11/18/24 10:00 Atorvastatin Calcium (Lipitor) 40 mg HS PO 11/17/24 22:00 11/17/24 23:09 Morphine Sulfate 2 mg Q30MP PRN IV FOR CHEST PAIN 11/17/24 15:00 11/18/24 00:59 Acetaminophen (Tylenol Tablet) 650 mg Q6HP PRN PO MILD PAIN (1-3 PAIN SCALE) 11/17/24 15:00 Nitroglycerin (Ntrostat Sublingual) 0.4 mg Q5MINP PRN SL FOR CHEST PAIN 11/17/24 15:00 Ondansetron HCl (Zofran) 4 mg Q4HP PRN IV NAUSEA / VOMITING 11/17/24 15:00 Nitroglycerin (Ntrostat Sublingual) 0.4 mg Q5MINP PRN SL FOR CHEST PAIN 11/17/24 15:00 11/17/24 15:06 DC Morphine Sulfate 2 mg Q30M PRN IV FOR CHEST PAIN 11/17/24 15:00 11/17/24 15:06 DC Review of Systems Constitutional: Generalized weakness Ears, Nose, & Throat: No symptom reported Eyes: No symptom reported Neurological: No symptoms reported Pulmonary/Respiratory: No symptom reported Cardiovascular: Bilateral lower extremity edema Gastrointestinal: No symptom reported Genitourinary: No symptom reported Musculoskeletal: No symptom reported Skin: No symptom reported Psychiatric: No symptom reported Endocrine: No symptom reported Hemotologic/Lymphatic: No symptom reported Vital Signs Vital Signs Date Time Temp Pulse Resp B/P (MAP) Pulse Ox O2 Delivery O2 Flow Rate FiO2 11/18/24 08:00 100 11/18/24 02:30 22 103/76 (85) 100 11/18/24 01:26 98.2 98.2 11/17/24 09:29 Room Air* 0 21 Physical Exam INITIAL VITAL SIGNS: Reviewed by me GENERAL: Alert and interactive. No acute distress. HEAD: Head is normocephalic and atraumatic. EYES: EOMI, PERRL. No scleral icterus. No conjunctival injection. ENT: Moist mucous membranes. NECK: Supple, No masses, Full range of motion. RESPIRATORY: No tachypnea. Diminished lung sounds CV: Regular rate and rhythm. Dyspnea on exertion. Bilateral lower extremity + 2 pitting edema GI/: Active bowel sounds, soft, nondistended, nontender. No guarding. No rebound. No masses. No CVA tenderness. INTEGUMENTARY: Warm and dry. No obvious rashes. NEUROLOGIC: Alert and oriented. Face is symmetric. Speech is normal. Moves all extremities equally. Labs/Diagnostic Data Labs Test 11/18/24 03:39 11/17/24 12:46 11/17/24 06:54 Range/Units White Blood Count 3.9 L 4.4-10.8 10^3/uL Red Blood Count 4.24 4.0-5.20 10^6/uL Hemoglobin 9.6 L 12.2-16.2 g/dL Hematocrit 30.5 #L 36.0-46.0 % Mean Corpuscular Volume 72.0 L 80.0-100.0 fL Mean Corpuscular Hemoglobin 22.6 L 28.0-32.0 pg Mean Corpuscular Hemoglobin Concent 31.3 L 32.0-36.0 g/dL Red Cell Distribution Width 20.4 H 11.8-14.3 % Platelet Count 246 140-450 10^3/uL Mean Platelet Volume 7.5 6.9-10.8 fL Neutrophils (%) (Auto) 55.5 37.0-80.0 % Lymphocytes (%) (Auto) 30.0 10.0-50.0 % Monocytes (%) (Auto) 10.8 0.0-12.0 % Eosinophils (%) (Auto) 2.8 0.0-7.0 % Basophils (%) (Auto) 0.9 0.0-2.0 % Neutrophils # (Auto) 2.1 1.6-8.6 10 ^3/uL Lymphocytes # (Auto) 1.2 0.4-5.4 10 ^3/uL Monocytes # (Auto) 0.4 0-1.3 10 ^3/uL Eosinophils # (Auto) 0.1 0-0.8 10 ^3/uL Basophils # (Auto) 0 0-0.2 10 ^3/uL Nucleated Red Blood Cells 0.4 % Sodium Level 139 136-145 mmol/L Potassium Level 3.5 3.5-5.1 mmol/L Chloride Level 107 98-107 mmol/L Carbon Dioxide Level 23 20-31 mmol/L Anion Gap 9 5-15 Blood Urea Nitrogen 9 9-23 mg/dL Creatinine 0.73 0.550-1.02 mg/dL Glomerular Filtration Rate Calc 103 >90 mL/min BUN/Creatinine Ratio 12.3 10.0-20.0 Serum Glucose 103 74-106 mg/dL Calcium Level 7.9 L 8.7-10.4 mg/dL Magnesium Level 1.9 1.6-2.6 mg/dL Troponin I High Sensitivity 20 </=34 ng/L Triglycerides Level 84 < 150 mg/dL Cholesterol Level 99 < 200 mg/dL LDL Cholesterol 71 < 100 mg/dL HDL Cholesterol 18 L 40-59 mg/dL Lactic Acid Level 2.4 *H 0.4-2.0 mmol/L Thyroid Stimulating Hormone (TSH) 1.20 0.55-4.78 uIU/mL Hemoglobin A1c 6.6 H <5.7 % A1C B-Type Natriuretic Peptide 1229.06 0-100 pg/mL Microbiology Date/Time Source Procedure Growth Status 11/17/24 08:15 Blood Blood Culture - Preliminary NO GROWTH AFTER 24 HOURS OF INCUBATION. Resulted PROCEDURE(s): CXR2 - CHEST TWO VIEWS ROUTINE REASON: Chest pain ORDER NUMBER(s): [id number], ACCESSION NUMBER(s): [id number] CHEST TWO VIEWS ROUTINE CLINICAL HISTORY: Chest pain COMPARISON: CT CHEST WITHOUT CONTRAST on DOS: 10/18/24, XY CHEST PORTABLE on DOS: 10/16/24, XR CHEST 1 VIEW on DOS: 10/06/24, XY CHEST PORTABLE on DOS: 09/27/24, XR CHEST 2 VIEWS on DOS: 08/07/24, XY CHEST PORTABLE on DOS: 10/16/24 TECHNIQUE: Single frontal view of the chest was obtained FINDINGS: Lines and Tubes: None Lungs: pulmonary vascular congestion. No significant change in the right pleural effusion. Pleura: small right pleural effusion No pneumothorax. Cardiomediastinal contours: Stable cardiomegaly Bones: No acute osseous abnormality. IMPRESSION: 1. Stable cardiomegaly. 2. pulmonary vascular persistent infiltrate or atelectasis in the right base. Assessment Acute on chronic decompensated HFrEF, NYHA class III End-stage cardiomyopathy Pulmonary vascular congestion, right lower base Hypokalemia History of AIDS/HIV Methamphetamine use Tobacco use Medical noncompliance Plan/Recommendation ( ): * Resume GDMT for HFrEF as tolerated * Reinforced diuretic adherence, monitor urine output and volume status * Telemetry monitoring for arrhythmias given prolonged QT * Monitor electrolytes and replete as needed * Strict I & O, daily weights, 2 g sodium and fluid restriction * Recommend social work professor involvement for finance assistant with follow-up and compliance * Highly recommend to follow-up with Cardiology in outpatient setting This medical document was created using an electronic medical record system with voice recognition software and computerized dictation system. Although this document has been carefully reviewed, there might still be some phonetic and typographical errors. Occasional wrong-word or ``sound-alike substitutions may have occurred due to the inherent limitations of voice recognition software. These areas are purely typographical due to imperfections of the software programs and do not reflect any compromise in the patient's medical care. Please read the chart carefully and recognize, using context, where these substitutions have occurred. Plan discussed with: Patient Plan discussed with: Patient NYHA Physical activity limitations: Class3(Marked) ordinary Date of Service: Nov 18, 2024 Billing Provider: TAMMI SIMS MD Cardiology Common Codes: CONSULT ONLY Cardiology Consultation Codes: [id number] CONSULT <45MIN ADITHYA VEGA CENTRAL OFFICE REPAIRER SUPERVISOR Nov 18, 2024 09:27
[2024-11-18] MEDS: METOPROLOL SUCCINATE XL 50 MG TAB PO SCH (10:00)
[2024-11-18] MEDS ORDERED: ASPirin-EC 81 mg tab PO SCH (10:00)
[2024-11-18] MEDS ORDERED: LOSARTAN POTASSIUM 25 MG TAB PO SCH (10:00)
[2024-11-18] MEDS: FUROSEMIDE 40 MG/4 ML VIAL IV SCH (10:52)
[2024-11-18 14:43] LABS: Urine Protein, UAD Negative (Negative)
[2024-11-18 15:26] LABS: Opiate Scree,Urine Neg (NEGATIVE)
[2024-11-18 15:27] LABS: Amphetamine Screen, Urine Pos (NEGATIVE); Barbiturate Scree,Urine Neg (NEGATIVE); Benzodiazephine Screen, Urine Neg (NEGATIVE); Cannabinoid Screen, Urine Neg (NEGATIVE); Cocaine Screen, Urine Neg (NEGATIVE); Phencyclidine Screen, Urine Neg (NEGATIVE)
[2024-11-18] MEDS: HYDROcodone-ACET 5/325MG TAB PO ONE (15:52)
[2024-11-18 17:00] VITALS: BP 86/61; PULSE 90; RESP 21; TEMP 98.7; O2SAT 97
--- NOTE | 2024-11-18 17:44 | DVHPN2 ---
Subjective looking rested/c/o chest pain- always- chronic/denies any pressure like pain Changes from previous H/P or p: No Changes Cardiovascular: Chest Pain Musculoskeletal: foot pain Objective Vitals Vital Signs Date Time Temp Pulse Resp B/P (MAP) Pulse Ox O2 Delivery O2 Flow Rate FiO2 11/18/24 17:00 98.7 90 21 86/61 (69) 97 98.7 11/17/24 09:29 Room Air* 0 21 Intake/Output Intake and Output 11/18/24 07:00 Intake Total 100 ml Balance 100 ml Intake Oral 0 ml IV Total 100 ml General Appearance: Alert, Oriented X3, Cooperative, No acute distress Lungs: Clear to auscultation, Normal air movement Cardiovascular: Regular rate, Normal S1, Normal S2, No murmurs Abdomen: Normal bowel sounds, Soft, No tenderness, No hepatospenomegaly Neuro: Normal gait, Normal speech, Strength at 5/5 X4 ext, Normal tone, S ensation intact, Cranial nerves 3-12 NL Psych/Mental Status: Mental status NL, Mood NL Medications Current Medications Medications Dose Ordered Sig/Dilip Route Start Time Stop Time Status Last Admin Dose Admin Ceftriaxone Sodium 50 ml @ 100 mls/hr DAILY@09 IV 11/18/24 09:00 11/18/24 09:00 100 MLS/HR Furosemide 40 mg DAILY IV 11/18/24 10:00 11/18/24 10:52 40 MG Famotidine 20 mg BID PO 11/17/24 22:00 11/18/24 10:51 20 MG Sacubitril/ Valsartan 0.5 tab BID PO 11/17/24 22:00 11/18/24 10:51 0.5 TAB Metoprolol Succinate 25 mg DAILY PO 11/18/24 10:00 11/18/24 10:00 25 MG Aspirin 81 mg DAILY PO 11/18/24 10:00 11/18/24 10:51 81 MG Atorvastatin Calcium 40 mg HS PO 11/17/24 22:00 11/17/24 23:09 40 MG Acetaminophen 650 mg Q6HP PRN PO 11/17/24 15:00 Nitroglycerin 0.4 mg Q5MINP PRN SL 11/17/24 15:00 Ondansetron HCl 4 mg Q4HP PRN IV 11/17/24 15:00 Laboratory Results Laboratory Tests 11/18/24 03:39 Chemistry Test 11/18/24 03:39 Calcium Level 7.9 mg/dL (8.7-10.4) L Magnesium Level 1.9 mg/dL (1.6-2.6) Lipid panel Test 11/18/24 03:39 Cholesterol Level 99 mg/dL (< 200) HDL Cholesterol 18 mg/dL (40-59) L Triglycerides Level 84 mg/dL (< 150) Urinalysis Test 11/17/24 06:26 Urine Color Light-yellow (Yellow) Urine Clarity Clear (Clear) Urine pH 6.5 (5.0-9.0) Urine Specific [place] 1.008 (1.001-1.035) Urine Protein Negative (Negative) Urine Ketones Negative (Negative) Urine Blood Negative /uL (Negative) Urine Nitrite Negative (Negative) Urine Bilirubin Negative (Negative) Urine Urobilinogen Normal mg/dL (Negative) Urine Leukocyte Esterase Negative /uL (Negative) Urine RBC <1 /hpf (0 - 4) Urine Microscopic WBC 1 /HPF (0-5) Urine Squamous Epithelial Cells Few /hpf (<5) Urine Bacteria Few /hpf (None Seen) H Urine Glucose Normal mg/dL (Normal) Microbiology Microbiology Date/Time Source Procedure Growth Status 11/17/24 08:15 Blood Blood Culture - Preliminary NO GROWTH AFTER 24 HOURS OF INCUBATION. 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
[2024-11-18 17:45] VITALS: O2SAT 95
[2024-11-18 17:48] VITALS: BP 101/65
[2024-11-18 20:00] VITALS: PULSE 86; PULSE 91; RESP 17
[2024-11-18 21:00] VITALS: BP 109/86; PULSE 91; RESP 17; TEMP 98.6; O2SAT 97
--- NOTE | 2024-11-18 23:10 | DVHINCON2 ---
Date Seen: Nov 18, 2024 Referring Physician DERICK Jeff Reason for Consultation Chest pain, low EF History of Present Illness This is a 44-year-old female with a past medical history of end-stage cardiomyopathy (EF 18%), HIV, schizophrenia, anxiety, tobacco and amphetamine use, and medication noncompliance presents to the ED with complaints of generalized weakness.She reports that she has not been taking her prescribed Lasix because it causes her to urinate too frequently. She was initially diagnosed with CHF at [facility] in May 2024 and does not follow up with a enterprise infrastructure architect. She denies chest pain, diaphoresis, or syncope. A 12 lead EKG in the ED shows sinus rhythm with prolonged QT interval. HGB 9.6, HCT 30.5, LA 2.4, CA 7.9. Chest x-ray showed stable cardiomegaly, pulmonary vascular persistent infiltrate or atelectasis in the right base. Patient was admitted to the hospital. I am asked to consult on this patient. Past Medical History As stated in HPI Past Surgical History Denies Family History: Diabetes mellitus G8 MOTHER Hypertension G8 MOTHER Allergies: Coded Allergies: Ibuprofen (Verified Allergy, Unknown, 01/03/14) Home Meds Active Scripts Furosemide (Lasix) 20 Mg Tb, 1 TAB PO DAILY, #30 TAB 5 Refills Prov:ASAD RAY 09/30/24 Carvedilol (COREG) 3.125 Mg Tab, 3.125 MG PO Q12HR for 30 Days, #60 TAB Prov:ASAD RAY 09/30/24 Spironolactone (Aldactone) 25 Mg Tab, 25 MG PO DAILY for 30 Days, #30 TAB Prov:ASAD RAY 09/30/24 Sacubitril-Valsartan (Entresto 24-26 mg) 1 Tab Tab, 0.5 TAB PO BID for 30 Days, #30 TAB Prov:ASAD RAY 09/30/24 Atorvastatin Calcium (ATORVASTATIN CALCIUM) 20 Mg Tab, 40 MG PO HS for 30 Days, #60 TAB Prov:ASAD RAY 09/30/24 Aspirin (Aspirin Low Dose) 81 Mg Tab, 81 MG PO DAILY for 30 Days, #30 TAB Prov:ASAD RAY 09/30/24 Nitrofurantoin (Nitrofurantoin) 100 Mg Cap, 1 CAP PO BID for 7 Days, #14 CAP Prov:ASAD RAY RESIDENT 09/30/24 Reported Medications Famotidine (Famotidine) 20 Mg Tab, 1 TAB PO BID 10/17/24 Losartan Potassium (Losartan Potassium) 25 Mg Tab, 1 TAB PO DAILY 10/17/24 Metoprolol Succinate (Metoprolol Succinate Er) 25 Mg Tab, 1 TAB PO DAILY 10/17/24 Fluconazole (Fluconazole) 40 Mg/Ml [place] 10/17/24 Current Medications Current Medications Medications (Trade) Dose Ordered Sig/Dilip Route PRN Reason Start Time Stop Time Status Last Admin Ceftriaxone Sodium 50 ml @ 100 mls/hr DAILY@09 IV 11/18/24 09:00 11/18/24 09:00 Furosemide (Lasix Injection) 40 mg DAILY IV 11/18/24 10:00 11/18/24 10:52 Aspirin (Ecotrin Enteric Coated Tablet) 81 mg DAILY PO 11/18/24 10:00 11/17/24 15:06 DC Atorvastatin Calcium (Lipitor) 40 mg HS PO 11/17/24 22:00 11/17/24 15:05 DC Carvedilol (Coreg Tablet) 3.125 mg Q12HR PO 11/17/24 22:00 11/17/24 15:09 DC Famotidine (Pepcid Tablet) 20 mg BID PO 11/17/24 22:00 11/18/24 10:51 Losartan Potassium (Cozaar Tablet) 25 mg DAILY PO 11/18/24 10:00 11/17/24 13:36 DC Sacubitril/ Valsartan (Entresto 24-26 Mg tab) 0.5 tab BID PO 11/17/24 22:00 11/18/24 10:51 Metoprolol Succinate (Toprol Xl) 25 mg DAILY PO 11/18/24 10:00 11/18/24 10:00 Aspirin 81 mg DAILY PO 11/18/24 10:00 11/18/24 10:51 Atorvastatin Calcium (Lipitor) 40 mg HS PO 11/17/24 22:00 11/17/24 23:09 Morphine Sulfate 2 mg Q30MP PRN IV FOR CHEST PAIN 11/17/24 15:00 11/18/24 13:54 DC 11/18/24 00:59 Acetaminophen (Tylenol Tablet) 650 mg Q6HP PRN PO MILD PAIN (1-3 PAIN SCALE) 11/17/24 15:00 Nitroglycerin (Ntrostat Sublingual) 0.4 mg Q5MINP PRN SL FOR CHEST PAIN 11/17/24 15:00 Ondansetron HCl (Zofran) 4 mg Q4HP PRN IV NAUSEA / VOMITING 11/17/24 15:00 Nitroglycerin (Ntrostat Sublingual) 0.4 mg Q5MINP PRN SL FOR CHEST PAIN 11/17/24 15:00 11/17/24 15:06 DC Morphine Sulfate 2 mg Q30M PRN IV FOR CHEST PAIN 11/17/24 15:00 11/17/24 15:06 DC Review of Systems Constitutional: Generalized weakness Ears, Nose, & Throat: No symptom reported Eyes: No symptom reported Neurological: No symptoms reported Pulmonary/Respiratory: No symptom reported Cardiovascular: Bilateral lower extremity edema Gastrointestinal: No symptom reported Genitourinary: No symptom reported Musculoskeletal: No symptom reported Skin: No symptom reported Psychiatric: No symptom reported Endocrine: No symptom reported Hemotologic/Lymphatic: No symptom reported Vital Signs Vital Signs Date Time Temp Pulse Resp B/P (MAP) Pulse Ox O2 Delivery O2 Flow Rate FiO2 11/18/24 13:30 98.1 84 19 122/58 (79) 93 98.1 11/17/24 09:29 Room Air* 0 21 Physical Exam GENERAL: Alert and oriented x 3. No acute distress. EYES: PERRL, EOMI. Anicteric. HENT: Moist mucous membranes. LUNGS: Diminished lung sounds. CARDIOVASCULAR: Regular rate and rhythm. ABDOMEN: Soft, nontender and nondistended. EXTREMITIES: 2+ BLE edema. NEUROLOGIC: No focal neurological deficits. SKIN: Warm, dry. Labs/Diagnostic Data Labs Test 11/18/24 03:39 11/17/24 12:46 11/17/24 06:54 Range/Units White Blood Count 3.9 L 4.4-10.8 10^3/uL Red Blood Count 4.24 4.0-5.20 10^6/uL Hemoglobin 9.6 L 12.2-16.2 g/dL Hematocrit 30.5 #L 36.0-46.0 % Mean Corpuscular Volume 72.0 L 80.0-100.0 fL Mean Corpuscular Hemoglobin 22.6 L 28.0-32.0 pg Mean Corpuscular Hemoglobin Concent 31.3 L 32.0-36.0 g/dL Red Cell Distribution Width 20.4 H 11.8-14.3 % Platelet Count 246 140-450 10^3/uL Mean Platelet Volume 7.5 6.9-10.8 fL Neutrophils (%) (Auto) 55.5 37.0-80.0 % Lymphocytes (%) (Auto) 30.0 10.0-50.0 % Monocytes (%) (Auto) 10.8 0.0-12.0 % Eosinophils (%) (Auto) 2.8 0.0-7.0 % Basophils (%) (Auto) 0.9 0.0-2.0 % Neutrophils # (Auto) 2.1 1.6-8.6 10 ^3/uL Lymphocytes # (Auto) 1.2 0.4-5.4 10 ^3/uL Monocytes # (Auto) 0.4 0-1.3 10 ^3/uL Eosinophils # (Auto) 0.1 0-0.8 10 ^3/uL Basophils # (Auto) 0 0-0.2 10 ^3/uL Nucleated Red Blood Cells 0.4 % Sodium Level 139 136-145 mmol/L Potassium Level 3.5 3.5-5.1 mmol/L Chloride Level 107 98-107 mmol/L Carbon Dioxide Level 23 20-31 mmol/L Anion Gap 9 5-15 Blood Urea Nitrogen 9 9-23 mg/dL Creatinine 0.73 0.550-1.02 mg/dL Glomerular Filtration Rate Calc 103 >90 mL/min BUN/Creatinine Ratio 12.3 10.0-20.0 Serum Glucose 103 74-106 mg/dL Calcium Level 7.9 L 8.7-10.4 mg/dL Magnesium Level 1.9 1.6-2.6 mg/dL Troponin I High Sensitivity 20 </=34 ng/L Triglycerides Level 84 < 150 mg/dL Cholesterol Level 99 < 200 mg/dL LDL Cholesterol 71 < 100 mg/dL HDL Cholesterol 18 L 40-59 mg/dL Lactic Acid Level 2.4 *H 0.4-2.0 mmol/L Thyroid Stimulating Hormone (TSH) 1.20 0.55-4.78 uIU/mL Hemoglobin A1c 6.6 H <5.7 % A1C B-Type Natriuretic Peptide 1229.06 0-100 pg/mL Microbiology Date/Time Source Procedure Growth Status 11/17/24 08:15 Blood Blood Culture - Preliminary NO GROWTH AFTER 24 HOURS OF INCUBATION. Resulted Assessment Acute on chronic decompensated HFrEF, NYHA class III. End-stage cardiomyopathy. Pulmonary vascular congestion, right lower base. Hypokalemia. History of AIDS/HIV. Methamphetamine use. Tobacco use. Medical noncompliance. Plan/Recommendation I agree with your ongoing assessment and care of plan. Patient has been seen by Aaliyah Altamirano NP on my behalf, her and I discussed the plan with the patient. Resume GDMT for HFrEF as tolerated. Reinforced diuretic adherence, monitor urine output and volume status. Telemetry monitoring for arrhythmias given prolonged QT. Monitor electrolytes and replete as needed. Strict I & O, daily weights, 2 g sodium and fluid restriction. Recommend social work faculty member involvement for assistant front desk manager with follow-up and compliance. Highly recommend to follow-up with Cardiology in outpatient setting. Additional plan as per the hospital course. Plan discussed with: Patient NYHA Physical activity limitations: Class3(Marked) ordinary Date of Service: Nov 18, 2024 Billing Provider: TAMMI SIMS MD Cardiology Common Codes: 55088-[id number] INP/OBS CARE (High) Cardiology Consultation Codes: [id number] CONSULT <45MIN TAMMI SIMS MD Nov 18, 2024 14:34
[2024-11-19 01:00] VITALS: BP 110/87; PULSE 101; RESP 18; TEMP 98.2; O2SAT 100
[2024-11-19] MEDS: HYDROcodone-ACET 5/325MG TAB PO PRN (02:15)
[2024-11-19 05:00] VITALS: BP 119/87; PULSE 96; RESP 16; TEMP 98.3; O2SAT 97
[2024-11-19 08:43] VITALS: BP 104/81; PULSE 86; RESP 16; TEMP 97.8; O2SAT 97
[2024-11-19 12:51] VITALS: BP 93/69; PULSE 90; RESP 17; TEMP 98.2; O2SAT 100
--- NOTE | 2024-11-19 13:49 | DVHDS2 ---
Discharge Summary Date of Admission Nov 17, 2024 at 14:52 Date of Discharge: Nov 19, 2024 Labs/Diagnostic Data: Laboratory Results Test 11/18/24 03:39 11/17/24 13:28 11/17/24 12:46 11/17/24 06:54 White Blood Count 3.9 10^3/uL (4.4-10.8) Red Blood Count 4.24 10^6/uL (4.0-5.20) Hemoglobin 9.6 g/dL (12.2-16.2) Hematocrit 30.5 % (36.0-46.0) Mean Corpuscular Volume 72.0 fL (80.0-100.0) Mean Corpuscular Hemoglobin 22.6 pg (28.0-32.0) Mean Corpuscular Hemoglobin Concent 31.3 g/dL (32.0-36.0) Red Cell Distribution Width 20.4 % (11.8-14.3) Platelet Count 246 10^3/uL (140-450) Mean Platelet Volume 7.5 fL (6.9-10.8) Neutrophils (%) (Auto) 55.5 % (37.0-80.0) Lymphocytes (%) (Auto) 30.0 % (10.0-50.0) Monocytes (%) (Auto) 10.8 % (0.0-12.0) Eosinophils (%) (Auto) 2.8 % (0.0-7.0) Basophils (%) (Auto) 0.9 % (0.0-2.0) Neutrophils # (Auto) 2.1 10 ^3/uL (1.6-8.6) Lymphocytes # (Auto) 1.2 10 ^3/uL (0.4-5.4) Monocytes # (Auto) 0.4 10 ^3/uL (0-1.3) Eosinophils # (Auto) 0.1 10 ^3/uL (0-0.8) Basophils # (Auto) 0 10 ^3/uL (0-0.2) Nucleated Red Blood Cells 0.4 % Sodium Level 139 mmol/L (136-145) Potassium Level 3.5 mmol/L (3.5-5.1) Chloride Level 107 mmol/L (98-107) Carbon Dioxide Level 23 mmol/L (20-31) Anion Gap 9 (5-15) Blood Urea Nitrogen 9 mg/dL (9-23) Creatinine 0.73 mg/dL (0.550-1.02) Glomerular Filtration Rate Calc 103 mL/min (>90) BUN/Creatinine Ratio 12.3 (10.0-20.0) Serum Glucose 103 mg/dL (74-106) Calcium Level 7.9 mg/dL (8.7-10.4) Magnesium Level 1.9 mg/dL (1.6-2.6) Troponin I High Sensitivity 20 ng/L (</=34) Triglycerides Level 84 mg/dL (< 150) Cholesterol Level 99 mg/dL (< 200) LDL Cholesterol 71 mg/dL (< 100) HDL Cholesterol 18 mg/dL (40-59) Urine Opiates Screen Neg (NEGATIVE) Urine Fentanyl Screen Neg (NEGATIVE) Urine Barbiturates Screen Neg (NEGATIVE) Urine Phencyclidine Screen Neg (NEGATIVE) Urine Amphetamines Screen Pos (NEGATIVE) Urine Benzodiazepines Screen Neg (NEGATIVE) Urine Cocaine Screen Neg (NEGATIVE) Urine Cannabinoids Screen Neg (NEGATIVE) Lactic Acid Level 2.4 mmol/L (0.4-2.0) Thyroid Stimulating Hormone (TSH) 1.20 uIU/mL (0.55-4.78) Hemoglobin A1c 6.6 % A1C (<5.7) B-Type Natriuretic Peptide 1229.06 pg/mL (0-100) Free Thyroxine (T4) Calculated 1.36 ng/dL (0.89-1.76) Test 11/17/24 06:26 Urine Color Light-yellow (Yellow) Urine Clarity Clear (Clear) Urine pH 6.5 (5.0-9.0) Urine Specific [place] 1.008 (1.001-1.035) Urine Protein Negative (Negative) Urine Ketones Negative (Negative) Urine Blood Negative /uL (Negative) Urine Nitrite Negative (Negative) Urine Bilirubin Negative (Negative) Urine Urobilinogen Normal mg/dL (Negative) Urine Leukocyte Esterase Negative /uL (Negative) Urine RBC <1 /hpf (0 - 4) Urine Microscopic WBC 1 /HPF (0-5) Urine Squamous Epithelial Cells Few /hpf (<5) Urine Bacteria Few /hpf (None Seen) Urine Glucose Normal mg/dL (Normal) Other Laboratory Tests 11/18/24 03:39 Brief Hx & Hospital Course: Tierney Connor is a 44-year-old female with past medical history of anxiety, CHF, HIV, PUD, and schizophrenia who presents to the ED with chest pain and bilateral lower extremity pain with swelling x3 days. Patient endorses that the chest pain is 10/10 constant and sharp. She states that there are no alleviating or triggering factors. She also states that it is difficult for her to wear her sandals that she has been having bilateral feet pain due to the swelling. Patient also endorses that she uses meth. Patient denies any recent travels, recent trauma or injury, recent sick contacts, recent ingestion of spoiled food, shortness of breath, fever, chills, lightheadedness, weakness, dizziness, abdominal pain, nausea, vomiting, diarrhea, or urinary symptoms. Patient UDS positive for meth, has anemia microcytic, UDS positive for meth, BNP elevated, chest x-ray with diffuse reticular opacities concerning for pulmonary vascular congestion. Admitted for CHF exacerbation. Started on Lasix, continued HFrEF medications. 11/19: Patient appears euvolemic. Doing well. Has a cough, concerning for community-acquired pneumonia. Patient will need outpatient antibiotics. Very important for patient to follow up with the primary metal or wood blocker/get referral, follow up with PCP. Had a conversation with patient to see addiction psychiatrist. Diagnosis: CHF, in exacerbation, systolic dysfunction Chest pain, likely drug related and/or stable angina Drug-induced cardiomyopathy Right lower lobe pneumonia Drug withdrawal, resolved History of methamphetamine use, ongoing plan: Take azithromycin 500 mg daily for 5 days, Stopped taking metoprolol, nitrofurantoin, fluconazole Continue taking other home meds (aspirin 81 daily, Lipitor 20 daily, Coreg 3.125 mg twice daily, Pepcid 20 mg twice daily, Lasix 20 daily, losartan 25 mg daily, Entresto half tablet twice daily, spironolactone 25 mg daily, Follow up PCP, get referral for Cardiology, get referral for Psychiatry Condition at Discharge: Guarded Final Diagnosis/Problems List CHF, in exacerbation, systolic dysfunction Chest pain, likely drug related and/or stable angina Drug-induced cardiomyopathy Right lower lobe pneumonia Drug withdrawal, resolved History of methamphetamine use, ongoing Discharge Disposition: Home Discharge Instruct/Medications Scheduled Aspirin (Aspirin Low Dose), 81 MG PO DAILY Atorvastatin Calcium (Atorvastatin Calcium), 40 MG PO HS Carvedilol (Coreg), 3.125 MG PO Q12HR Famotidine (Famotidine), 1 TAB PO BID, (Reported) Furosemide (Lasix), 1 TAB PO DAILY Losartan Potassium (Losartan Potassium), 1 TAB PO DAILY, (Reported) Metoprolol Succinate (Metoprolol Succinate Er), 1 TAB PO DAILY, (Reported) Nitrofurantoin (Nitrofurantoin), 1 CAP PO BID Sacubitril-Valsartan (Entresto 24-26 mg), 0.5 TAB PO BID Spironolactone (Aldactone), 25 MG PO DAILY Miscellaneous Medications Fluconazole (Fluconazole), (Reported) Discharge Statement: "Patient was advised to return to the ER or call 911 if any headaches, dizziness, shortness of breath, chest pain, abdominal pain, bleeding, fevers, or worsening of medical condition. Patient was counseled about treatment plan, medications, possible side effects, patientverbalized understanding. All questions were answered to the best of my ability. This discharge took greater then 30 minutes in planning, reviewing documentation, counseling the patient, and discussing with other team members." ASSESSMENT ASSESSMENT Assessment Date of Service: Nov 19, 2024 Billing Provider: KELSEY SOLO MD Common Visit Codes: 30116-OXA/OBS DISCH DAY >30min KELSEY SOLO MD Nov 19, 2024 13:49
[2024-11-19] MEDS ORDERED: AZIT500T66 PO (15:45)
[2024-11-19] MEDS ORDERED: CARV-214 PO (15:45)
[2024-11-19] MEDS ORDERED: FURO1TAB33 PO (15:45)
[2024-11-19 16:42] VITALS: BP 109/84; PULSE 101; RESP 19; TEMP 97.3; O2SAT 99
[2024-11-19 16:55] VITALS: BP 104/81; PULSE 86; TEMP 36.3
--- NOTE | 2024-11-19 22:37 | DVHPN2 ---
Progress Note - Dictate Date Seen: Nov 19, 2024 Medical Necessity Reason Pt with a Central, PICC or Fol: No Subjective Patient was seen and evaluated in follow up. Patient has no new complaints at this time. Patient denies any cardiac symptoms. Patient is cardiac stable for discharge. Telemetry reviewed. vital signs Vital Sign Date Time Temp Pulse Resp B/P (MAP) Pulse Ox O2 Delivery O2 Flow Rate FiO2 11/19/24 16:55 36.3 86 11/19/24 16:42 19 109/84 (92) 99 11/19/24 07:47 Room Air* 0 21 Total Intake and Output 11/18/24 11/18/24 11/19/24 15:00 23:00 07:00 Intake Total 250 ml 460 ml Output Total 600 ml Balance 250 ml -140 ml objective GENERAL: Alert and oriented x 3. No acute distress. EYES: PERRL, EOMI. Anicteric. HENT: Moist mucous membranes. LUNGS: Diminished lung sounds. CARDIOVASCULAR: Regular rate and rhythm. ABDOMEN: Soft, nontender and nondistended. EXTREMITIES: 2+ BLE edema. NEUROLOGIC: No focal neurological deficits. SKIN: Warm, dry. laboratory and microbiology Laboratory Tests 11/18/24 03:39 Test 11/18/24 03:39 Range/Units Serum Glucose 103 74-106 mg/dL Problem List Acute on chronic decompensated HFrEF, NYHA class III. End-stage cardiomyopathy. Pulmonary vascular congestion, right lower base. Hypokalemia. History of AIDS/HIV. Methamphetamine use. Tobacco use. Medical noncompliance. Assessment/Plan Continued all current supportive medical care. Resume GDMT for HFrEF as tolerated. Monitor electrolytes and replete as needed. Strict I & O, daily weights, 2 g sodium and fluid restriction. Highly recommend to follow-up with Cardiology in outpatient setting. Additional plan as per the hospital course. Plan discussed with: Patient TAMMI SISM MD Nov 19, 2024 22:37
== END 2024-11-19 20:40 | disposition home or self-care (01) | DRG 871 ==
LOC: EDBD 06:04 → ER 06:09 → OVERFLOW 14:52 → TELE-EAST 11-18 16:19
PROVIDERS: ATTEND Student in an Organized Health Care Education/Training Program
DX: A41.9 Sepsis, unspecified organism (principal); I50.23 Acute on chronic systolic (congestive) heart failure; J15.9 Unspecified bacterial pneumonia; J15.69 Pneumonia due to other Gram-negative bacteria; E87.20 Acidosis, unspecified; J98.11 Atelectasis; I42.7 Cardiomyopathy due to drug and external agent; F19.239 Other psychoactive substance dependence with withdrawal, unspecified; I20.89 Other forms of angina pectoris; R73.9 Hyperglycemia, unspecified; E87.6 Hypokalemia; F15.10 Other stimulant abuse, uncomplicated; F41.9 Anxiety disorder, unspecified; F20.9 Schizophrenia, unspecified; D50.9 Iron deficiency anemia, unspecified; T50.995A Adverse effect of other drugs, medicaments and biological substances, initial encounter; Z88.6 Allergy status to analgesic agent; Z87.11 Personal history of peptic ulcer disease; Z91.148 Patient's other noncompliance with medication regimen for other reason; Z82.49 Family history of ischemic heart disease and other diseases of the circulatory system; Z83.3 Family history of diabetes mellitus; Y92.89 Other specified places as the place of occurrence of the external cause; Z79.82 Long term (current) use of aspirin; Z79.899 Other long term (current) drug therapy
CPT/HCPCS: 36415; 71046; 80048; 80061; 80307; 81001; 83036; 83605; 83735; 83880; 84439; 84443; 84484; 85025; 87040; 93005; 93970; 96365; G0378

== ENCOUNTER 2024-12-14 05:21 | Emergency (ER) | payer MEDICAID ==
[~2024-12-14] VITALS: Ht 177.8 cm; Wt 54.0 kg
[~2024-12-14 05:21] MED LIST changes: +AZIT500T66 PO; -FLUC40SU7; -METO25TA93 PO; -NITR-52 PO
--- NOTE | 2024-12-14 07:16 | ED.PDOC ---
History of Present Illness(SKN HPI Comments A 44 YEAR OLD FEMALE BROUGHT IN BY AMBULANCE PRESENTS TO THE ED WITH COMPLAINT OF SHINGLES RASH AND HEAD INJURY S/P FALL. PATIENT STATES SHE WAS DIAGNOSED WITH SHINGLES 4 DAYS AGO AND HAS HAD A PAINFUL RASH ON HER RIGHT UPPER BACK AND RIGHT ARM FOR THE PAST 4 DAYS. PATIENT ALSO NOTES THAT WHILE SHE WAS HERE IN THE ED SHE FELL ASLEEP CAUSING HER TO FALL FORWARD AND HIT THE LEFT SIDE OF HER HEAD. PATIENT REPORTS SHE NOW HAS A BRUISE TO THE LEFT SIDE OF HER HEAD AND WOULD LIKE TO BE EVALUATED FOR THIS WELL. PATIENT DENIES NECK INJURY, LOC, FEVER, CHILLS, SHORTNESS OF BREATH, CHEST PAIN, ABDOMINAL PAIN, NAUSEA, VOMITING, HEADACHE, OR OTHER COMPLAINTS. NO OTHER SYMPTOMS OR MODIFYING FACTORS AT THIS TIME. PATIENT IS ALERT, ORIENTED X 4, AND HAS STEADY GAIT. Chief Complaint: Rash Time Seen by MD: 06:47 Primary Care Provider: N/A History of Present Illness: Nurses Notes, Food Packer Notes, Medications, Allergies Allergies: Coded Allergies: Ibuprofen (Verified Allergy, Unknown, 01/03/14) Home Meds Active Scripts Azithromycin (Azithromycin) 500 Mg Tab, 1 TAB PO DAILY, #5 TAB Prov:KELSEY SOLO MD 11/19/24 Furosemide (Lasix) 20 Mg Tb, 1 TAB PO DAILY for 30 Days, #30 TAB 1 Refill Prov:KELSEY SOLO MD 11/19/24 Carvedilol (COREG) 3.125 Mg Tab, 3.125 MG PO Q12HR for 30 Days, #60 TAB 1 Refill Prov:KELSEY SOLO MD 11/19/24 Spironolactone (Aldactone) 25 Mg Tab, 25 MG PO DAILY for 30 Days, #30 TAB Prov:ASAD RAY 09/30/24 Sacubitril-Valsartan (Entresto 24-26 mg) 1 Tab Tab, 0.5 TAB PO BID for 30 Days, #30 TAB Prov:ASAD RAY 09/30/24 Atorvastatin Calcium (ATORVASTATIN CALCIUM) 20 Mg Tab, 40 MG PO HS for 30 Days, #60 TAB Prov:ASAD RAY 09/30/24 Aspirin (Aspirin Low Dose) 81 Mg Tab, 81 MG PO DAILY for 30 Days, #30 TAB Prov:ASAD RAY 09/30/24 Reported Medications Famotidine (Famotidine) 20 Mg Tab, 1 TAB PO BID 10/17/24 Losartan Potassium (Losartan Potassium) 25 Mg Tab, 1 TAB PO DAILY 10/17/24 Information Source: Patient, Emergency Med Personnel Mode of Arrival: EMS Severity: Moderate Timing: Days Duration: Since onset, Days Prehospital treatment: None Location: Arm (RIGHT ARM), Back (RIGHT UPPER BACK) Mechanism: Spontaneous Onset Developed: Rash Occurence: Indoors Object: None Condition of Object: None Retained Foreign Body: No Wound Type: None Immunization Status of Animal: NA Tetanus: Unknown History of: None Associated Signs and Symptoms: Redness, Pain Past Medical History PAST MEDICAL HISTORY: Anxiety, CHF, HIV, PUD, Schizophrenia Surgical History: Denies all surgeries DEBURRING TECHNICIAN History: No Pertinent DEBURRING TECHNICIAN History Family History Family History: Reviewed,noncontributory to illness, No family hx of Cancer, No family hx of DM Social History Smoker: Non-Smoker Alcohol: Denies ETOH Use Drugs: Methamphetamine Lives In: Home Constitutional: denies: chills, diaphoresis, fatigue, fever, malaise, sweats, weakness, others EENTM: denies: blurred vision, double vision, ear bleeding, ear discharge, ear drainage, ear pain, ear ringing, eye pain, eye redness, hearing loss, mouth pain, mouth swelling, nasal discharge, nose bleeding, nose congestion, nose pain, photophobia, tearing, throat pain, throat swelling, voice changes, others Respiratory: denies: cough, hemoptysis, orthopnea, SOB at rest, shortness of breath, SOB with excertion, stridor, wheezing, others Cardiovascular: denies: chest pain, dizzy spells, diaphoresis, Dyspnea on exertion, edema, irregular heart beat, left arm pain, lightheadedness, palpitations, PND, syncope, others Gastrointestinal: denies: abdomen distended, abdominal pain, blood streaked bowels, constipated, diarrhea, dysphagia, difficulty swallowing, hematemesis, melena, nausea, poor appetite, poor fluid intake, rectal bleeding, rectal pain, vomiting, others Genitourinary: denies: abnormal vagina bleeding, burning, dyspareunia, dysuria, flank pain, frequency, hematuria, incontinence, pain, , vagina discharge, urgency, others Neurological: reports: headache; denies: dizziness, fainting, left sided numbness, left sided weakness, numbness, paresthesia, pre-existing deficit, right sided numbness, right sided weakness, seizure, speech problems, tingling, tremors, weakness, others Musculoskeletal: denies: back pain, gout, joint pain, joint swelling, muscle pain, muscle stiffness, neck pain, others Integumetry: reports: rash (PAINFUL RASH OF RIGHT UPPER BACK AND RIGHT ARM); denies: bruises, change in color, change in hair/nails, dryness, laceration, lesions, lumps, wounds, others Allergic/Immunocompromised: denies: Difficulty Healing, Frequent Infections, Hives, Itching, others Hematologic/Lymphatic: denies: anemia, blood clots, easy bleeding, easy bruising, swollen glands, others Endocrine: denies: excessive hunger, excessive sweating, excessive thirst, excessive urination, flushing, intolerance to cold, intolerance to heat, unexplained weight gain, unexplained weight loss, others Psychiatric: denies: anxiety, bipolar disorder, depression, hopeless, panic disorder, schizophrenia, sleepless, suicidal, others All Other Systems: Reviewed and Negative Physical Exam General Appearance: No Apparent Distress, Normal HEENT: Head (LEFT FOREHEAD CONTUSION, NO BONY TENDERNESS AND DEFORMITY. ), Normal ENT Inspection, PERRL/EOMI, Pharynx Normal, TMs Normal Neck: Full Range of Motion, Non-Tender, Normal, Normal Inspection Respiratory: Chest Non-Tender, Lungs Clear, No Accessory Muscle Use, No Respiratory Distress, Normal Breath Sounds Cardiovascular: No Edema, No JVD, No Murmur, No Gallop, Normal Peripheral Pulses, Regular Rate/Rhythm Breast Exam: Deferred Gastrointestinal: No Organomegaly, Non Tender, No Pulsatile Mass, Normal Bowel Sounds, Soft Genitalia: Deferred Pelvic: Deferred Rectal: Deferred Extremities: No calf tenderness, Normal capillary refill, Normal inspection, Normal range of motion, Non-tender, No pedal edema Musculoskeletal : Apperance: Normal Neurologic: Alert, accelerator systems director II-XII nml as Tested, No Motor Deficits, Normal Affect, Normal Mood, No Sensory Deficits Cerebellar Function: Normal Reflexes: Normal Skin: Bruises (LEFT FOREHEAD. ), Dry, Normal Color, Rash (A GROUP OF ERYTHEMA AND VESICLE SKIN RASH ON RIGHT UPPER BACK TO RIGHT LATERAL UPPER EXTREMITY, NO PUS DRAINAGE AND SWELLING, +HERPES ZOSTER. ), Warm Peripheral Pulses: 2+ carotid (R), 2+ carotid (L), 2+ Radial (R), 2+ Radial (L) Lymphatic: No Adenopathy Was a procedure done? Was a procedure done?: No Differential Diagnosis (INTG) Differential Diagnosis: N/A Differential Diagnosis: Atopic dermatitis, Contact Dermatitis, Herpes Zoster/Simplex, Tinea, Urticaria Differential Diagnosis: N/A Abscess: N/A Differential Diagnosis: N/A X-Ray, Labs, Meds, VS Vital Signs Date Time Temp Pulse Resp B/P (MAP) Pulse Ox O2 Delivery O2 Flow Rate FiO2 12/14/24 05:21 98.2 110 16 114/67 97 98.2 Current Medications Medications (Trade) Dose Ordered Sig/Dilip Route Start Time Stop Time Status Last Admin Acetaminophen/ Hydrocodone Bitart ([place] 5/325MG Tab) 1 tab ONCE ONCE PO 12/14/24 07:15 12/14/24 07:16 DC 12/14/24 07:30 EXAM: CT HEAD WITHOUT CONTRAST INDICATION: FALL IN THE LOBBY TECHNIQUE: CT of the head without intravenous contrast. Coronal and sagittal reformatted images are submitted. Radiation Dose : 1. Head: CT Dose: CTDI volume is 48.7 mGy. Dose-length product is 843.4 mGy*cm The dose indicators for CT are the volume Computed Tomography (CT) Dose Index (CTDIvol) and the Dose Length Product (DLP), and are measured in units of mGy and mGy-cm, respectively. These indicators are not patient dose, but values generated from the CT scanner acquisition factors. The report includes radiation exposure data for exposures received during this examination. All CT scans at this medical facility are performed using dose modulation techniques as appropriate to a performed exam including the following: Automated exposure control was utilized; adjustment of the MA and/or KV according to patient size; and use of iterative reconstruction technique. COMPARISON: None FINDINGS: There is no evidence of acute intracranial hemorrhage, extra-axial collection, mass effect, midline shift, herniation or hydrocephalus. The ventricles, sulci and cisterns are age appropriate. The mancilla-white differentiation is intact. The visualized paranasal sinuses and mastoid air cells are clear. There are postsurgical changes in the in the left maxillary sinus. No depressed calvarial fracture. The surrounding soft tissues are unremarkable. IMPRESSION: 1. No evidence of acute intracranial abnormality. ATED BY: SHAYY MILIAN MD DICTATED DATE/TIME: 12/14/24742 SIGNED BY: SHAYY MILIAN MD SIGNED DATE/TIME: 12/14/24742 CC: X-Ray, Labs, Meds, VS Comment EXTERNAL MEDICAL RECORDS REVIEWED: [NONE] INDEPENDENT HISTORIANS: [NONE] SOCIAL DETERMINANTS OF HEALTH: [NONE] LABS ORDERED: NONE REVIEWED AND INTERPRETED RESULTS: NONE IMAGING ORDERED: CT BRAIN TREATMENTS ORDERED: [place] 5/325 MG P.O. PROCEDURES PERFORMED: NONE CRITICAL CARE TIME: NONE I HAVE DISCUSSED THE PATIENT WITH THE ATTENDING PHYSICIAN DR. CUMMINGS AND HE AGREES WITH THE PATIENT'S PLAN OF CARE AND DISPOSITION. BASED ON HISTORY OF PRESENT ILLNESS, AND PHYSICAL EXAM, PATIENT WILL BE DISCHARGED HOME. DISCUSSED PLAN FOR DISCHARGE HOME WITH RX [ACYCLOVIR, TRAMADOL, AND TRIAMCINOLONE CREAM]. MEDICATION WARNINGS GIVEN. SHARED DECISION MAKING: PATIENT INSTRUCTED TO FOLLOW UP WITH PRIMARY CARE PROVIDER IN 1-2 DAYS FOR RE-EVALUATION OF SYMPTOMS. PATIENT VERBALIZES UNDERSTANDING TO RETURN TO ED FOR NEW OR WORSENING SYMPTOMS OR IF FOLLOW UP WITH PCP CANNOT BE OBTAINED. PATIENT FEELS COMFORTABLE GOING HOME AT THIS TIME. ALL QUESTIONS ADDRESSED AT TIME OF DISCHARGE. Images Reviewed?: Images reviewed and evaluated by me Time of 1ST Reevaluation: 08:00 Reevaluation 1ST: Improved Patient Education/Counseling: Diagnosis, Treatment, Need For Follow Up Family Education/Counseling: Diagnosis, Treatment, Need For Follow Up Medical Screening: No EMC Exist At This Time SEPSIS Sepsis Screen Date sepsis recognized/suspect: Dec 14, 2024 Time Sepsis recognized/suspect: 520 Recent Procedure: No On Antibiotic Therapy: No Respiratory Rate >20: No Heart Rate >90: No Temp<36 C (96.8 F) or >38.3 C: No SBP <90 or MAP <65 mmHG: No New Acute Mental Status Change: No Is the patient on CPAP, BIPAP,: No Physician Orders Head Without Contrast (12/14/24 07:13) Vital Signs Date Time Temp Pulse Resp B/P (MAP) Pulse Ox O2 Delivery O2 Flow Rate FiO2 12/14/24 05:21 98.2 110 16 114/67 97 98.2 Medications Medications Dose Ordered Sig/Dilip Route Start Time Stop Time Status Last Admin Dose Admin Acetaminophen/ Hydrocodone Bitart 1 tab ONCE ONCE PO 12/14/24 07:15 12/14/24 07:16 DC 12/14/24 07:30 Departure 1 Departure Time of Disposition: 08:00 Impression: Primary Impression: Herpes zoster Qualified Codes: B02.9 - Zoster without complications Additional Impressions: Contusion of forehead Qualified Codes: S00.83XA - Contusion of other part of head, initial encounter Status post fall Disposition: 01 HOME / SELF CARE / HOMELESS Condition: Stable Additional Instructions: FOLLOW-UP WITH PCP IN 1 TO 2 DAYS. TAKE MEDICATIONS PRESCRIBED. RETURN TO ED FOR ANY NEW OR WORSENING SYMPTOMS. e-Prescriptions Tramadol HCl (Tramadol HCl) 50 Mg Tab 50 MG PO BID, #20 TAB Prov: FATIMAH OSORIO 12/14/24 Triamcinolone Acetonide (Triamcinolone Acetonide) 0.025 % Cre 1 APPLIC TOP BID, #30 GRAMS Prov: FATIMAH OSORIO 12/14/24 Acyclovir (Acyclovir) 800 Mg Tab 800 MG PO 5XD, #35 TAB Prov: FATIMAH OSORIO 12/14/24 Discharged With: Self, Relative Critical Care Note Critical Care Time?: No Stability Stability form required: No I personally scribed for FATIMAH OSORIO ([email or web address]) on 12/14/24 at 07:16. Electronically submitted by Ankush Gibbs ([email or web address]). I personally scribed for FATIMAH OSORIO ([email or web address]) on 12/14/24 at 07:53. Electronically submitted by Ankush Gibbs ([email or web address]). FATIMAH OSORIO Dec 14, 2024 07:16
[2024-12-14] MEDS: HYDROcodone-ACET 5/325MG TAB PO ONE (07:30)
--- NOTE | 2024-12-14 07:46 | DVH ---
EXAM: CT HEAD WITHOUT CONTRAST INDICATION: FALL IN THE LOBBY TECHNIQUE: CT of the head without intravenous contrast. Coronal and sagittal reformatted images are s ubmitted. Radiation Dose : 1. Head: CT Dose: CTDI volume is 48.7 mGy. Dose-length product is 843.4 mGy*cm The dose indicators for CT are the volume Computed Tomography (CT) Dose Index (CTDIvol) and the Dose Length Product (DLP), and are measured in units of mGy and mGy-cm, respectively. These indicators are not patient dose, but values generated from the CT scanner acquisition factors. The report includes radiation exposure data for exposures received during this examination. All CT scans at this medical facility are performed using dose modulation techniques as appropriate to a performed exam including the following: Automated exposure control was utilized; adjustment of the MA and/or KV according to patient size; and use of iterative reconstruction technique. COMPARISON: None FINDINGS: There is no evidence of acute intracranial hemorrhage, extra-axial collection, mass effect, midline s hift, herniation or hydrocephalus. The ventricles, sulci and cisterns are age appropriate. The mancilla-white differentiation is intact. The visualized paranasal sinuses and mastoid air cells are clear. There are postsurgical changes in the in the left maxillary sinus. No depressed calvarial fracture. The surrounding soft tissues are unremarkable. IMPRESSION: 1. No evidence of acute intracranial abnormality.
[2024-12-14] MEDS ORDERED: TRIA0.02 TOP (07:59)
[2024-12-14] MEDS ORDERED: ACYC1TAB3 PO (07:59)
[2024-12-14] MEDS ORDERED: TRAM-626 PO (07:59)
[2024-12-14 08:25] VITALS: BP 108/71; PULSE 112; RESP 18; TEMP 98; O2SAT 99
== END 2024-12-14 08:40 | disposition home or self-care (01) ==
LOC: EDBD 05:21 → ER 05:21
DX: S00.83XA Contusion of other part of head, initial encounter (principal); B02.9 Zoster without complications; F19.90 Other psychoactive substance use, unspecified, uncomplicated; F41.9 Anxiety disorder, unspecified; F20.9 Schizophrenia, unspecified; I50.9 Heart failure, unspecified; Z79.899 Other long term (current) drug therapy; Z88.6 Allergy status to analgesic agent; Z79.82 Long term (current) use of aspirin; Z87.11 Personal history of peptic ulcer disease; W19.XXXA Unspecified fall, initial encounter; Y93.89 Activity, other specified; Y92.89 Other specified places as the place of occurrence of the external cause; Y99.8 Other external cause status
CPT/HCPCS: 70450

== ENCOUNTER 2024-12-14 20:16 | Emergency (ER) | payer MEDICAID ==
[~2024-12-14] VITALS: Ht 177.8 cm; Wt 54.5 kg
[~2024-12-14 20:16] MED LIST changes: +ACYC1TAB3 PO; +TRAM-626 PO; +TRIA0.02 TOP
[2024-12-14 20:37] VITALS: BP 100/58; PULSE 121; RESP 28; TEMP 99.4; O2SAT 98
[2024-12-14] MEDS: HYDROcodone-ACET 10/325MG TAB PO ONE (22:36)
--- NOTE | 2024-12-14 22:51 | ED.PDOC ---
History of Present Illness(SKN HPI Comments This patient is a homeless 44-year-old female who arrives the ED today again for re-evaluation of rash concerns. Patient was seen this facility earlier today and diagnosed with shingles. [facility] a [facility] and states that the facility required she come back to the ED due to pain concerns. Patient states that she wants pain medication and has her prescriptions to be utilize as directed. Chief Complaint: Rash Time Seen by MD: 20:47 Primary Care Provider: N/A History of Present Illness: Nurses Notes Allergies: Coded Allergies: Ibuprofen (Verified Allergy, Unknown, 01/03/14) Home Meds Active Scripts Tramadol HCl (Tramadol HCl) 50 Mg Tab, 50 MG PO BID, #20 TAB Prov:FATIMAH OSORIO 12/14/24 Triamcinolone Acetonide (Triamcinolone Acetonide) 0.025 % Cre, 1 APPLIC TOP BID, #30 GRAMS Prov:FATIMAH OSORIO 12/14/24 Acyclovir (Acyclovir) 800 Mg Tab, 800 MG PO 5XD, #35 TAB Prov:FATIMAH OSORIO 12/14/24 Azithromycin (Azithromycin) 500 Mg Tab, 1 TAB PO DAILY, #5 TAB Prov:KELSEY SOLO MD 11/19/24 Furosemide (Lasix) 20 Mg Tb, 1 TAB PO DAILY for 30 Days, #30 TAB 1 Refill Prov:KELSEY SOLO MD 11/19/24 Carvedilol (COREG) 3.125 Mg Tab, 3.125 MG PO Q12HR for 30 Days, #60 TAB 1 Refill Prov:KELSEY SOLO MD 11/19/24 Spironolactone (Aldactone) 25 Mg Tab, 25 MG PO DAILY for 30 Days, #30 TAB Prov:ASAD RAY 09/30/24 Sacubitril-Valsartan (Entresto 24-26 mg) 1 Tab Tab, 0.5 TAB PO BID for 30 Days, #30 TAB Prov:ASAD RAY 09/30/24 Atorvastatin Calcium (ATORVASTATIN CALCIUM) 20 Mg Tab, 40 MG PO HS for 30 Days, #60 TAB Prov:ASAD RAY 09/30/24 Aspirin (Aspirin Low Dose) 81 Mg Tab, 81 MG PO DAILY for 30 Days, #30 TAB Prov:ASAD RAY RESIDENT 09/30/24 Reported Medications Famotidine (Famotidine) 20 Mg Tab, 1 TAB PO BID 10/17/24 Losartan Potassium (Losartan Potassium) 25 Mg Tab, 1 TAB PO DAILY 10/17/24 Information Source: Patient Mode of Arrival: Ambulatory Severity: Moderate Timing: Days Duration: Since onset Prehospital treatment: Treatment Location: Arm Mechanism: Spontaneous Onset Occurence: Indoors Tetanus: UTD Associated Signs and Symptoms: Redness Past Medical History PAST MEDICAL HISTORY: Anxiety, CHF, HIV, PUD, Schizophrenia Surgical History: Denies all surgeries WRECKER DRIVER History: No 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 WRECKER DRIVER History Family History Family History: Reviewed,noncontributory to illness, No family hx of Cancer, No family hx of DM Social History Smoker: Non-Smoker Alcohol: Denies ETOH Use Drugs: Methamphetamine Lives In: Home Constitutional: denies: chills, diaphoresis, fatigue, fever, malaise, sweats, weakness, others EENTM: denies: blurred vision, double vision, ear bleeding, ear discharge, ear drainage, ear pain, ear ringing, eye pain, eye redness, hearing loss, mouth pain, mouth swelling, nasal discharge, nose bleeding, nose congestion, nose pain, photophobia, tearing, throat pain, throat swelling, voice changes, others Respiratory: denies: cough, hemoptysis, orthopnea, SOB at rest, shortness of breath, SOB with excertion, stridor, wheezing, others Cardiovascular: denies: chest pain, dizzy spells, diaphoresis, Dyspnea on exertion, edema, irregular heart beat, left arm pain, lightheadedness, palpitations, PND, syncope, others Gastrointestinal: denies: abdomen distended, abdominal pain, blood streaked bowels, constipated, diarrhea, dysphagia, difficulty swallowing, hematemesis, melena, nausea, poor appetite, poor fluid intake, rectal bleeding, rectal pain, vomiting, others Genitourinary: denies: abnormal vagina bleeding, burning, dyspareunia, dysuria, flank pain, frequency, hematuria, incontinence, pain, , vagina discharge, urgency, others Neurological: denies: dizziness, fainting, headache, left sided numbness, left sided weakness, numbness, paresthesia, pre-existing deficit, right sided numb ness, right sided weakness, seizure, speech problems, tingling, tremors, weakness, others Musculoskeletal: denies: back pain, gout, joint pain, joint swelling, muscle pain, muscle stiffness, neck pain, others Integumetry: reports: others (Patient has shingles noted to the right arm.); denies: bruises, change in color, change in hair/nails, dryness, laceration, lesions, lumps, rash, wounds Allergic/Immunocompromised: denies: Difficulty Healing, Frequent Infections, Hives, Itching, others Hematologic/Lymphatic: denies: anemia, blood clots, easy bleeding, easy bruising, swollen glands, others Endocrine: denies: excessive hunger, excessive sweating, excessive thirst, excessive urination, flushing, intolerance to cold, intolerance to heat, unexplained weight gain, unexplained weight loss, others Psychiatric: denies: anxiety, bipolar disorder, depression, hopeless, panic disorder, schizophrenia, sleepless, suicidal, others Physical Exam General Appearance: Moderate Distress (Due to pain concerns. Patient was crying at time of evaluation. The patient appears to be in poor overall h ealth.), Thin HEENT: Normal ENT Inspection, Pharynx Normal, TMs Normal Neck: Full Range of Motion, Non-Tender, Normal, Normal Inspection Respiratory: Chest Non-Tender, Lungs Clear, No Accessory Muscle Use, No Respiratory Distress, Normal Breath Sounds Cardiovascular: No Edema, No JVD, No Murmur, No Gallop, Normal Peripheral Pulses, Regular Rate/Rhythm Breast Exam: Deferred Gastrointestinal: No Organomegaly, Non Tender, No Pulsatile Mass, Normal Bowel Sounds, Soft Genitalia: Deferred Pelvic: Deferred Rectal: Deferred Extremities: No calf tenderness, Normal inspection Neurologic: Alert Cerebellar Function: NOT DONE Reflexes: NOT DONE Skin: Other (Patient is a honey-crusted rash noted to her anterior right for earm that is extensive. No additional global rashes appreciated.) Lymphatic: No Adenopathy Was a procedure done? Was a procedure done?: No Differential Diagnosis (INTG) Differential Diagnosis: Other (Shingles) X-Ray, Labs, Meds, VS Vital Signs Date Time Temp Pulse Resp B/P (MAP) Pulse Ox O2 Delivery O2 Flow Rate FiO2 12/14/24 20:37 99.4 121 28 100/58 98 99.4 Current Medications Medications (Trade) Dose Ordered Sig/Dilip Route Start Time Stop Time Status Last Admin Acetaminophen/ Hydrocodone Bitart ([place] 10/325MG Tab) 1 tab ONCE ONCE PO 12/14/24 21:00 12/14/24 21:01 DC 12/14/24 22:36 X-Ray, Labs, Meds, VS Comment Advised patient that we will manage her pain today, but patient has medications to utilize to stave off pain concerns at home. Time of 1ST Reevaluation: 22:50 Reevaluation 1ST: Improved Consultation: PCP Patient Education/Counseling: Diagnosis, Treatment Family Education/Counseling: Diagnosis, Treatment SEPSIS Sepsis Screen Date sepsis recognized/suspect: Dec 14, 2024 Time Sepsis recognized/suspect: 2041 Recent Procedure: No On Antibiotic Therapy: No Respiratory Rate >20: No Heart Rate >90: No Temp<36 C (96.8 F) or >38.3 C: No SBP <90 or MAP <65 mmHG: No New Acute Mental Status Change: No Is the patient on CPAP, BIPAP,: No Vital Signs Date Time Temp Pulse Resp B/P (MAP) Pulse Ox O2 Delivery O2 Flow Rate FiO2 12/14/24 20:37 99.4 121 28 100/58 98 99.4 Medications Medications Dose Ordered Sig/Dilip Route Start Time Stop Time Status Last Admin Dose Admin Acetaminophen/ Hydrocodone Bitart 1 tab ONCE ONCE PO 12/14/24 21:00 12/14/24 21:01 DC 12/14/24 22:36 Departure 1 Departure Time of Disposition: 22:51 Impression: Primary Impression: Herpes zoster Disposition: HOME / SELF CARE / HOMELESS Condition: Stable Additional Instructions: Advised patient utilize medication as directed by prior providers prescription. Advised follow up with the primary care provider for possible shingles immunization shot. Discharged With: Self, Friend Critical Care Note Critical Care Time?: No Stability Stability form required: No Heart Score Heart Score: Heart Score Response (Comments) Value History N/A 0 EKG N/A 0 Age N/A 0 Risk Factors N/A 0 Troponin N/A 0 Total 0 KIT ESPOSITO PAC Dec 14, 2024 22:51
== END 2024-12-14 23:40 | disposition home or self-care (01) ==
LOC: EDBD 20:16 → ER 20:16 → EDUNIT# 20:16 → ER 23:40
DX: B02.9 Zoster without complications (principal); F20.9 Schizophrenia, unspecified; I50.9 Heart failure, unspecified; Z79.82 Long term (current) use of aspirin; Z79.899 Other long term (current) drug therapy; Z87.11 Personal history of peptic ulcer disease; Z88.6 Allergy status to analgesic agent